=== PATIENT | female | born 1975 | race African-American/Black ===

== ENCOUNTER 2018-07-08 00:09 | Emergency (ER) | payer MEDICAID ==
[2018-07-08 00:36] LABS: ABSOLUTE BASOPHILS # (AUTO) 0.1 10^3/uL (0.0-0.2); ABSOLUTE EOSINOPHILS # (AUTO) 0.6 10^3/uL (0.0-0.6); ABSOLUTE LYMPHOCYTES (AUTO) 1.9 10^3/uL (0.5-4.7); ABSOLUTE MONOCYTES (AUTO) 1.5 10^3/uL (0.1-1.4); ABSOLUTE NEUT (AUTO) 8.3 10^3/uL (1.7-8.2); BASOPHILS % (AUTO) 0.5 % (0-2); EOSINOPHILS % (AUTO) 4.7 % (0-6); HEMATOCRIT 38.7 % (36.0-47.0); HEMOGLOBIN 12.4 g/dL (12.0-15.5); LYMPHOCYTES % (AUTO) 15.1 % (13-45); MEAN CORPUSCULAR HEMOGLOBIN 24.3 pg (27.0-33.4); MEAN CORPUSCULAR HGB CONC 32.1 g/dL (32.0-36.0); MEAN CORPUSCULAR VOLUME 76 fl (80-97); PLATELET COUNT 333 10^3/uL (150-450); RED BLOOD COUNT 5.12 10^6/uL (3.72-5.28); RED CELL DISTRIBUTION WIDTH 16.4 % (11.5-14.0); SEGMENTED NEUTROPHILS % (AUTO) 67.7 % (42-78); TOTAL CELLS COUNTED % (AUTO) 100 %; WHITE BLOOD COUNT 12.3 10^3/uL (4.0-10.5)
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
--- NOTE | 2018-07-08 00:57 | RADIOLOGY REPORT (SQ) ---
PROCEDURE: XR CHEST 1 VIEW HISTORY: SOB COMPARISON: None TECHNIQUE: The study was done on 07/08/2018 at 12:42 AM local time Single projection of the chest was done. FINDINGS: There is presence of mild left perihilar and mild right upper lung zone interstitial infiltrates. Follow-up to complete resolution of these infiltrates is suggested . There are no pneumothoraces or pleural effusions. The pulmonary vascularity is normal. The cardiomediastinal silhouette is unremarkable for patient's age and sex. IMPRESSION: There is presence of mild left perihilar and mild right upper lung zone interstitial infiltrates. Follow-up to complete resolution of these infiltrates is suggested .
[2018-07-08 01:11] LABS: VENOUS BLOOD BASE EXCESS 6.9 mmol/L; VENOUS BLOOD HCO3 34.1 mmol/L (20-32); VENOUS BLOOD PCO2 61.1 mmHg (35-63); VENOUS BLOOD PH 7.37 (7.30-7.42)
[2018-07-08 01:25] LABS: ALANINE AMINOTRANSFERASE 66 U/L (9-52); ALBUMIN 4.1 g/dL (3.5-5.0); ALKALINE PHOSPHATASE 331 U/L (38-126); ANION GAP 8 (5-19); ASPARTATE AMINO TRANSFERASE 82 U/L (14-36); BILIRUBIN,DIRECT 0.4 mg/dL (0.0-0.4); BILIRUBIN,TOTAL 0.5 mg/dL (0.2-1.3); BLOOD UREA NITROGEN 11 mg/dL (7-20); CARBON DIOXIDE 38 mmol/L (22-30); CHLORIDE 98 mmol/L (98-107); CREATINE KINASE 132 U/L (30-135); GLUCOSE 144 mg/dL (75-110); POTASSIUM 4.1 mmol/L (3.6-5.0); SODIUM 144.1 mmol/L (137-145); TOTAL PROTEIN 8.4 g/dL (6.3-8.2)
[2018-07-08 01:37] LABS: CREATINE KINASE MB 3.67 ng/mL (<4.55); NT PRO BNP 31 pg/mL (<125)
[2018-07-08 01:39] LABS: TROPONIN I < 0.012 ng/mL
[2018-07-08 02:57] VITALS: BP 147/96
--- NOTE | 2018-07-08 07:50 | EKG REPORT ---
SEVERITY:- ABNORMAL ECG - SINUS TACHYCARDIA NONSPECIFIC ST-T CHANGES, DIFFUSE. : Confirmed by: Antonio Snow MD 08-Jul-2018 07:49:33
== END 2018-07-08 02:57 | disposition home or self-care (01) ==
LOC: ER 00:09
DX: R06.03 Acute respiratory distress (principal); D86.89 Sarcoidosis of other sites; R07.9 Chest pain, unspecified; E11.9 Type 2 diabetes mellitus without complications; I50.9 Heart failure, unspecified; I11.0 Hypertensive heart disease with heart failure; Z79.84 Long term (current) use of oral hypoglycemic drugs
CPT/HCPCS: 36415; 71045; 80053; 82550; 82553; 82803; 83880; 84484; 85025; 93005; 93010; 99285

== ENCOUNTER → 2018-10-10 | Outpatient (CLI) | payer MEDICAID ==
--- NOTE | 2018-10-10 13:11 | RADIOLOGY REPORT (SQ) ---
EXAM DESCRIPTION: CHEST PA/LATERAL COMPLETED DATE/TIME: 10/10/2018 12:40 pm REASON FOR STUDY: COUGH COMPARISON: 07/08/2018 EXAM PARAMETERS: NUMBER OF VIEWS: two views TECHNIQUE: Digital Frontal and Lateral radiographic views of the chest acquired. RADIATION DOSE: NA LIMITATIONS: none FINDINGS: LUNGS AND PLEURA: Fairly extensive superimposed mixed airspace disease and interstitial d isease upon the chronic changes in the lungs. No pneumothorax or pleural effusion. MEDIASTINUM AND HILAR STRUCTURES: No masses or contour abnormalities. HEART AND VASCULAR STRUCTURES: Cardiomegaly, stable finding. No evidence for failure. BONES: No acute findings. HARDWARE: None in the chest. OTHER: No other significant finding. IMPRESSION: 1. Fairly extensive superimposed mixed airspace and interstitial disease upon the chron ic changes in the lungs, suggest infiltrates. Correlation suggested. TECHNICAL DOCUMENTATION: JOB ID: [id number] [employer]- All Rights Reserved Reading location - IP/workstation name: [email or web address]
== END ==
LOC: OD 12:14
PROVIDERS: ATTEND Physician Assistant
DX: J84.9 Interstitial pulmonary disease, unspecified (principal); R05 Cough; I51.7 Cardiomegaly
CPT/HCPCS: 71046

== ENCOUNTER → 2018-10-26 | Outpatient (CLI) | payer MEDICAID ==
--- NOTE | 2018-10-26 13:16 | RADIOLOGY REPORT (SQ) ---
EXAM DESCRIPTION: CHEST PA/LATERAL COMPLETED DATE/TIME: 10/26/2018 11:50 am REASON FOR STUDY: SARCOIDOSIS OF LUNG COMPARISON: 10/10/2018. 07/08/2018. TECHNIQUE: Frontal and lateral radiographic views of the chest acquired. NUMBER OF VIEWS: Two view. LIMITATIONS: None. FINDINGS: LUNGS AND PLEURA: Stable appearance. Extensive pulmonary opacities likely chronic interst itial disease. No change compared to prior. No developing pleural fluid. No pneumothorax. MEDIASTINUM AND HILAR STRUCTURES: Stable contours with some chronic distortion of the hilar regions. HEART AND VASCULAR STRUCTURES: Heart normal size. No evidence for failure. BONES: No acute findings. HARDWARE: None in the chest. OTHER: No other significant finding. IMPRESSION: Extensive chronic interstitial lung disease. Similar appearance compared to study from earlier this month. Probably slightly progressive compared to 2018. TECHNICAL DOCUMENTATION: JOB ID: [id number] [employer]- All Rights Reserved Reading location - IP/workstation name: [email or web address]
== END ==
LOC: OD 11:35
PROVIDERS: ATTEND Physician Assistant
DX: D86.0 Sarcoidosis of lung (principal); J84.9 Interstitial pulmonary disease, unspecified
CPT/HCPCS: 71046

== ENCOUNTER → 2019-02-02 | Outpatient (CLI) | payer MEDICAID ==
--- NOTE | 2019-02-02 17:11 | RADIOLOGY REPORT (SQ) ---
EXAM DESCRIPTION: CT CHEST WITHOUT COMPLETED DATE/TIME: 02/02/2019 3:14 pm REASON FOR STUDY: D86.0 SARCOIDOSIS OF LUNG D86.0 SARCOIDOSIS OF LUNG COMPARISON: Chest films 10/26/2018, 10/10/2018, 07/08/2018 TECHNIQUE: CT scan performed of the chest without intravenous contrast. Images reviewed with lung, soft tissue and bone windows. Reconstructed coronal and sagittal MPR images reviewed. All images st ored on PACS. All CT scanners at this facility use dose modulation, iterative reconstruction, and/or weight based d osing when appropriate to reduce radiation dose to as low as reasonably achievable (ALARA). [facility]: Dose Right [facility]: CareDose [facility]: Dose Right [facility]: Teradose 4D [facility]: Smart Technologies RADIATION DOSE: CT Rad equipment meets quality standard of care and radiation dose reduction techniq ues were employed. CTDIvol: 19.2 mGy. DLP: 672 mGy-cm. mGy. LIMITATIONS: No technical limitations. FINDINGS: LUNGS AND PLEURA: End-stage appearance of sarcoidosis in along common dense fibrosis in th e lung parenchyma around the bilateral marbella, best shown on coronal images 69-75. There chronic increased interstitial markings with thickened interlobular septa. Multiple foci of ground-glass opacity throughout both lungs. No pneumothorax. No pleural effusion. No worrisome pulmonary nodules. HILAR AND MEDIASTINAL STRUCTURES: No identified masses or abnormal nodes. No obvious aneurysm. HEART AND VASCULAR STRUCTURES: Moderate cardiomegaly. No pericardial effusion UPPER ABDOMEN: Liver is very nodular in contour. Spleen upper limits of normal for size THYROID AND OTHER SOFT TISSUES: No masses. No adenopathy. BONES: No significant finding. HARDWARE: None in the chest. OTHER: No other significant findings. IMPRESSION: Dense perihilar bilateral pulmonary fibrosis, similar compared to plain films since 2018 Thickened interlobular septae around the periphery of both lungs, diffuse ground-glass opacities in t he lung parenchyma. Similar compared to plain films since 2018 Nodular contour of the liver, question diffuse sarcoid involvement TECHNICAL DOCUMENTATION: JOB ID: [id number] Quality ID # [id number]: Final reports with documentation of one or more dose reduction techniques (e.g., Au tomated exposure control, adjustment of the mA and/or kV according to patient size, use of iterative reconstruction technique) 2010 [employer]- All Rights Reserved Reading location - IP/workstation name: [email or web address]
== END ==
LOC: RAD 14:41
PROVIDERS: ATTEND Internal Medicine Critical Care Medicine
DX: D86.0 Sarcoidosis of lung (principal); R09.02 Hypoxemia; I50.9 Heart failure, unspecified
CPT/HCPCS: 71250

== ENCOUNTER 2019-06-26 16:50 | Emergency (ER) | payer MEDICAID ==
[2019-06-26] MEDS ORDERED: METHYLPREDNISOLONE INJ 125 MG/2 ML SDV IV ONE (17:16)
[2019-06-26] MEDS ORDERED: IPRATROPIUM/ALBUTEROL 0.5-2.5 MG/3 ML AMPUL NEB ONE (17:17)
--- NOTE | 2019-06-26 17:23 | ER Document Report ---
ED General - General Chief Complaint: Chest Pain > 30 Stated Complaint: RESPIRATORY DISTRESS Time Seen by Provider: 06/26/19 17:05 Primary Care Provider: BOB CACERES PA [Primary Care Provider] - Follow up as needed TRAVEL OUTSIDE OF THE [place] IN LAST 30 DAYS: No - HPI Notes: 43-year-old female with long standing history of severe pulmonary sarcoidosis presenting today with increased shortness of breath despite use of her usual 6 L of oxygen at home. She also reports intermittent sharp scattered chest pains worse with coughing and deep inspiration. She is producing some clear sputum. She denies hemoptysis. She denies fever or chills. Says she feels fatigued. Patient denies any prior history of thromboembolic disease. She has been diagnosed with CHF in the past. She has hypertension and she is also a type II diabetic. Patient is currently on prednisone 10 mg daily. She uses nebulizer treatments at home and is taken 2 treatments today. She is followed locally by a hook loader and primary care physician. Her last hospitalization was over one year ago at [facility] with a diagnosis of pneumonia. - Related Data Allergies/Adverse Reactions: No Known Allergies Allergy (Verified 07/08/18 00:26) Past Medical History - General Information source: Patient - Social History Smoking Status: Unknown if Ever Smoked Family History: Reviewed & Not Pertinent Patient has suicidal ideation: No Patient has homicidal ideation: No - Past Medical History Cardiac Medical History: Reports: Hx Congestive Heart Failure Pulmonary Medical History: Reports: Other - Pulmonary sarcoidosis Endocrine Medical History: Reports: Hx Diabetes Mellitus Type 2 Renal/ Medical History: Denies: Hx Peritoneal Dialysis Skin Medical History: Reports Other - Cutaneous involvement with sarcoidosis Past Surgical History: Reports: Hx Hysterectomy, Hx Thyroid Surgery Review of Systems - Review of Systems Notes: Constitutional: Negative for fever. HENT: Negative for sore throat. Eyes: Negative for visual changes. Cardiovascular: As per HPI. Respiratory: As per HPI . Gastrointestinal: Negative for abdominal pain, vomiting or diarrhea. Genitourinary: Negative for dysuria. Musculoskeletal: Negative for back pain. Skin: Skin lesions related to sarcoidosis. Neurological: Negative for headaches, focal weakness or numbness. 10 point ROS negative except as marked above and in HPI. Physical Exam - Vital signs Vitals: Resp Pulse Ox 24 H 90 L 06/26/19 17:01 06/26/19 17:01 Notes: GENERAL: Somewhat obese female approximately stated age who appears mildly dyspneic on oxygen. She is awake and alert. SKIN: Good turgor. Multiple nodular lesions of the facial area which she attributes to her sarcoidosis. HEAD: Normocephalic atraumatic. EYES: PERRLA. Conjunctivae and sclerae clear. EARS: CANALS AND TMS CLEAR. NOSE: CLEAR. MOUTH: Moist mucosa. Edentulous. No stridor or edema. No drooling. NECK: Supple. Thyroidectomy scar. No masses or thyromegaly. No adenopathy. Carotids 2+ without bruits. No JVD. BACK: Symmetrical without tenderness. CHEST: Tachypneic. Respirations mildly labored. Diffuse coarse rales bilaterally. HEART: Regular rhythm. No murmur gallop or rub. ABDOMEN: Obese. Soft nontender without masses, organomegaly or rebound. Bowel sounds normally active. No bruits. GENITALIA: Deferred. EXTREMITIES: No edema. No calf tenderness. Cap refill less than 1.5 seconds. Dorsalis pedis and posterior tibial pulses 3+ and symmetrical. NEUROLOGICAL: GCS 15. Alert and oriented x3. Normal gait. Fluent speech. Cranial nerves II through XII intact. Sensorimotor and cerebellar normal. Normal tone Psychiatric: Anxious. Flat affect. Course - Re-evaluation Re-evalutation: 06/26/19 17:26 Differential diagnosis at this time include respiratory failure, sarcoidosis flare, acute bronchitis pneumonia CHF and pulmonary embolus 06/26/19 19:08 Patient is received a nebulizer treatment here and some Solu-Medrol 125 mg IV. Her blood gas does not not show significant decompensation on her usual 6 L of O2. Her chest x-ray is grossly abnormal but unchanged from baseline per radiology consistent with known sarcoidosis. There is no evidence of vascular congestion, no pleural effusion no pneumothorax and no new focal infiltrate. White count is mildly elevated. D-dimer is normal. Troponin is normal. BNP is not elevated. All these findings have been discussed with patient and her . She very much wants to go home today if possible. I will give the patient a dose of Rocephin here as I suspect she may have some superimposed bronchitis and she would be a high risk patient because of her substantial pulmonary disease. I will recheck her within the next hour and anticipate sending her home on oral antibiotic and will increase her dose of steroids for a few days and have her follow-up with her hook loader. 06/26/19 20:47 Continues to do well at this time and is requesting discharge. - Vital Signs Vital signs: Temp Pulse Resp BP Pulse Ox 98.4 F 19 124/92 H 95 06/26/19 17:15 06/26/19 17:02 06/26/19 17:02 06/26/19 17:02 - Laboratory Result Diagrams: 06/26/19 17:04 06/26/19 17:04 Laboratory results interpreted by me: 06/26/19 06/26/19 06/26/19 17:04 17:04 17:43 WBC 13.9 H MCV 77 L MCH 24.6 L MCHC 31.9 L RDW 16.1 H Lymph % (Auto) 7.8 L Absolute Neuts (auto) 11.7 H Seg Neutrophils % 84.0 H Carbonic Acid 1.48 H ABG pCO2 49.2 H ABG HCO3 30.2 H ABG Total CO2 31.7 H Glucose 191 H AST 56 H Alkaline Phosphatase 291 H Total Protein 8.7 H - Diagnostic Test Radiology reviewed: Reports reviewed - EKG Interpretation by Me EKG shows normal: Sinus rhythm Rate: Normal Rhythm: Other - First-degree AV block Additional EKG results interpreted by me: 06/26/19 17:52 No prior tracing for comparison. No acute ST-T wave changes. Procedures - Additional Procedures ABG Additional Procedures: ABG - Drawn by me personally at bedside. Right radial artery. Negative Santosh test. Well-tolerated by the patient with no c omplications noted. Discharge - Discharge Clinical Impression: Pulmonary sarcoidosis Acute bronchitis Qualifiers: Bronchitis organism: unspecified organism Qualified Code(s): J20.9 - Acute bronchitis, unspecified Condition: Stable Disposition: HOME, SELF-CARE Additional Instructions: Bronchitis You have acute bronchitis. This disease is an infection or inflammation of the air passageways in your lungs. Symptoms usually include cough, low grade fever, shortness of breath, and wheezing. The cough usually persists for a couple of weeks. Most cases of bronchitis get better without antibiotics. We prescribe antibiotics when we believe bacteria are damaging your airways, or if there's high risk the bronchitis will worsen into pneumonia. Increase your fluid intake. A cool mist humidifier may make your lungs more comfortable. An expectorant (cough medicine that loosens phlegm) can help. If you smoke, STOP!!! Recovery from bronchitis can be somewhat slow, but you should see improvement within a day or two. Repeated episodes of bronchitis may result in lung damage -- for example, chronic bronchitis, recurrent pneumonias, or emphysema. Call the doctor if you develop increasing fever, shortness of breath, chest pain, bloody sputum, or otherwise worsen. If you have not improved at all after several days, contact the physician. Continue your usual home oxygen. Increase your prednisone to 30 mg a day for 3 days, then 20 mg a day for 3 days and then back to your usual 10 mg/day. Take prescribed antibiotic. Use your nebulizer as needed. Return here as needed for new or worsening symptoms. Follow-up with your primary care doctor and her hook loader this week. Prescriptions: Doxycycline Hyclate 100 mg PO BID #14 capsule Referrals: BOB CACERES PA [Primary Care Provider] - Follow up as needed
[2019-06-26 17:28] LABS: ABSOLUTE EOSINOPHILS # (AUTO) 0.3 10^3/uL (0.0-0.6); ABSOLUTE LYMPHOCYTES (AUTO) 1.1 10^3/uL (0.5-4.7); ABSOLUTE MONOCYTES (AUTO) 0.8 10^3/uL (0.1-1.4); ABSOLUTE NEUT (AUTO) 11.7 10^3/uL (1.7-8.2); BASOPHILS % (AUTO) 0.3 % (0-2); EOSINOPHILS % (AUTO) 2.2 % (0-6); HEMATOCRIT 37.7 % (36.0-47.0); LYMPHOCYTES % (AUTO) 7.8 % (13-45); MEAN CORPUSCULAR HEMOGLOBIN 24.6 pg (27.0-33.4); MEAN CORPUSCULAR HGB CONC 31.9 g/dL (32.0-36.0); MEAN CORPUSCULAR VOLUME 77 fl (80-97); MONOCYTES % (AUTO) 5.7 % (3-13); PLATELET COUNT 300 10^3/uL (150-450); RED BLOOD COUNT 4.87 10^6/uL (3.72-5.28); RED CELL DISTRIBUTION WIDTH 16.1 % (11.5-14.0); TOTAL CELLS COUNTED % (AUTO) 100 %; WHITE BLOOD COUNT 13.9 10^3/uL (4.0-10.5)
[2019-06-26 17:33] LABS: INTERNATIONAL RATION (INR) 0.94; PROTHROMBIN TIME 12.6 SEC (11.4-15.4)
[2019-06-26 17:34] LABS: PARTIAL THROMBOPLASTIN TIME 29.7 SEC (23.5-35.8)
[2019-06-26 17:50] LABS: ALBUMIN 4.3 g/dL (3.5-5.0); ALKALINE PHOSPHATASE 291 U/L (38-126); ANION GAP 12 (5-19); ASPARTATE AMINO TRANSFERASE 56 U/L (14-36); BILIRUBIN,DIRECT 0.3 mg/dL (0.0-0.4); BILIRUBIN,TOTAL 0.4 mg/dL (0.2-1.3); BLOOD UREA NITROGEN 11 mg/dL (7-20); CALCIUM 9.7 mg/dL (8.4-10.2); CARBON DIOXIDE 30 mmol/L (22-30); CHLORIDE 101 mmol/L (98-107); CREATINE KINASE 91 U/L (30-135); GLUCOSE 191 mg/dL (75-110); POTASSIUM 4.2 mmol/L (3.6-5.0); TOTAL PROTEIN 8.7 g/dL (6.3-8.2)
[2019-06-26 17:59] LABS: CREATINE KINASE MB 2.45 ng/mL (<4.55)
--- NOTE | 2019-06-26 18:00 | RADIOLOGY REPORT (SQ) ---
EXAM DESCRIPTION: CHEST SINGLE VIEW COMPLETED DATE/TIME: 06/26/2019 5:33 pm REASON FOR STUDY: chest pain, sob COMPARISON: 10/26/2018 TECHNIQUE: Single frontal radiographic view of the chest acquired. NUMBER OF VIEWS: One view. LIMITATIONS: None. FINDINGS: LUNGS AND PLEURA: No pneumothorax. Similar diffuse reticulonodular-confluent opacities co mpared with the prior exam. No acute consolidation or pleural effusion. MEDIASTINUM AND HILAR STRUCTURES: Stable. HEART AND VASCULAR STRUCTURES: Stable. BONES: No acute findings. HARDWARE: None in the chest. OTHER: No other significant finding. IMPRESSION: Similar diffuse reticulonodular-confluent opacities compared with the prior exam. No ac ak chin consolidation or pleural effusion. TECHNICAL DOCUMENTATION: JOB ID: [id number] [place]-72 2010 [employer]- All Rights Reserved Reading location - IP/workstation name: [email or web address]
[2019-06-26 18:03] LABS: TROPONIN I < 0.012 ng/mL
[2019-06-26 18:07] LABS: ARTERIAL BLOOD BASE EXCESS 4.6 mmol/L; ARTERIAL BLOOD H2CO3 1.48 mmol/L (1.05-1.35); ARTERIAL BLOOD HCO3 30.2 mmol/L (20-24); ARTERIAL BLOOD O2 SATURATION 97.4 % (94-98); ARTERIAL BLOOD PCO2 49.2 mmHg (35-45); ARTERIAL BLOOD PH 7.41 (7.35-7.45); ARTERIAL BLOOD TOTAL CO2 31.7 mmol/L (21-25)
[2019-06-26 18:09] LABS: ARTERIAL BLOOD FIO2 6L
[2019-06-26] MEDS ORDERED: CEFTRIAXONE 1 GM/D5W RTU 1 GM/50 ML RTUPB IV ONE (19:06)
--- NOTE | 2019-06-26 19:12 | EKG REPORT ---
SEVERITY:- ABNORMAL ECG - SINUS RHYTHM FIRST DEGREE AV BLOCK NONSPECIFIC LATERAL ST-T CHANGES : Confirmed by: Antonio Snow MD 26-Jun-2019 19:11:42
[2019-06-26 20:54] VITALS: BP 145/89
== END 2019-06-26 21:04 | disposition home or self-care (01) ==
LOC: ER 16:50
DX: J20.9 Acute bronchitis, unspecified (principal); D86.0 Sarcoidosis of lung; R07.9 Chest pain, unspecified; R06.02 Shortness of breath; E66.9 Obesity, unspecified; E11.9 Type 2 diabetes mellitus without complications; I50.9 Heart failure, unspecified; I11.0 Hypertensive heart disease with heart failure; Z90.710 Acquired absence of both cervix and uterus; Z99.81 Dependence on supplemental oxygen
CPT/HCPCS: 36415; 87040; 82553; 82803; 82550; 85025; 85610; 85730; 80053; 84484; 85379; 83880; 71045; 93005; 93010; J2930; J0696; J7620; 36600; 94640; 96365; 96375; 99285

== ENCOUNTER 2019-07-27 11:46 | Observation (INO) | payer MEDICAID ==
[2019-07-27] MEDS ORDERED: IPRATROPIUM/ALBUTEROL 0.5-2.5 MG/3 ML AMPUL NEB ONE ×2 (12:03→14:25)
--- NOTE | 2019-07-27 12:03 | ER Document Report ---
ED Respiratory Problem - General Chief Complaint: Breathing Difficulty Stated Complaint: DIFFICULTY BREATHING Time Seen by Provider: 07/27/19 12:03 Primary Care Provider: BOB CACERES PA [Primary Care Provider] - Follow up as needed Notes: Patient is a 43-year-old female with a history of sarcoidosis and bronchospasm who comes in with difficulty breathing. Patient states that she usually wears 5 to 6 L of oxygen during the day and 8 L at night with CPAP. Her breathing has gotten worse over the last 2 days. She has had a productive cough but states clear sputum. No fever. Unaware of sick contacts. No recent travel. Patient was seen in June for similar symptoms. States she got better and then sta rted to get worse again recently. She is still taking prednisone 10 mg daily. TRAVEL OUTSIDE OF THE [place] IN LAST 30 DAYS: No - HPI Patient complains to provider of: Short of breath Duration: Worse/persistent Quality of pain: No pain Pain Level: Denies Sputum amount: Small Sputum color: Clear - Related Data Allergies/Adverse Reactions: No Known Allergies Allergy (Verified 07/08/18 00:26) Past Medical History - General Information source: Patient - Social History Smoking Status: Unknown if Ever Smoked Cigarette use (# per day): No Family History: Reviewed & Not Pertinent Endocrine Medical History: Reports: Hx Diabetes Mellitus Type 2 Renal/ Medical History: Denies: Hx Peritoneal Dialysis Past Surgical History: Reports: Hx Hysterectomy, Hx Thyroid Surgery Review of Systems - Review of Systems Constitutional: No symptoms reported EENT: No symptoms reported Cardiovascular: No symptoms reported Respiratory: See HPI, Cough, Short of breath Gastrointestinal: No symptoms reported Genitourinary: No symptoms reported Female Genitourinary: No symptoms reported Musculoskeletal: No symptoms reported Skin: No symptoms reported Hematologic/Lymphatic: No symptoms reported Neurological/Psychological: No symptoms reported Physical Exam - Vital signs Vitals: Resp BP Pulse Ox 27 H 137/91 H 92 07/27/19 12:37 07/27/19 12:37 07/27/19 12:37 Interpretation: Hypoxic, Tachypneic - General General appearance: Alert In distress: Moderate - HEENT Head: Normocephalic, Atraumatic Eyes: Normal Pupils: PERRL - Respiratory Respiratory status: Respiratory distress Chest status: Nontender Breath sounds: Decreased air movement, Rales, Wheezing Chest palpation: Normal - Cardiovascular Rhythm: Regular Heart sounds: Normal auscultation Murmur: No - Abdominal Inspection: Morbidly Obese Distension: No distension Bowel sounds: Normal Tenderness: Nontender Organomegaly: No organomegaly - Back Back: Normal, Nontender - Extremities General upper extremity: Normal inspection, Nontender, Normal color, Normal ROM, Normal temperature General lower extremity: Normal inspection, Nontender, Normal color, Normal ROM, Normal temperature, Normal weight bearing. No: Catina's sign - Neurological Neuro grossly intact: Yes Cognition: Normal Orientation: AAOx4 Racheal Coma Scale Eye Opening: Spontaneous Taylor Coma Scale Verbal: Oriented Taylor Coma Scale Motor: Obeys Commands Taylor Coma Scale Total: 15 Speech: Normal Motor strength normal: LUE, RUE, LLE, RLE Sensory: Normal - Psychological Associated symptoms: Normal affect, Normal mood - Skin Skin Temperature: Warm Skin Moisture: Dry Skin Color: Normal Course - Re-evaluation Re-evalutation: 07/27/19 15:03 Patient more comfortable on BiPAP 07/27/19 17:25 Patient is a 43-year-old female who comes in with difficulty breathing. Lactic is up trending despite fluid bolus. No evidence for heart failure. More concerning the patient may have pneumonia that I cannot visualize on chest x- ray. I have attempted to send the patient for a CTA to further evaluate her symptoms, but she has been unable to tolerate this. Patient with negative CTA last year for PE. At this time, she is comfortable on BiPAP but will require admission for respiratory distress and worsening hypoxia at home despite her oxygen there. I have discussed this with Dr. Cazares who will admit the patient to the IMCU. Patient is agreeable to this plan. - Vital Signs Vital signs: Temp Pulse Resp BP Pulse Ox 98.5 F 115 H 14 137/83 H 96 07/27/19 12:58 07/27/19 12:58 07/27/19 14:10 07/27/19 13:01 07/27/19 14:10 - Laboratory Result Diagrams: 07/27/19 12:41 07/27/19 12:41 Laboratory results interpreted by me: 07/27/19 07/27/19 07/27/19 12:41 12:41 12:41 WBC 16.3 H MCV 76 L MCH 24.3 L MCHC 31.9 L RDW 16.4 H Lymph % (Auto) 6.4 L Absolute Neuts (auto) 13.2 H Absolute Monos (auto) 1.5 H Seg Neutrophils % 81.0 H VBG HCO3 Chloride 96 L Carbon Dioxide 35 H Glucose 220 H Lactic Acid (Sepsis) 2.8 H AST 67 H Alkaline Phosphatase 265 H 07/27/19 07/27/19 12:41 15:32 WBC MCV MCH MCHC RDW Lymph % (Auto) Absolute Neuts (auto) Absolute Monos (auto) Seg Neutrophils % VBG HCO3 33.1 H Chloride Carbon Dioxide Glucose Lactic Acid (Sepsis) 2.9 H AST Alkaline Phosphatase Critical Care Note - Critical Care Note Total time excluding time spent on procedures (mins): 45 - Evaluation and management of respiratory distress, multiple re-evaluations, coordination of admission, counseling of patient and family Discharge - Discharge Clinical Impression: Respiratory distress Condition: Stable Disposition: ADMITTED INPATIENT Admitting Provider: Nicole (Hospitalist) Unit Admitted: IMCU Referrals: BOB CACERES PA [Primary Care Provider] - Follow up as needed
[2019-07-27 13:15] LABS: VENOUS BLOOD HCO3 33.1 mmol/L (20-32); VENOUS BLOOD PCO2 59.3 mmHg (35-63); VENOUS BLOOD PH 7.36 (7.30-7.42)
[2019-07-27 13:17] LABS: ABSOLUTE EOSINOPHILS # (AUTO) 0.5 10^3/uL (0.0-0.6); ABSOLUTE MONOCYTES (AUTO) 1.5 10^3/uL (0.1-1.4); ABSOLUTE NEUT (AUTO) 13.2 10^3/uL (1.7-8.2); BASOPHILS % (AUTO) 0.3 % (0-2); EOSINOPHILS % (AUTO) 3.2 % (0-6); HEMATOCRIT 37.5 % (36.0-47.0); LYMPHOCYTES % (AUTO) 6.4 % (13-45); MEAN CORPUSCULAR HEMOGLOBIN 24.3 pg (27.0-33.4); MEAN CORPUSCULAR HGB CONC 31.9 g/dL (32.0-36.0); MEAN CORPUSCULAR VOLUME 76 fl (80-97); MONOCYTES % (AUTO) 9.1 % (3-13); PLATELET COUNT 293 10^3/uL (150-450); RED BLOOD COUNT 4.92 10^6/uL (3.72-5.28); RED CELL DISTRIBUTION WIDTH 16.4 % (11.5-14.0); TOTAL CELLS COUNTED % (AUTO) 100 %; WHITE BLOOD COUNT 16.3 10^3/uL (4.0-10.5)
--- NOTE | 2019-07-27 13:21 | RADIOLOGY REPORT (SQ) ---
EXAM DESCRIPTION: CHEST SINGLE VIEW COMPLETED DATE/TIME: 07/27/2019 12:55 pm REASON FOR STUDY: pt will be in room 6 when clean-sepsis protocol COMPARISON: 06/26/2019 NUMBER OF VIEWS: Single view. TECHNIQUE: Single frontal radiographic view of the chest acquired. LIMITATIONS: None. FINDINGS: LUNGS AND PLEURA: Diffuse pulmonary fibrosis, more conspicuous in the perihilar regions. Patient has known chronic sarcoid. No obvious superimposed pneumonia. MEDIASTINUM AND HILAR STRUCTURES: Stable. HEART AND VASCULATURE: Stable cardiomegaly. BONES: No acute findings. HARDWARE: None in the chest. OTHER: No other significant finding. IMPRESSION: Chronic sarcoid. Pulmonary fibrosis. No acute findings. TECHNICAL DOCUMENTATION: JOB ID: [id number] [employer]- All Rights Reserved Reading location - IP/workstation name: [email or web address]
[2019-07-27 13:26] LABS: PROTHROMBIN TIME 13.2 SEC (11.4-15.4)
[2019-07-27 13:33] LABS: A TYPE INFLUENZA AG NEGATIVE (NEGATIVE); ALBUMIN 4.3 g/dL (3.5-5.0); ALKALINE PHOSPHATASE 265 U/L (38-126); ANION GAP 12 (5-19); ASPARTATE AMINO TRANSFERASE 67 U/L (14-36); B INFLUENZA AG NEGATIVE (NEGATIVE); BILIRUBIN,DIRECT 0.4 mg/dL (0.0-0.4); BILIRUBIN,TOTAL 0.9 mg/dL (0.2-1.3); BLOOD UREA NITROGEN 7 mg/dL (7-20); CALCIUM 9.7 mg/dL (8.4-10.2); CARBON DIOXIDE 35 mmol/L (22-30); CHLORIDE 96 mmol/L (98-107); GLUCOSE 220 mg/dL (75-110); POTASSIUM 3.6 mmol/L (3.6-5.0)
[2019-07-27] MEDS ORDERED: METHYLPREDNISOLONE INJ 125 MG/2 ML SDV IV ONE (14:24)
[2019-07-27] MEDS ORDERED: NORMAL SALINE 500 ML IV ONE (14:40)
[2019-07-27] MEDS: MAGNESIUM SULFATE/D5W 1 GM/100 ML RTUPB IV SCH (15:26)
[2019-07-27 15:30] LABS: NT PRO BNP 53 pg/mL (<125); TROPONIN I < 0.012 ng/mL
[2019-07-27] MEDS ORDERED: LEVOFLOXACIN 750 MG/D5W RTU 750 MG/150 ML RTUPB IV ONE (17:17)
[2019-07-27] MEDS ORDERED: IPRATROPIUM/ALBUTEROL 0.5-2.5 MG/3 ML AMPUL NEB PRN (17:55)
[2019-07-27] MEDS ORDERED: DEXTROSE 50%-WATER 25 GM/50 ML DISP.SYRIN IV PRN ×2 (17:55)
[2019-07-27] MEDS ORDERED: DEXTROSE 40% GEL 15 GM TUBE PO PRN ×2 (17:55)
[2019-07-27] MEDS ORDERED: GLUCAGON,HUMAN RECOMB 1 MG INJ IM PRN (17:55)
--- NOTE | 2019-07-27 18:03 | PDOC H&P ---
History of Present Illness Admission Date/PCP: 07/27/19 17:27 SHELDON WILHELM Patient complains of: SOB History of Present Illness: TRE WARREN is a 43 year old female with a past medical history of chronic hypoxemic respiratory failure on 6 L of home O2, severe pulmonary sarcoidosis, sarcoid liver, and hypertension who presented with increasing shortness of breath. Patient says that she has chronic shortness of breath at her baseline. She reports of worsening shortness of breath in the past 2 days. She says that she gets this when the humidity significantly changes or when it rains heavily. She reports chronic cough but denies any recent increase in sputum production. Denies fever or chills. In the ER, she was noted to be very tachypneic. Work- up was remarkable for increased lactate and leukocytosis. She was given Solu- Medrol and magnesium and breathing treatment and she reported partial relief. She was placed on BiPAP. She expressed she wants to be discharged from the ER but after further discussion, she agreed to be admitted. She denies history of congestive heart failure. She says she was referred by Dr. Campos to Dr. Snow earlier this year to assess for CHF. She reports she had an echo done at his clinic and was told she does not have CHF. Past Medical History Cardiac Medical History: Reports: Congestive Heart Failure Endocrine Medical History: Reports: Diabetes Mellitus Type 2 Past Surgical History Past Surgical History: Reports: Hysterectomy Social History Smoking Status: Unknown if Ever Smoked Electronic Cigarette use?: No Family History Family History: Reviewed & Not Pertinent Parental Family History Reviewed: Yes - No premature CAD Children Family History Reviewed: No Sibling(s) Family History Reviewed.: No Medication/Allergy Allergies/Adverse Reactions: No Known Allergies Allergy (Verified 07/08/18 00:26) Review of Systems All systems: reviewed and no additional remarkable complaints except as stated - As mentioned in HPI Physical Exam Vital Signs: Temp Pulse Resp BP Pulse Ox 98.5 F 115 H 14 137/83 H 96 07/27/19 12:58 07/27/19 12:58 07/27/19 14:10 07/27/19 13:01 07/27/19 14:10 Intake & Output 07/26/19 07/27/19 07/28/19 06:59 06:59 06:59 Intake Total 600 Balance 600 Weight 243 lb 2.718 oz General appearance: PRESENT: no acute distress, obese Head exam: PRESENT: atraumatic, normocephalic Eye exam: PRESENT: conjunctiva pink, EOMI, PERRLA. ABSENT: scleral icterus Ear exam: PRESENT: normal external ear exam Mouth exam: PRESENT: moist, tongue midline Neck exam: ABSENT: carotid bruit, JVD, lymphadenopathy, thyromegaly Respiratory exam: PRESENT: clear to auscultation lien, rales, rhonchi. ABSENT: wheezes Cardiovascular exam: PRESENT: RRR. ABSENT: diastolic murmur, rubs, systolic murmur Pulses: PRESENT: normal dorsalis pedis pul GI/Abdominal exam: PRESENT: normal bowel sounds, soft. ABSENT: distended, guarding, mass, organolmegaly, rebound, tenderness Rectal exam: PRESENT: deferred Extremities exam: PRESENT: +2 edema Neurological exam: PRESENT: alert, awake, oriented to person, oriented to place, oriented to time, oriented to situation, CN II-XII grossly intact. ABSENT: motor sensory deficit Results Laboratory Results: 07/27/19 12:41 07/27/19 12:41 07/27/19 07/27/19 07/27/19 12:41 12:41 12:41 WBC 16.3 H RBC 4.92 Hgb 12.0 Hct 37.5 MCV 76 L MCH 24.3 L MCHC 31.9 L RDW 16.4 H Plt Count 293 Seg Neutrophils % 81.0 H VBG pH 7.36 VBG pCO2 59.3 VBG HCO3 33.1 H VBG Base Excess 6.0 Sodium 143.1 Potassium 3.6 Chloride 96 L Carbon Dioxide 35 H Anion Gap 12 BUN 7 Creatinine 0.57 Est GFR ( Amer) > 60 Glucose 220 H Calcium 9.7 Total Bilirubin 0.9 AST 67 H Alkaline Phosphatase 265 H Total Protein 8.0 Albumin 4.3 07/27/19 12:41 Troponin I < 0.012 NT-Pro-B Natriuret Pep 53 Impressions: Chest X-Ray 07/27/19 12:00 IMPRESSION: Chronic sarcoid. Pulmonary fibrosis. No acute findings. Assessment and Plan - Diagnosis (1) Acute on chronic respiratory failure with hypoxia Is this a current diagnosis for this admission?: Yes Plan: Likely secondary to flareup of sarcoidosis. Suspect possible pneumonitis. Will empirically continue IV antibiotics. Will also place patient on high-dose IV steroids. CT of the chest was ordered palpation has severe claustrophobia. Offered to give her Ativan to try to calm her down but she refused and she says she cannot even tolerate the sight of a CT scan machine. Continue BiPAP PRN. (2) Sarcoidosis of lung Is this a current diagnosis for this admission?: Yes Plan: As per #1. (3) Hypertension Is this a current diagnosis for this admission?: Yes - Time Time Spent with patient: 25-34 minutes
--- NOTE | 2019-07-27 18:04 | ADVANCED CARE ---
- Diagnosis (1) Acute on chronic respiratory failure with hypoxia Diagnosis Current: Yes (2) Hypertension Diagnosis Current: Yes (3) Sarcoidosis of lung Diagnosis Current: Yes Resuscitation Status: Full Code Discussion: Discussed with patient and fimartha on the bedside. She know she has severe and irreversible lung disease however she verbalized that she wants to be a full code and prefers to receive chest compressions, defibrillation as well as mechanical ventilation if the need arises. She says that her fiancBg is her surrogate medical decision maker.
[2019-07-27] MEDS ORDERED: NORMAL SALINE 1000 ML 1,000 ML IV PRN (18:05)
[2019-07-27] MEDS: NORMAL SALINE 1000 ML 1,000 ML IV PRN ×2 (18:36→23:24)
[2019-07-27] MEDS: HEPARIN SOD (PORCINE) 5,000 UNIT/ML 1 ML VIAL SUBCUT SCH (22:10)
[2019-07-27] MEDS: INSULIN LISPRO 100 UNIT/ML 3 ML VIAL SUBCUT SCH (22:15)
[2019-07-27] MEDS: METHYLPREDNISOLONE INJ 40 MG/1 ML SDV IV SCH (22:15)
[2019-07-27] MEDS: LEVALBUTEROL HCL NEB 1.25 MG/3 ML AMPUL NEB SCH (22:15)
[2019-07-27] MEDS ORDERED: ACETAMINOPHEN 325 MG TABLET PO PRN (23:11)
[2019-07-28] MEDS: LEVALBUTEROL HCL NEB 1.25 MG/3 ML AMPUL NEB SCH ×4 (01:53→19:55)
[2019-07-28] MEDS: HEPARIN SOD (PORCINE) 5,000 UNIT/ML 1 ML VIAL SUBCUT SCH ×3 (05:05→21:56)
[2019-07-28] MEDS: METHYLPREDNISOLONE INJ 40 MG/1 ML SDV IV SCH ×2 (06:09→22:11)
[2019-07-28 06:53] LABS: ABSOLUTE BASOPHILS # (AUTO) 0.1 10^3/uL (0.0-0.2); ABSOLUTE LYMPHOCYTES (AUTO) 1.2 10^3/uL (0.5-4.7); ABSOLUTE MONOCYTES (AUTO) 0.9 10^3/uL (0.1-1.4); ABSOLUTE NEUT (AUTO) 15.7 10^3/uL (1.7-8.2); BASOPHILS % (AUTO) 0.3 % (0-2); EOSINOPHILS % (AUTO) 0.1 % (0-6); HEMATOCRIT 36.5 % (36.0-47.0); HEMOGLOBIN 11.5 g/dL (12.0-15.5); LYMPHOCYTES % (AUTO) 6.9 % (13-45); MEAN CORPUSCULAR HEMOGLOBIN 24.1 pg (27.0-33.4); MEAN CORPUSCULAR HGB CONC 31.5 g/dL (32.0-36.0); MEAN CORPUSCULAR VOLUME 76 fl (80-97); MONOCYTES % (AUTO) 5.3 % (3-13); PLATELET COUNT 280 10^3/uL (150-450); RED BLOOD COUNT 4.78 10^6/uL (3.72-5.28); RED CELL DISTRIBUTION WIDTH 16.6 % (11.5-14.0); SEGMENTED NEUTROPHILS % (AUTO) 87.4 % (42-78); TOTAL CELLS COUNTED % (AUTO) 100 %
[2019-07-28 07:16] LABS: ANION GAP 12 (5-19); BLOOD UREA NITROGEN 13 mg/dL (7-20); CALCIUM 10.3 mg/dL (8.4-10.2); CARBON DIOXIDE 29 mmol/L (22-30); CHLORIDE 100 mmol/L (98-107); GLUCOSE 285 mg/dL (75-110)
[2019-07-28] MEDS: INSULIN LISPRO 100 UNIT/ML 3 ML VIAL SUBCUT SCH ×4 (08:50→22:11)
[2019-07-28] MEDS: LEVOFLOXACIN 500 MG/D5W RTU 500 MG/100 ML RTUPB IV SCH (09:18)
--- NOTE | 2019-07-28 15:50 | EKG REPORT ---
SEVERITY:- BORDERLINE ECG - SINUS TACHYCARDIA PROBABLE LEFT ATRIAL ABNORMALITY : Confirmed by: Suresh Roman 28-Jul-2019 15:49:51
--- NOTE | 2019-07-28 16:01 | PDOC PROGRESS REPORT ---
Subjective Progress Note for:: 07/28/19 Subjective:: No acute event overnight. Patient was weaned off BiPAP overnight. She is currently saturating well and appears comfortable on nasal cannula. She says that her shortness of breath has improved overnight. Denies chest pain. Reason For Visit: ACUTE HYPOXIC RESPIRATORY FAILURE,SARCOIDOSIS Physical Exam Vital Signs: Temp Pulse Resp BP Pulse Ox 98.0 F 110 H 16 129/78 H 93 07/28/19 15:45 07/28/19 15:45 07/28/19 15:45 07/28/19 15:45 07/28/19 15:45 Intake & Output 07/27/19 07/28/19 07/29/19 06:59 06:59 06:59 Intake Total 2750 340 Balance 2750 340 Weight 243 lb 2.718 oz 243 lb 13.3 oz General appearance: PRESENT: no acute distress, well-developed, well-nourished Head exam: PRESENT: atraumatic, normocephalic Eye exam: PRESENT: conjunctiva pink, EOMI, PERRLA. ABSENT: scleral icterus Ear exam: PRESENT: normal external ear exam Mouth exam: PRESENT: moist, tongue midline Neck exam: ABSENT: carotid bruit, JVD, lymphadenopathy, thyromegaly Respiratory exam: PRESENT: rhonchi. ABSENT: rales, wheezes Cardiovascular exam: PRESENT: RRR. ABSENT: diastolic murmur, rubs, systolic murmur Pulses: PRESENT: normal dorsalis pedis pul GI/Abdominal exam: PRESENT: normal bowel sounds, soft. ABSENT: distended, guarding, mass, organolmegaly, rebound, tenderness Rectal exam: PRESENT: deferred Extremities exam: PRESENT: full ROM, +1 edema. ABSENT: calf tenderness, clubbing Neurological exam: PRESENT: alert, awake, oriented to person, oriented to place, oriented to time, oriented to situation, CN II-XII grossly intact. ABSENT: motor sensory deficit Results Laboratory Results: 07/28/19 06:36 07/28/19 06:36 07/28/19 07/28/19 07/28/19 06:36 06:36 06:36 WBC 18.0 H RBC 4.78 Hgb 11.5 L Hct 36.5 MCV 76 L MCH 24.1 L MCHC 31.5 L RDW 16.6 H Plt Count 280 Seg Neutrophils % 87.4 H Sodium 141.4 Potassium 5.0 D Chloride 100 Carbon Dioxide 29 Anion Gap 12 BUN 13 Creatinine 0.53 Est GFR ( Amer) > 60 Glucose 285 H Lactic Acid 2.1 Calcium 10.3 H 07/27/19 12:41 Troponin I < 0.012 NT-Pro-B Natriuret Pep 53 Impressions: Chest X-Ray 07/27/19 12:00 IMPRESSION: Chronic sarcoid. Pulmonary fibrosis. No acute findings. Assessment and Plan - Diagnosis (1) Acute on chronic respiratory failure with hypoxia Is this a current diagnosis for this admission?: Yes Plan: Likely secondary to flareup of sarcoidosis. Suspect possible pneumonitis. Weaned off BiPAP. Saturating well on nasal cannula on home O2 requirement. (2) Sarcoidosis of lung Is this a current diagnosis for this admission?: Yes Plan: Decrease Solu-Medrol to 40 mg IV every 12. (3) Hypertension Is this a current diagnosis for this admission?: Yes (4) Elevated lactic acid level Is this a current diagnosis for this admission?: Yes - Time Time Spent with patient: 25-34 minutes
[2019-07-29] MEDS: LEVALBUTEROL HCL NEB 1.25 MG/3 ML AMPUL NEB SCH ×3 (02:19→14:23)
[2019-07-29] MEDS: HEPARIN SOD (PORCINE) 5,000 UNIT/ML 1 ML VIAL SUBCUT SCH ×2 (05:15→15:43)
[2019-07-29] MEDS: INSULIN LISPRO 100 UNIT/ML 3 ML VIAL SUBCUT SCH ×3 (08:33→16:22)
[2019-07-29] MEDS: METHYLPREDNISOLONE INJ 40 MG/1 ML SDV IV SCH (11:05)
[2019-07-29] MEDS: LEVOFLOXACIN 500 MG/D5W RTU 500 MG/100 ML RTUPB IV SCH (11:05)
--- NOTE | 2019-07-29 14:37 | PDOC DISCHARGE SUMMARY ---
Impression - Admit/DC Date/PCP Admission Date/Primary Care Provider: 07/27/19 17:27 SHELDON WILHELM Discharge Date: 07/29/19 - Discharge Diagnosis (1) Acute on chronic respiratory failure with hypoxia Is this a current diagnosis for this admission?: Yes (2) Sarcoidosis of lung Is this a current diagnosis for this admission?: Yes (3) Hypertension Is this a current diagnosis for this admission?: Yes (4) Elevated lactic acid level Is this a current diagnosis for this admission?: Yes - Additional Information Resuscitation Status: Full Code Referrals: BOB CACERES PA [Primary Care Provider] - Follow up as needed Prescriptions: Albuterol Sulfate [Albuterol Sulfate Hfa] 18 gm IH Q6HP PRN #1 [id number].[id number] PRN Reason: for SOB or wheezing Prednisone [Deltasone 20 mg Tablet] 20 mg PO BID 5 Days #10 tablet Home Medications: Amlodipine Besylate [Norvasc 5 mg Tablet] 5 mg PO DAILY 07/27/19 Sitagliptin Phos/Metformin HCl [Janumet 50-1,000 mg Tablet] 1 tab PO BID 07/27/19 Albuterol Sulfate [Albuterol Sulfate Hfa] 18 gm IH Q6HP PRN #1 hfa.aer.[id number] 07/29/19 Prednisone [Deltasone 20 mg Tablet] 20 mg PO BID 5 Days #10 tablet 07/29/19 History of Present Illiness History of Present Illness: TRE WARREN is a 43 year old female with a past medical history of chronic hypoxemic respiratory failure on 6 L of home O2, severe pulmonary sarcoidosis, sarcoid liver, and hypertension who presented with increasing shortness of breath. Patient says that she has chronic shortness of breath at her baseline. She reports of worsening shortness of breath in the past 2 days. She says that she gets this when the humidity significantly changes or when it rains heavily. She reports chronic cough but denies any recent increase in sputum production. Denies fever or chills. In the ER, she was noted to be very tachypneic. Work- up was remarkable for increased lactate and leukocytosis. She was given Solu- Medrol and magnesium and breathing treatment and she reported partial relief. She was placed on BiPAP. She expressed she wants to be discharged from the ER but after further discussion, she agreed to be admitted. She denies history of congestive heart failure. She says she was referred by Dr. Campos to Dr. Snow earlier this year to assess for CHF. She reports she had an echo done at his clinic and was told she does not have CHF. Hospital Course Hospital Course: This is a 43-year-old female with end-stage pulmonary sarcoidosis who presented with shortness of breath. She was admitted for sarcoidosis flare-up and possible pneumonitis. She was started on IV steroids and antibiotics. She promptly improved with above treatments overnight. She returned to her baseline and has been comfortable and saturating well on her home O2 requirement. She will be discharged on 5 more days prednisone. She will closely follow-up with her pot tender. Physical Exam Vital Signs: Temp Pulse Resp BP Pulse Ox 97.5 F 100 16 151/89 H 99 07/29/19 07:45 07/29/19 14:23 07/29/19 14:23 07/29/19 07:45 07/29/19 14:23 Intake & Output 07/28/19 07/29/19 07/30/19 06:59 06:59 06:59 Intake Total 2750 880 Balance 2750 880 Weight 243 lb 2.718 oz 248 lb 10.903 oz General appearance: PRESENT: no acute distress, obese Head exam: PRESENT: atraumatic, normocephalic Eye exam: PRESENT: conjunctiva pink, EOMI, PERRLA. ABSENT: scleral icterus Ear exam: PRESENT: normal external ear exam Mouth exam: PRESENT: moist, tongue midline Neck exam: ABSENT: carotid bruit, JVD, lymphadenopathy, thyromegaly Respiratory exam: PRESENT: clear to auscultation lien. ABSENT: rales, rhonchi, wheezes Cardiovascular exam: PRESENT: RRR. ABSENT: diastolic murmur, rubs, systolic murmur Pulses: PRESENT: normal dorsalis pedis pul GI/Abdominal exam: PRESENT: normal bowel sounds, soft. ABSENT: distended, guarding, mass, organolmegaly, rebound, tenderness Rectal exam: PRESENT: deferred Extremities exam: PRESENT: +1 edema Neurological exam: PRESENT: alert, awake, oriented to person, oriented to place, oriented to time, oriented to situation, CN II-XII grossly intact. ABSENT: motor sensory deficit Results Laboratory Results: WBC 18.0 10^3/uL (4.0-10.5) H 07/28/19 06:36 RBC 4.78 10^6/uL (3.72-5.28) 07/28/19 06:36 Hgb 11.5 g/dL (12.0-15.5) L 07/28/19 06:36 Hct 36.5 % (36.0-47.0) 07/28/19 06:36 MCV 76 fl (80-97) L 07/28/19 06:36 MCH 24.1 pg (27.0-33.4) L 07/28/19 06:36 MCHC 31.5 g/dL (32.0-36.0) L 07/28/19 06:36 RDW 16.6 % (11.5-14.0) H 07/28/19 06:36 Plt Count 280 10^3/uL (150-450) 07/28/19 06:36 Lymph % (Auto) 6.9 % (13-45) L 07/28/19 06:36 [place] % (Auto) 5.3 % (3-13) 07/28/19 06:36 Eos % (Auto) 0.1 % (0-6) 07/28/19 06:36 Baso % (Auto) 0.3 % (0-2) 07/28/19 06:36 Absolute Neuts (auto) 15.7 10^3/uL (1.7-8.2) H 07/28/19 06:36 Absolute Lymphs (auto) 1.2 10^3/uL (0.5-4.7) 07/28/19 06:36 Absolute Monos (auto) 0.9 10^3/uL (0.1-1.4) 07/28/19 06:36 Absolute Eos (auto) 0.0 10^3/uL (0.0-0.6) 07/28/19 06:36 Absolute Basos (auto) 0.1 10^3/uL (0.0-0.2) 07/28/19 06:36 Seg Neutrophils % 87.4 % (42-78) H 07/28/19 06:36 PT 13.2 SEC (11.4-15.4) 07/27/19 12:41 INR 1.00 07/27/19 12:41 D-Dimer 0.80 ug/mL (0.00-0.50) H 07/27/19 12:41 VBG pH 7.36 (7.30-7.42) 07/27/19 12:41 VBG pCO2 59.3 mmHg (35-63) 07/27/19 12:41 VBG HCO3 33.1 mmol/L (20-32) H 07/27/19 12:41 VBG Base Excess 6.0 mmol/L 07/27/19 12:41 Sodium 141.4 mmol/L (137-145) 07/28/19 06:36 Potassium 5.0 mmol/L (3.6-5.0) D 07/28/19 06:36 Chloride 100 mmol/L (98-107) 07/28/19 06:36 Carbon Dioxide 29 mmol/L (22-30) 07/28/19 06:36 Anion Gap 12 (5-19) 07/28/19 06:36 BUN 13 mg/dL (7-20) 07/28/19 06:36 Creatinine 0.53 mg/dL (0.52-1.25) 07/28/19 06:36 Est GFR ( Amer) > 60 (>60) 07/28/19 06:36 Est GFR (MDRD) Non-Af > 60 (>60) 07/28/19 06:36 Glucose 285 mg/dL (75-110) H 07/28/19 06:36 POC Glucose 180 mg/dL (70-110) H 07/29/19 11:45 Hemoglobin A1c % 7.7 % (4.7-6.0) H 07/28/19 06:36 Lactic Acid 2.1 mmol/L (0.7-2.1) 07/28/19 06:36 Lactic Acid (Sepsis) 6.1 mmol/L (0.7-2.1) H 07/27/19 20:13 Calcium 10.3 mg/dL (8.4-10.2) H 07/28/19 06:36 Total Bilirubin 0.9 mg/dL (0.2-1.3) 07/27/19 12:41 Direct Bilirubin 0.4 mg/dL (0.0-0.4) 07/27/19 12:41 Neonat Total Bilirubin Not Reportable 07/27/19 12:41 Neonat Direct Bilirubin Not Reportable 07/27/19 12:41 Neonat Indirect Bili Not Reportable 07/27/19 12:41 AST 67 U/L (14-36) H 07/27/19 12:41 ALT 86 U/L (<35) 07/27/19 12:41 Alkaline Phosphatase 265 U/L (38-126) H 07/27/19 12:41 Troponin I < 0.012 ng/mL 07/27/19 12:41 NT-Pro-B Natriuret Pep 53 pg/mL (<125) 07/27/19 12:41 Total Protein 8.0 g/dL (6.3-8.2) 07/27/19 12:41 Albumin 4.3 g/dL (3.5-5.0) 07/27/19 12:41 Influenza A (Rapid) NEGATIVE (NEGATIVE) 07/27/19 12:41 Influenza B (Rapid) NEGATIVE (NEGATIVE) 07/27/19 12:41 07/27/19 12:41 Troponin I < 0.012 NT-Pro-B Natriuret Pep 53 Impressions: Chest X-Ray 07/27/19 12:00 IMPRESSION: Chronic sarcoid. Pulmonary fibrosis. No acute findings. Stroke Is this a Stroke Patient?: No Acute Heart Failure - Is this a Heart Failure Patient?: No
[2019-07-29 16:43] VITALS: BP 146/89
== END 2019-07-29 19:23 | disposition home or self-care (01) ==
LOC: ER 11:46 → EH 17:27 → INTOOBSV 17:27 → 4W 07-28 12:02 → 4N 07-28 16:09
PROVIDERS: ADMIT Internal Medicine; ATTEND Internal Medicine
DX: J96.21 Acute and chronic respiratory failure with hypoxia (principal); D86.0 Sarcoidosis of lung; D86.89 Sarcoidosis of other sites; I10 Essential (primary) hypertension; R74.0 Nonspecific elevation of levels of transaminase and lactic acid dehydrogenase [LDH]; E11.9 Type 2 diabetes mellitus without complications; E66.01 Morbid (severe) obesity due to excess calories; Z99.81 Dependence on supplemental oxygen; R60.9 Edema, unspecified; Z79.52 Long term (current) use of systemic steroids; Z79.899 Other long term (current) drug therapy; Z79.84 Long term (current) use of oral hypoglycemic drugs
CPT/HCPCS: 93005; 94640 ×4; 99291; 96375; 96365; 36415 ×2; 87040; 82962 ×3; 83605 ×2; 85025 ×2; 85610; 80048; 80053; 84484; 83036; 85379; 82803; 87804; 83880; 71045; 93010; 94660; G0378 ×4; J3490 ×4; J1956 ×3; J1815 ×3; J2920 ×3; J2930; J3475; J7030 ×2; J7040; J7620

== ENCOUNTER 2019-10-29 20:10 | Inpatient (IN) | payer MEDICARE, MEDICAID ==
[2019-10-29 20:45] LABS: ABSOLUTE BASOPHILS # (AUTO) 0.1 10^3/uL (0.0-0.2); ABSOLUTE EOSINOPHILS # (AUTO) 0.4 10^3/uL (0.0-0.6); ABSOLUTE LYMPHOCYTES (AUTO) 1.3 10^3/uL (0.5-4.7); ABSOLUTE MONOCYTES (AUTO) 0.9 10^3/uL (0.1-1.4); ABSOLUTE NEUT (AUTO) 10.2 10^3/uL (1.7-8.2); BASOPHILS % (AUTO) 0.5 % (0-2); EOSINOPHILS % (AUTO) 2.9 % (0-6); HEMATOCRIT 37.2 % (36.0-47.0); HEMOGLOBIN 11.7 g/dL (12.0-15.5); LYMPHOCYTES % (AUTO) 9.8 % (13-45); MEAN CORPUSCULAR HEMOGLOBIN 23.7 pg (27.0-33.4); MEAN CORPUSCULAR HGB CONC 31.6 g/dL (32.0-36.0); MEAN CORPUSCULAR VOLUME 75 fl (80-97); MONOCYTES % (AUTO) 7.3 % (3-13); PLATELET COUNT 344 10^3/uL (150-450); RED BLOOD COUNT 4.96 10^6/uL (3.72-5.28); RED CELL DISTRIBUTION WIDTH 16.7 % (11.5-14.0); SEGMENTED NEUTROPHILS % (AUTO) 79.5 % (42-78); TOTAL CELLS COUNTED % (AUTO) 100 %; WHITE BLOOD COUNT 12.9 10^3/uL (4.0-10.5)
--- NOTE | 2019-10-29 20:46 | ER Document Report ---
ED Respiratory Problem - General Chief Complaint: Breathing Difficulty Stated Complaint: TROUBLE BREATHING Time Seen by Provider: 10/29/19 20:38 Mode of Arrival: Medic Information source: Patient Notes: Patient is a 44-year-old female with a history of sarcoidosis and bronchospasm presenting to the emergency department with shortness of breath and difficulty breathing. She usually wears between 6 and 8 L of oxygen at home and states that her shortness of breath has gotten worse over the last 2 days. She states she has a productive cough but it is no different than her usual cough. She denies any fever. Denies any sick contacts. Denies any travel. At the time of my initial evaluation patient is resting comfortably on the BiPAP with oxygen saturations of 92%. TRAVEL OUTSIDE OF THE [place] IN LAST 30 DAYS: No - Related Data Allergies/Adverse Reactions: No Known Allergies Allergy (Verified 07/08/18 00:26) Past Medical History - General Information source: Patient - Social History Smoking Status: Unknown if Ever Smoked Frequency of alcohol use: None Drug Abuse: None Family History: Reviewed & Not Pertinent - Past Medical History Cardiac Medical History: Reports: Hx Congestive Heart Failure Pulmonary Medical History: Reports: Hx Asthma, Hx Bronchitis, Hx COPD Endocrine Medical History: Reports: Hx Diabetes Mellitus Type 2 Renal/ Medical History: Denies: Hx Peritoneal Dialysis Past Surgical History: Reports: Hx Hysterectomy, Hx Thyroid Surgery Review of Systems - Review of Systems Constitutional: denies: Fever Cardiovascular: Dyspnea Respiratory: Cough, Short of breath, Sputum Gastrointestinal: No symptoms reported Genitourinary: No symptoms reported Female Genitourinary: No symptoms reported Musculoskeletal: No symptoms reported Skin: No symptoms reported Hematologic/Lymphatic: No symptoms reported Neurological/Psychological: No symptoms reported Physical Exam - Vital signs Vitals: Resp Pulse Ox 28 H 92 10/29/19 20:13 10/29/19 20:13 - Notes Notes: GENERAL: Alert, interacts well. Moderate respiratory distress, tachypneic. HEAD: Normocephalic, atraumatic. EYES: Pupils equal, round, and reactive to light. Extraocular movements intact. ENT: Oral mucosa moist, tongue midline. NECK: Full range of motion. Supple. Trachea midline. LUNGS: Slight and expiratory wheezes heard in apices. Diminished bilateral bases. HEART: Tachycardic rate and rhythm. No murmur ABDOMEN: Obese soft, non-tender. Non-distended. Bowel sounds present in all 4 quadrants. EXTREMITIES: Moves all 4 extremities spontaneously. No edema, normal radial and dorsalis pedis pulses bilaterally. No cyanosis. BACK: no cervical, thoracic, lumbar midline tenderness. No saddle anesthesia, normal distal neurovascular exam. NEUROLOGICAL: Alert and oriented x3. Normal speech. cranial nerves II through XII grossly intact PSYCH: Normal affect, normal mood. SKIN: Warm, dry, normal turgor. No rashes or lesions noted. Course - Re-evaluation Re-evalutation: Patient resting comfortably on BiPAP. Heart rate currently 104, respiratory rate 24, pulse ox 94%. Will consult for admission. 10/29/19 22:[address] Vale, patients PCP, pt to be admitted to [facility], additional ordered placed, consulting Dr. Guardado. 10/29/19 22:[address] Guardado, bag printer water pollution specialist, currently awaiting callback. - Vital Signs Vital signs: Temp Pulse Resp BP Pulse Ox 98.3 F 29 H 149/89 H 96 10/29/19 20:52 10/29/19 22:00 10/29/19 21:01 10/29/19 22:00 - Laboratory Result Diagrams: 10/29/19 20:20 10/29/19 20:20 Laboratory results interpreted by me: 10/29/19 10/29/19 10/29/19 20:20 20:20 20:48 WBC 12.9 H Hgb 11.7 L MCV 75 L MCH 23.7 L MCHC 31.6 L RDW 16.7 H Lymph % (Auto) 9.8 L Absolute Neuts (auto) 10.2 H Seg Neutrophils % 79.5 H Carbonic Acid ABG pCO2 ABG pO2 ABG HCO3 ABG Total CO2 VBG pCO2 66.7 H* VBG HCO3 35.2 H Chloride 93 L Carbon Dioxide 36 H Creatinine 0.50 L Glucose 259 H AST 59 H ALT 79 H Alkaline Phosphatase 355 H 10/29/19 22:28 WBC Hgb MCV MCH MCHC RDW Lymph % (Auto) Absolute Neuts (auto) Seg Neutrophils % Carbonic Acid 1.76 H ABG pCO2 58.4 H ABG pO2 77.7 L ABG HCO3 33.8 H ABG Total CO2 35.6 H VBG pCO2 VBG HCO3 Chloride Carbon Dioxide Creatinine Glucose AST ALT Alkaline Phosphatase Discharge - Discharge Clinical Impression: Sarcoidosis of lung, Shortness of breath Condition: Fair Disposition: ADMITTED INPATIENT Admitting Provider: Vale Unit Admitted: [facility]NER
[2019-10-29] MEDS ORDERED: KETOROLAC TROMETHAMINE INJ/PF 30 MG/1 ML SDV IV ONE (20:47)
[2019-10-29 20:57] LABS: VENOUS BLOOD BASE EXCESS 7.5 mmol/L; VENOUS BLOOD HCO3 35.2 mmol/L (20-32); VENOUS BLOOD PH 7.34 (7.30-7.42)
[2019-10-29 21:04] LABS: VENOUS BLOOD PCO2 66.7 mmHg (35-63)
[2019-10-29 21:06] LABS: ALKALINE PHOSPHATASE 355 U/L (38-126); ANION GAP 10 (5-19); ASPARTATE AMINO TRANSFERASE 59 U/L (14-36); BILIRUBIN,DIRECT 0.4 mg/dL (0.0-0.4); BILIRUBIN,TOTAL 0.6 mg/dL (0.2-1.3); BLOOD UREA NITROGEN 9 mg/dL (7-20); CALCIUM 9.8 mg/dL (8.4-10.2); CARBON DIOXIDE 36 mmol/L (22-30); CHLORIDE 93 mmol/L (98-107); GLUCOSE 259 mg/dL (75-110); POTASSIUM 4.4 mmol/L (3.6-5.0); TOTAL PROTEIN 8.1 g/dL (6.3-8.2)
--- NOTE | 2019-10-29 21:22 | RADIOLOGY REPORT (SQ) ---
EXAM DESCRIPTION: X-RAY CHEST- One View CLINICAL HISTORY: Shortness of breath COMPARISON: July 27, 2019 TECHNIQUE: Single view of the chest. FINDINGS: There are overlying EKG leads. Diffuse multifocal patchy opacities are similar in appearance to prior exam. The pulmonary vascularity the cardiomediastinal silhouette are stable in appearance. No suspicious lytic or blastic osseous lesions are identified. IMPRESSION: Stable appearance of multifocal patchy opacities. Patient has known chronic sarcoidosis. The possibility of superimposed infectious process is not excluded. Clinical correlation is advised.
[2019-10-29] MEDS ORDERED: METHYLPREDNISOLONE INJ 125 MG/2 ML SDV IV ONE (22:07)
[2019-10-29 22:13] LABS: A TYPE INFLUENZA AG NEGATIVE (NEGATIVE); B INFLUENZA AG NEGATIVE (NEGATIVE)
[2019-10-29] MEDS ORDERED: ACETAMINOPHEN 325 MG TABLET PO PRN (22:15)
[2019-10-29] MEDS ORDERED: GLUCAGON,HUMAN RECOMB 1 MG INJ IM PRN (22:22)
[2019-10-29] MEDS ORDERED: DEXTROSE 50%-WATER 25 GM/50 ML DISP.SYRIN IV PRN ×2 (22:22)
[2019-10-29] MEDS ORDERED: DEXTROSE 40% GEL 15 GM TUBE PO PRN ×2 (22:22)
[2019-10-29 22:55] LABS: ARTERIAL BLOOD BASE EXCESS 7.2 mmol/L; ARTERIAL BLOOD FIO2 40%; ARTERIAL BLOOD H2CO3 1.76 mmol/L (1.05-1.35); ARTERIAL BLOOD HCO3 33.8 mmol/L (20-24); ARTERIAL BLOOD PCO2 58.4 mmHg (35-45); ARTERIAL BLOOD PH 7.38 (7.35-7.45); ARTERIAL BLOOD PO2 77.7 mmHg (80-100); ARTERIAL BLOOD TOTAL CO2 35.6 mmol/L (21-25)
[2019-10-29] MEDS ORDERED: CEFTRIAXONE 1 GM/D5W RTU 1 GM/50 ML RTUPB IV ONE (23:00)
[2019-10-29] MEDS: FAMOTIDINE 20 MG TABLET PO SCH (23:16)
--- NOTE | 2019-10-29 23:38 | RADIOLOGY REPORT (SQ) ---
EXAM DESCRIPTION: CT CHEST ANGIOGRAPHY WITHOUT THEN WITH IV CONTRAST COMPLETED DATE/TME: 10/29/2019 22:08 CLINICAL HISTORY: shortness of breath. Possible history of sarcoidosis based on previous history reported on comparison imaging. COMPARISON: 02/02/2019 TECHNIQUE: CTA of the chest obtained following the uncomplicated intravenous administration of 86 mL Omnipaque 350. 3-D/MIP reformatted images of the chest available for evaluation. FINDINGS: Chest: Pulmonary arteries: Contrast bolus is adequate.No filling defects identified in the pulmonary arteries to suggest pulmonary embolus. Mild enlargement main pulmonary artery. This could be seen with pulmonary arterial hypertension. Thyroid:No abnormalities of the visualized thyroid. Great Vessels:Great vessels have normal anatomic configuration. Thoracic Aorta:No abnormalities of the thoracic aorta identified. Heart:No cardiomegaly, significant pericardial effusion, or coronary artery atherosclerosis Lymph Nodes:No enlarged mediastinal lymph nodes identified. Esophagus:No abnormalities of the esophagus identified. Other:No additional findings. Lungs: Chronic parahilar opacity likely related to fibrotic changes with bronchiectasis. These are stable. Diffuse interlobular septal thickening and groundglass opacities are relatively stable. Mild interval increase in patchy peripheral airspace opacities. Pleura:No pleural effusion or pneumothorax. Trachea/Airways: No acute abnormality of the trachea. Bones:No destructive osseous lesions. Upper Abdomen:Limited images of the upper abdomen demonstrate no definite abnormalities of visualized portions of the gallbladder, pancreas, adrenal glands, or kidneys. Hepatomegaly with nodularity and heterogeneous hypodense nodules throughout the liver. Mild enlargement of the spleen. IMPRESSION: 1. No pulmonary embolus. 2. Mild interval increase in patchy peripheral airspace opacities within the lung superimposed on chronic chronic fibrotic changes which may be related to sarcoidosis. This may indicate progression of chronic lung disease however acute pneumonic process could contribute this appearance. 3. Hepatomegaly with multiple ill-defined hypodense nodules throughout the liver with a nodular contour. These findings are relatively stable and incompletely evaluated on this study and may be related to sarcoidosis. Exclusion of malignancy given masslike quality of the nodules would be recommended if not previously performed. Multi phase hepatic MRI or tissue sampling may be helpful. This exam was performed according to our departmental dose-optimization program, which includes automated exposure control, adjustment of the mA and/or kV according to patient size and/or use of iterative reconstruction technique.
[2019-10-29] MEDS: IPRATROPIUM/ALBUTEROL 0.5-2.5 MG/3 ML AMPUL NEB SCH (23:58)
[2019-10-30 01:42] LABS: APPEARANCE,URINE SLIGHTLY-CLOUDY; BILIRUBIN,URINE NEGATIVE (NEGATIVE); COLOR,URINE YELLOW; GLUCOSE, URINE 50 mg/dL (NEGATIVE); KETONES,URINE NEGATIVE (NEGATIVE); LEUKOCYTE ESTERASE,URINE NEGATIVE (NEGATIVE); NITRITE,URINE NEGATIVE (NEGATIVE); PROTEIN,URINE 30 mg/dL (NEGATIVE); UROBILINOGEN,URINE NEGATIVE mg/dL (<2.0)
[2019-10-30] MEDS: IPRATROPIUM/ALBUTEROL 0.5-2.5 MG/3 ML AMPUL NEB SCH ×5 (04:17→20:17)
[2019-10-30 04:58] LABS: ABSOLUTE BASOPHILS # (AUTO) 0.1 10^3/uL (0.0-0.2); ABSOLUTE LYMPHOCYTES (AUTO) 0.7 10^3/uL (0.5-4.7); ABSOLUTE MONOCYTES (AUTO) 0.2 10^3/uL (0.1-1.4); BASOPHILS % (AUTO) 0.5 % (0-2); EOSINOPHILS % (AUTO) 0.4 % (0-6); HEMATOCRIT 36.3 % (36.0-47.0); HEMOGLOBIN 11.6 g/dL (12.0-15.5); MEAN CORPUSCULAR HGB CONC 32.1 g/dL (32.0-36.0); MEAN CORPUSCULAR VOLUME 75 fl (80-97); MONOCYTES % (AUTO) 1.4 % (3-13); PLATELET COUNT 323 10^3/uL (150-450); RED BLOOD COUNT 4.86 10^6/uL (3.72-5.28); RED CELL DISTRIBUTION WIDTH 16.9 % (11.5-14.0); SEGMENTED NEUTROPHILS % (AUTO) 91.7 % (42-78); TOTAL CELLS COUNTED % (AUTO) 100 %; WHITE BLOOD COUNT 11.9 10^3/uL (4.0-10.5)
[2019-10-30 05:17] LABS: ALBUMIN 4.2 g/dL (3.5-5.0); ALKALINE PHOSPHATASE 411 U/L (38-126); ANION GAP 13 (5-19); ASPARTATE AMINO TRANSFERASE 55 U/L (14-36); BILIRUBIN,DIRECT 0.5 mg/dL (0.0-0.4); BILIRUBIN,TOTAL 0.7 mg/dL (0.2-1.3); BLOOD UREA NITROGEN 12 mg/dL (7-20); CALCIUM 10.2 mg/dL (8.4-10.2); CARBON DIOXIDE 34 mmol/L (22-30); CHLORIDE 92 mmol/L (98-107); GLUCOSE 366 mg/dL (75-110); TOTAL PROTEIN 8.6 g/dL (6.3-8.2)
[2019-10-30 05:25] LABS: POTASSIUM 5.4 mmol/L (3.6-5.0)
--- NOTE | 2019-10-30 05:48 | EKG REPORT ---
SEVERITY:- ABNORMAL ECG - SINUS TACHYCARDIA PROBABLE LEFT ATRIAL ABNORMALITY NONSPECIFIC T ABNORMALITIES, LATERAL LEADS : Confirmed by: Alee Bradley MD 30-Oct-2019 05:46:49
[2019-10-30] MEDS ORDERED: METHYLPREDNISOLONE INJ 40 MG/1 ML SDV IV SCH ×2 (06:00→14:00)
[2019-10-30] MEDS: INSULIN LISPRO 100 UNIT/ML 3 ML VIAL SUBCUT SCH ×4 (09:06→23:24)
[2019-10-30] MEDS: CEFEPIME 1 GM/D5W RTU 1 GM/50 ML RTUPB IV SCH ×2 (09:07→23:28)
[2019-10-30] MEDS: ENOXAPARIN SODIUM INJ 40 MG/0.4 ML DISP.SYRIN SUBCUT SCH (09:07)
[2019-10-30] MEDS: FAMOTIDINE 20 MG TABLET PO SCH ×3 (09:07→23:21)
[2019-10-30] MEDS: METHYLPREDNISOLONE INJ 125 MG/2 ML SDV IV SCH ×2 (16:54→23:22)
[2019-10-30] MEDS: FUROSEMIDE 40 MG TABLET PO SCH (17:34)
[2019-10-31] MEDS: IPRATROPIUM/ALBUTEROL 0.5-2.5 MG/3 ML AMPUL NEB SCH ×5 (00:42→15:36)
[2019-10-31 05:40] LABS: HEMATOCRIT 35.6 % (36.0-47.0); HEMOGLOBIN 11.3 g/dL (12.0-15.5); MEAN CORPUSCULAR HEMOGLOBIN 23.4 pg (27.0-33.4); MEAN CORPUSCULAR HGB CONC 31.7 g/dL (32.0-36.0); MEAN CORPUSCULAR VOLUME 74 fl (80-97); PLATELET COUNT 339 10^3/uL (150-450); RED BLOOD COUNT 4.83 10^6/uL (3.72-5.28); WHITE BLOOD COUNT 21.3 10^3/uL (4.0-10.5)
[2019-10-31 06:05] LABS: ABSOLUTE LYMPHOCYTES# (MANUAL) 1.7 10^3/uL (0.5-4.7); ABSOLUTE MONOCYTES # (MANUAL) 0.4 10^3/uL (0.1-1.4); BASOPHILS % (MANUAL) 0 % (0-2); EOSINOPHILS % (MANUAL) 0 % (0-6); LYMPHOCYTES % (MANUAL) 8 % (13-45); MONOCYTES % (MANUAL) 2 % (3-13); SEGMENTED NEUTROPHILS % (MAN) 90 % (42-78); TOTAL CELLS COUNTED 100
[2019-10-31 06:07] LABS: ANISOCYTOSIS 1+; PLATELET COMMENT ADEQUATE
[2019-10-31 06:08] LABS: TEAR DROP CELLS SLIGHT
[2019-10-31] MEDS: METHYLPREDNISOLONE INJ 125 MG/2 ML SDV IV SCH ×2 (06:26→13:26)
[2019-10-31] MEDS: INSULIN LISPRO 100 UNIT/ML 3 ML VIAL SUBCUT SCH ×3 (08:28→17:50)
[2019-10-31] MEDS: FUROSEMIDE 40 MG TABLET PO SCH ×2 (09:42→17:51)
[2019-10-31] MEDS: CEFEPIME 1 GM/D5W RTU 1 GM/50 ML RTUPB IV SCH (09:43)
[2019-10-31] MEDS: ENOXAPARIN SODIUM INJ 40 MG/0.4 ML DISP.SYRIN SUBCUT SCH (09:49)
[2019-10-31] MEDS: FAMOTIDINE 20 MG TABLET PO SCH (09:49)
[2019-10-31] MEDS ORDERED: AMLODIPINE BESYLATE 5 MG TABLET PO SCH (10:00)
[2019-10-31] MEDS ORDERED: INSULIN LISPRO 100 UNIT/ML 3 ML VIAL SUBCUT ONE (14:30)
[2019-10-31 17:19] VITALS: BP 150/89
--- NOTE | 2019-10-31 21:19 | PDOC H&P ---
History of Present Illness Admission Date/PCP: 10/29/19 22:41 SHELDON WILHELM History of Present Illness: TRE WARREN is a 44 year old female,She has a history of sarcoidosis, she came to the emergency room for evaluation of respiratory symptoms, she complained of shortness of breath, she has chronic respiratory failure on home oxygen, she said her symptoms as gotten worse in the last 2 days, she also complained of cough which is no different than the usual cough. There is no history of fever no history of international travel in the emergency room she was evaluated the breathing was supported with noninvasive positive pressure ventilation, BiPAP. She is chronically on glucocorticoid, prednisone 10 mg p.o. daily for sarcoidosis. She follows with Dr. Vale, her PCP, Dr. Vale is out sick at the moment I am covering his patients in the hospital. CT angiogram of the chest was obtained the emergency room, there was no filling defects in the pulmonary arteries that suggest pulmonary embolus. There is mild enlargement of the main pulmonary artery the great vessels have normal anatomic configuration. There is chronic parahilar opacity likely related to fibrotic changes with bronchiectasisThese are stable also found was diffuse interlobular septal thickening, groundglass opacities also stable, mild interval increase in patchy peripheral airspace opacities no pleural effusion or pneumothorax. Hospital admission was advised for this patient also found was hepatomegaly with multiple ill-defined hypodense nodules throughout the liver with a nodular contour f indings said to be stable.She has severe sarcoidosis she also follow-up with pulmonary Dr. Campos Past Medical History Cardiac Medical History: Reports: Congestive Heart Failure Pulmonary Medical History: Reports: Asthma, Bronchitis, Chronic Obstructive Pulmonary Disease (COPD) Endocrine Medical History: Reports: Diabetes Mellitus Type 2 Hematology: Reports: Anemia Past Surgical History Past Surgical History: Reports: Hysterectomy Social History Smoking Status: Never Smoker Electronic Cigarette use?: No Frequency of Alcohol Use: None Hx Recreational Drug Use: No Drugs: None Hx Prescription Drug Abuse: No Family History Family History: Reviewed & Not Pertinent Parental Family History Reviewed: Yes Children Family History Reviewed: Yes Sibling(s) Family History Reviewed.: Yes Medication/Allergy Home Medications: Amlodipine Besylate [Norvasc 5 mg Tablet] 5 mg PO DAILY 07/27/19 Sitagliptin Phos/Metformin HCl [Janumet 50-1,000 mg Tablet] 1 tab PO BID 07/27/19 Budesonide/Formoterol Fumarate [Symbicort HFA 160-4.5 mcg Inhaler 6 gm] 2 puff IH Q12 10/30/19 Furosemide [Lasix 40 mg Tablet] 40 mg PO BID 10/30/19 Prednisone [Deltasone 20 mg Tablet] 10 mg PO DAILY 10/30/19 Levofloxacin [Levaquin 750 mg Tablet] 750 mg PO DAILY #7 tablet 10/31/19 Prednisone [Deltasone 20 mg Tablet] 20 mg PO DAILY #30 tablet 10/31/19 Allergies/Adverse Reactions: No Known Allergies Allergy (Verified 07/08/18 00:26) Review of Systems Constitutional: ABSENT: chills, fever(s), headache(s), weight gain, weight loss Eyes: ABSENT: visual disturbances Ears: ABSENT: hearing changes Cardiovascular: ABSENT: chest pain, dyspnea on exertion, edema, orthropnea, palpitations Respiratory: PRESENT: cough, dyspnea. ABSENT: hemoptysis Gastrointestinal: ABSENT: abdominal pain, constipation, diarrhea, hematemesis, hematochezia, nausea, vomiting Genitourinary: ABSENT: dysuria, hematuria Musculoskeletal: ABSENT: joint swelling Integumentary: ABSENT: rash, wounds Neurological: ABSENT: abnormal gait, abnormal speech, confusion, dizziness, focal weakness, syncope Psychiatric: ABSENT: anxiety, depression, homidical ideation, suicidal ideation Endocrine: ABSENT: cold intolerance, heat intolerance, menstrual abnormalities, polydipsia, polyuria Hematologic/Lymphatic: ABSENT: easy bleeding, easy bruising, lymphadenopathy Physical Exam Vital Signs: Temp Pulse Resp BP Pulse Ox 97.3 F 108 H 18 152/48 H 93 10/31/19 17:11 10/31/19 17:11 10/31/19 17:11 10/31/19 17:11 10/31/19 17:11 Intake & Output 10/30/19 10/31/19 11/01/19 06:59 06:59 06:59 Intake Total 50 2491 50 Balance 50 2491 50 Weight 109.7 kg 110 kg 110 kg Head exam: PRESENT: atraumatic, normocephalic Eye exam: PRESENT: PERRLA Ear exam: PRESENT: normal external ear exam Mouth exam: PRESENT: moist, tongue midline Neck exam: PRESENT: full ROM Respiratory exam: PRESENT: clear to auscultation lien Cardiovascular exam: PRESENT: RRR, +S1, +S2 Vascular exam: PRESENT: normal capillary refill GI/Abdominal exam: PRESENT: normal bowel sounds, soft Rectal exam: PRESENT: deferred Neurological exam: PRESENT: alert, CN II-XII grossly intact Psychiatric exam: PRESENT: appropriate affect, normal mood Skin exam: PRESENT: dry, intact, warm Results Laboratory Results: 10/31/19 04:37 10/30/19 04:15 10/31/19 04:37 WBC 21.3 H RBC 4.83 Hgb 11.3 L Hct 35.6 L MCV 74 L MCH 23.4 L MCHC 31.7 L RDW 17.0 H Plt Count 339 Seg Neutrophils % Not Reportable 10/29/19 20:20 NT-Pro-B Natriuret Pep 48 Impressions: Chest X-Ray 10/29/19 20:26 IMPRESSION: Stable appearance of multifocal patchy opacities. Patient has known chronic sarcoidosis. The possibility of superimposed infectious process is not excluded. Clinical correlation is advised. Chest/Abdomen CTA 10/29/19 22:08 IMPRESSION: 1. No pulmonary embolus. 2. Mild interval increase in patchy peripheral airspace opacities within the lung superimposed on chronic chronic fibrotic changes which may be related to sarcoidosis. This may indicate progression of chronic lung disease however acute pneumonic process could contribute this appearance. 3. Hepatomegaly with multiple ill-defined hypodense nodules throughout the liver with a nodular contour. These findings are relatively stable and incompletely evaluated on this study and may be related to sarcoidosis. Exclusion of malignancy given masslike quality of the nodules would be recommended if not previously performed. Multi phase hepatic MRI or tissue sampling may be helpful. This exam was performed according to our departmental dose-optimization program, which includes automated exposure control, adjustment of the mA and/or kV according to patient size and/or use of iterative reconstruction technique. Assessment & Plan - Diagnosis (1) Sarcoidosis of lung Is this a current diagnosis for this admission?: Yes (2) Acute on chronic respiratory failure with hypoxia Is this a current diagnosis for this admission?: Yes Plan: Patient on noninvasive positive pressure ventilation BiPAP to support breathing (3) Sarcoidosis Is this a current diagnosis for this admission?: Yes Plan: She has very severe sarcoidosis with multiple organs involvement, there is no evidence of focal consolidation to suggest pneumonia on the CAT scan, as shortness of breath is probably due to progression of the sarcoidosis, presently started on Solu-Medrol 60 mg IV every 6 with antibiotic. (4) T2DM (type 2 diabetes mellitus) Qualifiers: Diabetes mellitus long term care social worker insulin use: with fci use Diabetes mellitus complication status: with neurologic complications Diabetes mellitus complication detail: with polyneuropathy Qualified Code(s): E11.42 - Type 2 diabetes mellitus with diabetic polyneuropathy; Z79.4 - nursing home (current) use of insulin Is this a current diagnosis for this admission?: Yes
--- NOTE | 2019-10-31 21:26 | PDOC DISCHARGE SUMMARY ---
Impression - Admit/DC Date/PCP Admission Date/Primary Care Provider: 10/29/19 22:41 SHELDON WILHELM Discharge Date: 10/31/19 - Discharge Diagnosis (1) Acute on chronic respiratory failure with hypoxia Is this a current diagnosis for this admission?: Yes (2) Sarcoidosis of lung Is this a current diagnosis for this admission?: Yes (3) Sarcoidosis Is this a current diagnosis for this admission?: Yes (4) T2DM (type 2 diabetes mellitus) Is this a current diagnosis for this admission?: Yes - Additional Information Discharge Diet: As Tolerated Discharge Activity: Activity As Tolerated Referrals: BOB CACERES PA [Primary Care Provider] - Follow up as needed Prescriptions: Prednisone [Deltasone 20 mg Tablet] 20 mg PO DAILY #30 tablet Levofloxacin [Levaquin 750 mg Tablet] 750 mg PO DAILY #7 tablet Home Medications: Amlodipine Besylate [Norvasc 5 mg Tablet] 5 mg PO DAILY 07/27/19 Sitagliptin Phos/Metformin HCl [Janumet 50-1,000 mg Tablet] 1 tab PO BID 07/27/19 Budesonide/Formoterol Fumarate [Symbicort HFA 160-4.5 mcg Inhaler 6 gm] 2 puff IH Q12 10/30/19 Furosemide [Lasix 40 mg Tablet] 40 mg PO BID 10/30/19 Prednisone [Deltasone 20 mg Tablet] 10 mg PO DAILY 10/30/19 Levofloxacin [Levaquin 750 mg Tablet] 750 mg PO DAILY #7 tablet 10/31/19 Prednisone [Deltasone 20 mg Tablet] 20 mg PO DAILY #30 tablet 10/31/19 History of Present Illiness History of Present Illness: TRE WARREN is a 44 year old female,She has a history of sarcoidosis, she came to the emergency room for evaluation of respiratory symptoms, she complained of shortness of breath, she has chronic respiratory failure on home oxygen, she said her symptoms as gotten worse in the last 2 days, she also comp lained of cough which is no different than the usual cough. There is no history of fever no history of international travel in the emergency room she was evaluated the breathing was supported with noninvasive positive pressure ventilation, BiPAP. She is chronically on glucocorticoid, prednisone 10 mg p.o. daily for sarcoidosis. She follows with Dr. Vale, her PCP, Dr. Vale is out sick at the moment I am covering his patients in the hospital. CT angiogram of the chest was obtained the emergency room, there was no filling defects in the pulmonary arteries that suggest pulmonary embolus. There is mild enlargement of the main pulmonary artery the great vessels have normal anatomic configuration. There is chronic parahilar opacity likely related to fibrotic changes with bronchiectasisThese are stable also found was diffuse interlobular septal thickening, groundglass opacities also stable, mild interval increase in patchy peripheral airspace opacities no pleural effusion or pneumothorax. Hospital admission was advised for this patient also found was hepatomegaly with multiple ill-defined hypodense nodules throughout the liver with a nodular contour findings said to be stable.She has severe sarcoidosis she also follow-up with pulmonary Dr. Campos Hospital Course Hospital Course: Patient was admitted on 10/29/2019, she was treated with intravenous Solu- Medrol, IV antibiotic empirically the regimen was started by Dr. Vale before he took ill. I saw her today on the floor, she feels better, she wants to go home, she is still on IV Solu-Medrol, she is chronically on prednisone for the sarcoidosis, she told me that she used to be on a high dose of prednisone but she is presently maintained on 10 mg. She is no longer requiring noninvasive positive pressure ventilation with BiPAP, she is probably safe enough for discharge home she promised to follow with her physician including dredge hand Dr. Campos, she be discharged home today on tapered dose prednisone. Physical Exam Vital Signs: Temp Pulse Resp BP Pulse Ox 97.3 F 108 H 18 152/48 H 93 10/31/19 17:11 10/31/19 17:11 10/31/19 17:11 10/31/19 17:11 10/31/19 17:11 Intake & Output 10/30/19 10/31/19 11/01/19 06:59 06:59 06:59 Intake Total 50 2491 50 Balance 50 2491 50 Weight 109.7 kg 110 kg 110 kg General appearance: PRESENT: no acute distress Eye exam: PRESENT: PERRLA Respiratory exam: PRESENT: clear to auscultation lien GI/Abdominal exam: PRESENT: soft Neurological exam: PRESENT: alert, CN II-XII grossly intact Results Laboratory Results: WBC 21.3 10^3/uL (4.0-10.5) H 10/31/19 04:37 RBC 4.83 10^6/uL (3.72-5.28) 10/31/19 04:37 Hgb 11.3 g/dL (12.0-15.5) L 10/31/19 04:37 Hct 35.6 % (36.0-47.0) L 10/31/19 04:37 MCV 74 fl (80-97) L 10/31/19 04:37 MCH 23.4 pg (27.0-33.4) L 10/31/19 04:37 MCHC 31.7 g/dL (32.0-36.0) L 10/31/19 04:37 RDW 17.0 % (11.5-14.0) H 10/31/19 04:37 Plt Count 339 10^3/uL (150-450) 10/31/19 04:37 Lymph % (Auto) Not Reportable 10/31/19 04:37 [place] % (Auto) Not Reportable 10/31/19 04:37 Eos % (Auto) Not Reportable 10/31/19 04:37 Baso % (Auto) Not Reportable 10/31/19 04:37 Absolute Neuts (auto) Not Reportable 10/31/19 04:37 Absolute Lymphs (auto) Not Reportable 10/31/19 04:37 Absolute Monos (auto) Not Reportable 10/31/19 04:37 Absolute Eos (auto) Not Reportable 10/31/19 04:37 Absolute Basos (auto) Not Reportable 10/31/19 04:37 Total Counted 100 10/31/19 04:37 Seg Neutrophils % Not Reportable 10/31/19 04:37 Seg Neuts % (Manual) 90 % (42-78) H 10/31/19 04:37 Lymphocytes % (Manual) 8 % (13-45) L 10/31/19 04:37 Monocytes % (Manual) 2 % (3-13) L 10/31/19 04:37 Eosinophils % (Manual) 0 % (0-6) 10/31/19 04:37 Basophils % (Manual) 0 % (0-2) 10/31/19 04:37 Abs Neuts (Manual) 19.2 10^3/uL (1.7-8.2) H 10/31/19 04:37 Abs Lymphs (Manual) 1.7 10^3/uL (0.5-4.7) 10/31/19 04:37 Abs Monocytes (Manual) 0.4 10^3/uL (0.1-1.4) 10/31/19 04:37 Absolute Eos (Manual) 0.0 10^3/uL (0.0-0.6) 10/31/19 04:37 Abs Basophils (Manual) 0.0 10^3/uL (0.0-0.2) 10/31/19 04:37 Platelet Comment ADEQUATE 10/31/19 04:37 Anisocytosis 1+ 10/31/19 04:37 Microcytosis 1+ 10/31/19 04:37 Tear Drop Cells SLIGHT 10/31/19 04:37 Carbonic Acid 1.76 mmol/L (1.05-1.35) H 10/29/19 22:28 HCO3/H2CO3 Ratio 19:1 10/29/19 22:28 ABG pH 7.38 (7.35-7.45) 10/29/19 22:28 ABG pCO2 58.4 mmHg (35-45) H 10/29/19 22:28 ABG pO2 77.7 mmHg (80-100) L 10/29/19 22:28 ABG HCO3 33.8 mmol/L (20-24) H 10/29/19 22:28 ABG Total CO2 35.6 mmol/L (21-25) H 10/29/19 22:28 ABG O2 Saturation 95.0 % (94-98) 10/29/19 22:28 ABG Base Excess 7.2 mmol/L 10/29/19 22:28 VBG pH 7.34 (7.30-7.42) 10/29/19 20:48 VBG pCO2 66.7 mmHg (35-63) H* 10/29/19 20:48 VBG HCO3 35.2 mmol/L (20-32) H 10/29/19 20:48 VBG Base Excess 7.5 mmol/L 10/29/19 20:48 FiO2 40% 10/29/19 22:28 Sodium 138.8 mmol/L (137-145) 10/30/19 04:15 Potassium 5.4 mmol/L (3.6-5.0) H D 10/30/19 04:15 Chloride 92 mmol/L (98-107) L 10/30/19 04:15 Carbon Dioxide 34 mmol/L (22-30) H 10/30/19 04:15 Anion Gap 13 (5-19) 10/30/19 04:15 BUN 12 mg/dL (7-20) 10/30/19 04:15 Creatinine 0.56 mg/dL (0.52-1.25) 10/30/19 04:15 Est GFR ( Amer) > 60 (>60) 10/30/19 04:15 Est GFR (MDRD) Non-Af > 60 (>60) 10/30/19 04:15 Glucose 366 mg/dL (75-110) H 10/30/19 04:15 POC Glucose 387 mg/dL (70-110) H 10/31/19 16:58 Calcium 10.2 mg/dL (8.4-10.2) 10/30/19 04:15 Total Bilirubin 0.7 mg/dL (0.2-1.3) 10/30/19 04:15 Direct Bilirubin 0.5 mg/dL (0.0-0.4) H 10/30/19 04:15 Neonat Total Bilirubin Not Reportable 10/30/19 04:15 Neonat Direct Bilirubin Not Reportable 10/30/19 04:15 Neonat Indirect Bili Not Reportable 10/30/19 04:15 AST 55 U/L (14-36) H 10/30/19 04:15 ALT 82 U/L (<35) H 10/30/19 04:15 Alkaline Phosphatase 411 U/L (38-126) H 10/30/19 04:15 NT-Pro-B Natriuret Pep 48 pg/mL (<125) 10/29/19 20:20 Total Protein 8.6 g/dL (6.3-8.2) H 10/30/19 04:15 Albumin 4.2 g/dL (3.5-5.0) 10/30/19 04:15 Urine Color YELLOW 10/30/19 01:20 Urine Appearance SLIGHTLY-CLOUDY 10/30/19 01:20 Urine pH 6.0 (5.0-9.0) 10/30/19 01:20 Ur Specific [place] 1.040 10/30/19 01:20 Urine Protein 30 mg/dL (NEGATIVE) H 10/30/19 01:20 Urine Glucose (UA) 50 mg/dL (NEGATIVE) H 10/30/19 01:20 Urine Ketones NEGATIVE mg/dL (NEGATIVE) 10/30/19 01:20 Urine Blood NEGATIVE (NEGATIVE) 10/30/19 01:20 Urine Nitrite NEGATIVE (NEGATIVE) 10/30/19 01:20 Urine Bilirubin NEGATIVE (NEGATIVE) 10/30/19 01:20 Urine Urobilinogen NEGATIVE mg/dL (<2.0) 10/30/19 01:20 Ur Leukocyte Esterase NEGATIVE (NEGATIVE) 10/30/19 01:20 Urine WBC (Auto) 1 /HPF 10/30/19 01:20 Urine RBC (Auto) 1 /HPF 10/30/19 01:20 Squamous Epi Cells Auto 14 /HPF 10/30/19 01:20 Urine Mucus (Auto) RARE /LPF 10/30/19 01:20 Urine Ascorbic Acid NEGATIVE (NEGATIVE) 10/30/19 01:20 Influenza A (Rapid) NEGATIVE (NEGATIVE) 10/29/19 21:54 Influenza B (Rapid) NEGATIVE (NEGATIVE) 10/29/19 21:54 10/29/19 20:20 NT-Pro-B Natriuret Pep 48 Impressions: Chest X-Ray 10/29/19 20:26 IMPRESSION: Stable appearance of multifocal patchy opacities. Patient has known chronic sarcoidosis. The possibility of superimposed infectious process is not excluded. Clinical correlation is advised. Chest/Abdomen CTA 10/29/19 22:08 IMPRESSION: 1. No pulmonary embolus. 2. Mild interval increase in patchy peripheral airspace opacities within the lung superimposed on chronic chronic fibrotic changes which may be related to sarcoidosis. This may indicate progression of chronic lung disease however acute pneumonic process could contribute this appearance. 3. Hepatomegaly with multiple ill-defined hypodense nodules throughout the liver with a nodular contour. These findings are relatively stable and incompletely evaluated on this study and may be related to sarcoidosis. Exclusion of malignancy given masslike quality of the nodules would be recommended if not previously performed. Multi phase hepatic MRI or tissue sampling may be helpful. This exam was performed according to our departmental dose-optimization program, which includes automated exposure control, adjustment of the mA and/or kV according to patient size and/or use of iterative reconstruction technique. Stroke Is this a Stroke Patient?: No Acute Heart Failure - Is this a Heart Failure Patient?: No
== END 2019-10-31 18:21 | disposition home health service (06) | DRG 189 ==
LOC: ER 20:10 → EH 22:41 → 3W 23:51
PROVIDERS: ADMIT Family Medicine; ATTEND Family Medicine
PROC: 5A09457 Assistance with Respiratory Ventilation, 24-96 Consecutive Hours, Continuous Positive Airway Pressure (ICD-10-PCS; principal; 2019-10-29)
DX: J96.21 Acute and chronic respiratory failure with hypoxia (principal); J44.9 Chronic obstructive pulmonary disease, unspecified; D64.9 Anemia, unspecified; D86.89 Sarcoidosis of other sites; E11.42 Type 2 diabetes mellitus with diabetic polyneuropathy; Z99.81 Dependence on supplemental oxygen; Z79.899 Other long term (current) drug therapy; Z79.4 Long term (current) use of insulin
CPT/HCPCS: 36415; 71045; 71275; 80053; 81001; 82803; 82962; 83880; 85025; 87040; 87804; 93005; 93010; 94640; 94660; 96374; 96375; 99285; J0692; J0696; J1815; J1885; J2920; J2930; J7620

== ENCOUNTER 2020-02-24 18:24 | Emergency (ER) | payer MEDICARE, MEDICAID ==
[2020-02-24 19:10] LABS: ABSOLUTE BASOPHILS # (AUTO) 0.1 10^3/uL (0.0-0.2); ABSOLUTE EOSINOPHILS # (AUTO) 0.4 10^3/uL (0.0-0.6); ABSOLUTE LYMPHOCYTES (AUTO) 1.4 10^3/uL (0.5-4.7); ABSOLUTE MONOCYTES (AUTO) 1.1 10^3/uL (0.1-1.4); ABSOLUTE NEUT (AUTO) 10.1 10^3/uL (1.7-8.2); BASOPHILS % (AUTO) 0.9 % (0-2); EOSINOPHILS % (AUTO) 2.8 % (0-6); HEMATOCRIT 35.2 % (36.0-47.0); HEMOGLOBIN 11.2 g/dL (12.0-15.5); LYMPHOCYTES % (AUTO) 10.9 % (13-45); MEAN CORPUSCULAR HEMOGLOBIN 23.9 pg (27.0-33.4); MEAN CORPUSCULAR HGB CONC 31.8 g/dL (32.0-36.0); MEAN CORPUSCULAR VOLUME 75 fl (80-97); MONOCYTES % (AUTO) 8.1 % (3-13); PLATELET COUNT 277 10^3/uL (150-450); RED BLOOD COUNT 4.68 10^6/uL (3.72-5.28); RED CELL DISTRIBUTION WIDTH 17.9 % (11.5-14.0); SEGMENTED NEUTROPHILS % (AUTO) 77.3 % (42-78); TOTAL CELLS COUNTED % (AUTO) 100 %; WHITE BLOOD COUNT 13.1 10^3/uL (4.0-10.5)
--- NOTE | 2020-02-24 19:26 | RADIOLOGY REPORT (SQ) ---
EXAM DESCRIPTION: CHEST SINGLE VIEW IMAGES COMPLETED DATE/TIME: 02/24/2020 7:14 pm REASON FOR STUDY: Shortness of breath COMPARISON: Chest x-ray 10/29/2019, 07/27/2019. EXAM PARAMETERS: NUMBER OF VIEWS: One view. TECHNIQUE: Single frontal radiographic view of the chest acquired. RADIATION DOSE: NA LIMITATIONS: None. FINDINGS: LUNGS AND PLEURA: There is bilateral diffuse interstitial thickening with patchy bilateral airspace opacities. No consolidation, sizeable pleural effusion or pneumothorax. MEDIASTINUM AND HILAR STRUCTURES: No masses. Contour normal. HEART AND VASCULAR STRUCTURES: Stable. BONES: Multilevel degenerative changes at the spine. HARDWARE: None in the chest. IMPRESSION: Diffuse bilateral interstitial thickening with patchy bilateral airspace opacity, may be secondary to chronic changes of sarcoidosis, superimposed pneumonia or interstitial edema cannot be excluded. TECHNICAL DOCUMENTATION: JOB ID: [id number] 2010 [employer]- All Rights Reserved Reading location - IP/workstation name: [email or web address]
[2020-02-24 19:30] LABS: ALBUMIN 3.9 g/dL (3.5-5.0); ALKALINE PHOSPHATASE 280 U/L (38-126); ASPARTATE AMINO TRANSFERASE 74 U/L (14-36); BILIRUBIN,TOTAL 0.5 mg/dL (0.2-1.3); BLOOD UREA NITROGEN 8 mg/dL (7-20); CALCIUM 9.2 mg/dL (8.4-10.2); CARBON DIOXIDE 36 mmol/L (22-30); CHLORIDE 99 mmol/L (98-107); GLUCOSE 137 mg/dL (75-110); POTASSIUM 4.2 mmol/L (3.6-5.0); TOTAL PROTEIN 7.5 g/dL (6.3-8.2)
[2020-02-24 19:44] LABS: ANION GAP 4 (5-19)
--- NOTE | 2020-02-24 20:23 | ER Document Report ---
ED General - General Chief Complaint: Shortness Of Breath Stated Complaint: RESPIRATORY DISTRESS Time Seen by Provider: 02/24/20 18:48 Primary Care Provider: BOB CACERES PA [Primary Care Provider] - Follow up as needed TRAVEL OUTSIDE OF THE [place] IN LAST 30 DAYS: No - HPI Notes: Patient is a 44-year-old female with a history of sarcoidosis, chronically on oxygen at 6 to 8 L per nasal cannula, who presents to the emergency department for evaluation of increased shortness of breath. She states this is been going on for the last 2 days. She denies any chest pain. She states she has a chronic cough which is no different. She denies any fevers or chills. No nausea or vomiting. She is eating and drinking normally. She states normally she gets a prescription for doxycycline, which helps her significantly during these increases in her shortness of breath. She is still taking her prednisone. Patient also states that she fell 2 days ago, twisting her left foot and ankle. She states it still hurts to bear weight. She did not hit her head or lose consciousness. She denies any neck or back pain from this fall. - Related Data Allergies/Adverse Reactions: No Known Allergies Allergy (Verified 07/08/18 00:26) Home Medications: Prednisone, Janumet, Amlodipine Besylate, Furosemide Past Medical History - General Information source: Patient - Social History Smoking Status: Never Smoker Frequency of alcohol use: Occasional Drug Abuse: None Family History: Reviewed & Not Pertinent - Medical History Medical History: Other - Sarcoidosis, on chronic prednisone therapy - Past Medical History Cardiac Medical History: Reports: Hx Congestive Heart Failure Pulmonary Medical History: Reports: Hx Asthma, Hx Bronchitis, Hx COPD Endocrine Medical History: Reports: Hx Diabetes Mellitus Type 2 Renal/ Medical History: Denies: Hx Peritoneal Dialysis Past Surgical History: Reports: Hx Gynecologic Surgery - fibroids, Hx Hysterectomy, Hx Thyroid Surgery Review of Systems - Review of Systems Respiratory: See HPI Musculoskeletal: See HPI -: Yes All other systems reviewed and negative Physical Exam - Vital signs Vitals: Pulse Ox 100 02/24/20 18:33 - Notes Notes: This is an obese 44-year-old female who appears her stated age, in no acute distress. She is sitting upright in the bed, oxygenation of 100% on 8 L. Normal respiratory rate, no increased work of breathing. Vital signs reviewed, please refer to chart. Head is normocephalic, atraumatic. Pupils equal round, reactive to light. Neck is supple without meningismus. Heart is regular rate and rhythm. Lungs revealed mildly diminished breath sounds in the bases, but no wheezes, rales, rhonchi. Abdomen is soft, nontender, normoactive bowel sounds throughout. Extremities without cyanosis, clubbing. Posterior calves are nontender. Peripheral pulses are equal. Skin is warm and dry. Patient is awake, alert, neurological exam is nonfocal. Course - Re-evaluation Re-evalutation: 02/24/20 22:45 Patient presents to the emergency department for evaluation. She is had a mild increase in shortness of breath. She has had no fevers. She has had no cough worse than normal. She states that when she feels this way doxycycline helps her feel better. Her laboratory investigations revealed a mild leukocytosis, but again she is on chronic prednisone therapy. Her chest x-ray showed chronic changes versus infiltrative process. The Arelis's heart rate is elevated, but she states this is not out of the ordinary for her. The patient is already undergone multiple CTAs in the past. She has some very mild CO2 retention, but again this is not remarkable for her. She really does not want to stay in the hospital. She states that she understands that there could be an underlying more significant process going on. I did order blood cultures. She states that she would much prefer to go home, does not want an increase in her steroids over the short-term, and would like to just try the doxycycline. She is given a dose of doxycycline here. I cannot rule out a talar fracture on her x-ray, so she is placed in a splint. Neurovascular status checked following placement. She is given crutches and referral on to Ortho. She is to return to the ED with worsening or new concerning symptoms of any sort. 02/24/20 23:11 Recheck after splint placement yields lower extremity with neurovascular status intact. - Vital Signs Vital signs: Temp Pulse Resp BP Pulse Ox 99.3 F 108 H 33 H 155/98 H 95 02/24/20 18:35 02/24/20 18:35 02/24/20 22:01 02/24/20 22:01 02/24/20 22:01 - Laboratory Result Diagrams: 02/24/20 18:59 02/24/20 18:59 Laboratory results interpreted by me: 02/24/20 02/24/20 02/24/20 18:59 18:59 19:54 WBC 13.1 H Hgb 11.2 L Hct 35.2 L MCV 75 L MCH 23.9 L MCHC 31.8 L RDW 17.9 H Lymph % (Auto) 10.9 L Absolute Neuts (auto) 10.1 H VBG pCO2 VBG HCO3 Carbon Dioxide 36 H Anion Gap 4 L Glucose 137 H AST 74 H ALT 100 H Alkaline Phosphatase 280 H Ur Leukocyte Esterase TRACE H 02/24/20 21:05 WBC Hgb Hct MCV MCH MCHC RDW Lymph % (Auto) Absolute Neuts (auto) VBG pCO2 65.5 H* VBG HCO3 34.5 H Carbon Dioxide Anion Gap Glucose AST ALT Alkaline Phosphatase Ur Leukocyte Esterase - Diagnostic Test Radiology reviewed: Image reviewed, Reports reviewed Radiology results interpreted by me: 02/24/20 22:45 Chest X-Ray 02/24/20 18:43 IMPRESSION: Diffuse bilateral interstitial thickening with patchy bilateral airspace opacity, may be secondary to chronic changes of sarcoidosis, superimposed pneumonia or interstitial edema cannot be excluded. Ankle X-Ray 02/24/20 20:15 IMPRESSION: Questionable fracture involving the lateral talar process. Additional cortical step-off about the inferior aspect of the talus on the lateral projection could be artifactual or related to an additional subtle fracture deformity. No additional osseous anomalies. copyright 2010 [employer]- All Rights Reserved Foot X-Ray 02/24/20 20:15 IMPRESSION: No evidence of acute displaced fracture of the foot. Ankle dictated separately - EKG Interpretation by Me Additional EKG results interpreted by me: 02/24/20 22:48 Sinus tachycardia with a rate of 109 bpm. Normal axis and intervals. Nonspecific ST changes, but no acute changes concerning for ischemia or infarction. Discharge - Discharge Clinical Impression: Sarcoidosis, Shortness of breath, Fracture of left talus Condition: Stable Disposition: HOME, SELF-CARE Instructions: Dyspnea, Nonspecific ([facility]), Fracture ([facility]), Splint Precautions ([facility]), Temporary Splint ([facility]) Additional Instructions: As discussed, your findings could be consistent with a pneumonia. You state you do not feel like you have pneumonia, and would prefer to go home with doxycycline. You have been given your first dose here, it is important that you fill your prescription tomorrow and take it as directed. Please follow-up closely with your primary care doctor as well as pulmonology on Wednesday. Otherwise, there is concern for possible fracture in your ankle. Follow-up with our on-call orthopedist, or the orthopedic doctor of your choice. Crutches without weightbearing until evaluated. Return to the emergency department with worsening or new concerning symptoms of any sort. Prescriptions: Doxycycline Hyclate [Vibramycin 100 mg Tablet] 100 mg PO BID #19 tablet Referrals: BOB CACERES PA [Primary Care Provider] - Follow up as needed RAQUEL ALLRED MD [ACTIVE PROVISIONAL STAFF] - Follow up as needed
[2020-02-24 20:35] LABS: INTERNATIONAL RATION (INR) 0.97; PROTHROMBIN TIME 12.8 SEC (11.4-15.4)
[2020-02-24 20:42] LABS: APPEARANCE,URINE CLEAR; BILIRUBIN,URINE NEGATIVE (NEGATIVE); COLOR,URINE YELLOW; GLUCOSE, URINE NEGATIVE (NEGATIVE); KETONES,URINE NEGATIVE (NEGATIVE); LEUKOCYTE ESTERASE,URINE TRACE (NEGATIVE); NITRITE,URINE NEGATIVE (NEGATIVE); PROTEIN,URINE NEGATIVE (NEGATIVE); URINE SPECIFIC GRAVITY 1.006; UROBILINOGEN,URINE NEGATIVE mg/dL (<2.0)
[2020-02-24 21:27] LABS: VENOUS BLOOD BASE EXCESS 6.7 mmol/L; VENOUS BLOOD HCO3 34.5 mmol/L (20-32); VENOUS BLOOD PH 7.34 (7.30-7.42)
[2020-02-24 21:36] LABS: VENOUS BLOOD PCO2 65.5 mmHg (35-63)
--- NOTE | 2020-02-24 21:45 | RADIOLOGY REPORT (SQ) ---
EXAM DESCRIPTION: XR ANKLE 3 OR MORE VIEWS COMPLETED DATE/TME: 02/24/2020 20:15 CLINICAL HISTORY: 44 years, Female, pain, injury COMPARISON: None. NUMBER OF VIEWS: 3 TECHNIQUE: Frontal, oblique, and lateral radiograph are obtained. LIMITATIONS: None FINDINGS: Small posterior and plantar calcaneal spurs are evident. There is focal irregularity involving the lateral talar process, best visualized on the frontal projection. There may be a second focus of cortical irregularity about the undersurface of the talus on the lateral projection which could indicate an additional subtle nondisplaced fracture. Otherwise, remaining visualized osseous structures appear normal without acute fracture or dislocation. IMPRESSION: Questionable fracture involving the lateral talar process. Additional cortical step-off about the inferior aspect of the talus on the lateral projection could be artifactual or related to an additional subtle fracture deformity. No additional osseous anomalies. copyright 2010 [id number]- All Rights Reserved
--- NOTE | 2020-02-24 21:48 | RADIOLOGY REPORT (SQ) ---
CLINICAL INDICATION: injury. Pain. TECHNIQUE: 3 view(s) were obtained of the left foot. COMPARISON: None. FINDINGS: No acute displaced fracture is identified of the foot. Alignment appears anatomic. Joint spaces are within normal limits for age. Soft tissue swelling. Anterior and posterior calcaneal spurring. IMPRESSION: No evidence of acute displaced fracture of the foot. Ankle dictated separately
[2020-02-24] MEDS ORDERED: DOXYCYCLINE HYCLATE 100 MG TABLET PO ONE (22:47)
[2020-02-24 23:29] VITALS: BP 170/116
--- NOTE | 2020-02-25 08:41 | EKG REPORT ---
SEVERITY:- BORDERLINE ECG - SINUS TACHYCARDIA BORDERLINE T ABNORMALITIES, ANT-LAT LEADS : Confirmed by: Bam Alcantar MD 25-Feb-2020 08:40:33
== END 2020-02-25 00:06 | disposition home or self-care (01) ==
LOC: ER 18:24
DX: D86.9 Sarcoidosis, unspecified (principal); Z99.81 Dependence on supplemental oxygen; S92.102A Unspecified fracture of left talus, initial encounter for closed fracture; W19.XXXA Unspecified fall, initial encounter; I50.9 Heart failure, unspecified; J44.9 Chronic obstructive pulmonary disease, unspecified; R06.02 Shortness of breath; R05 Cough; R00.0 Tachycardia, unspecified; E11.9 Type 2 diabetes mellitus without complications; Z79.84 Long term (current) use of oral hypoglycemic drugs; Z79.52 Long term (current) use of systemic steroids; Z79.899 Other long term (current) drug therapy
CPT/HCPCS: 93005; 99285; 36415; 87040; 83605; 85025; 85610; 80053; 81001; 82803; 73610; 71045; 73630; 93010; 29515; A9270

== ENCOUNTER 2020-04-03 21:52 | Emergency (ER) | payer MEDICARE, MEDICAID ==
[2020-04-03] MEDS ORDERED: MAGNESIUM SULFATE/D5W 1 GM/100 ML RTUPB IV ONE (22:15)
[2020-04-03] MEDS ORDERED: NORMAL SALINE 1000 ML 1,000 ML IV ONE (22:15)
[2020-04-03] MEDS ORDERED: IPRATROPIUM/ALBUTEROL 0.5-2.5 MG/3 ML AMPUL NEB ONE (22:15)
--- NOTE | 2020-04-03 22:19 | ER Document Report ---
ED Respiratory Problem - General Chief Complaint: Shortness Of Breath Stated Complaint: COUGH,SHORTNESS OF BREATH Time Seen by Provider: 04/03/20 22:05 Primary Care Provider: FANI CEDENO MD [ACTIVE STAFF] - 04/05/20 Notes: Patient is a 44-year-old female with a history of asthma and sarcoidosis that comes emergency department for chief complaint of difficulty breathing. She comes by EMS, she was found to have an initial oxygen saturation of 87% on 10 L nasal cannula. Patient was extremely tight and wheezing per EMS, she received 2 duo nebs in route and is significantly improved after this. Patient reports developing coughing over the past day or so, denies fever, chest pain. Patient does states she threw up earlier today. She denies abdominal pain. Patient was given 125 mg of Solu-Medrol, she takes 10 mg of prednisone daily prophylaxis. Patient denies recent travel or illness, denies recent exposure. She follows with bulb inspector Dr. Colvin and primary care Dr. Cedeno. Patient states she usually wears oxygen by nasal cannula at 5 to 8 L and increased it slightly when she was short of breath. TRAVEL OUTSIDE OF THE [place] IN LAST 30 DAYS: No - Related Data Allergies/Adverse Reactions: No Known Allergies Allergy (Verified 07/08/18 00:26) Past Medical History - General Information source: Patient - Social History Smoking Status: Never Smoker Frequency of alcohol use: None Drug Abuse: None Lives with: Family Family History: Reviewed & Not Pertinent - Past Medical History Cardiac Medical History: Reports: Hx Congestive Heart Failure Pulmonary Medical History: Reports: Hx Asthma, Hx Bronchitis, Other - Pulmonary sarcoidosis Endocrine Medical History: Reports: Hx Diabetes Mellitus Type 2 Renal/ Medical History: Denies: Hx Peritoneal Dialysis Past Surgical History: Reports: Hx Gynecologic Surgery - fibroids, Hx Hysterectomy, Hx Thyroid Surgery Review of Systems - Review of Systems Constitutional: No symptoms reported EENT: No symptoms reported Cardiovascular: No symptoms reported Respiratory: See HPI Gastrointestinal: No symptoms reported Genitourinary: No symptoms reported Female Genitourinary: No symptoms reported Musculoskeletal: No symptoms reported Skin: No symptoms reported Hematologic/Lymphatic: No symptoms reported Neurological/Psychological: No symptoms reported Physical Exam - Vital signs Vitals: Resp BP Pulse Ox 33 H 137/86 H 98 04/03/20 21:55 04/03/20 21:55 04/03/20 21:55 - Notes Notes: GENERAL: Alert, interacts well. No acute distress. HEAD: Normocephalic, atraumatic. EYES: Pupils equal, round, and reactive to light. Extraocular movements intact. ENT: Oral mucosa moist, tongue midline. Oropharynx unremarkable. Airway patent. NECK: Full range of motion. Supple. Trachea midline. No lymphadenopathy. LUNGS: Scattered expiratory wheezes and scattered coarse breath sounds bilaterally. Speaks in full sentences, no labored breathing. Questionable borderline tachypnea which could be baseline. HEART: Regular rate and rhythm. No murmur ABDOMEN: Soft, non-tender. Non-distended. EXTREMITIES: Moves all 4 extremities spontaneously. No edema, normal radial and dorsalis pedis pulses bilaterally. No cyanosis. BACK: no cervical, thoracic, lumbar midline tenderness. No saddle anesthesia, normal distal neurovascular exam. Moves all extremities in full range of motion. NEUROLOGICAL: Alert and oriented x3. Normal speech. Cranial nerves II through XII grossly intact. Strength 5/5 in all extremities. PSYCH: Normal affect, normal mood. SKIN: Chronic skin changes around the eyelids bilaterally with nodular appearance. Course - Re-evaluation Re-evalutation: Patient with some faint expiratory wheezes on my evaluation, she speaks in full sentences, does not have labored breathing or respiratory distress. She is significantly improved compared to prior per EMS report. Patient states she is very familiar with this kind of exacerbation and she already feels much better and is hoping to go home. CBC shows elevated white blood cells with elevation of neutrophils but no bandemia. Nonspecific given patient's steroid use. Chemistry shows mild hyperglycemia without acidosis. Troponins not elevated, BNP is not elevated. Chest x-ray shows possible right sided developing pneumonia, chronic changes, possible mild vascular congestion, I not hear rales on exam, patient does not have CHF history or lower extremity edema, I suspect this is chronic and the possible developing pneumonia with asthma exacerbation. I reevaluated patient after IV fluids, magnesium, DuoNeb's. Patient has no current complaints. Patient states she feels baseline and she is asking to go home. Because of her history, initial poor presentation, sarcoidosis history, and suspected pneumonia I recommended I discussed with her provider for hospitalization. I especially recommended this because when patient ambulated to the bathroom she desaturated down to 85% and became mildly tachycardic. However patient states that her average oxygen saturation on multiple liters nasal cannula is only around 90 to 93% and this is still normal for her, she states she feels back to her baseline. Her blood gas is reassuring with no hypercarbia or acidosis. Patient continues to insist that she feels her baseline, she requests to be treated with doxycycline, discharge, and she states she will return if she worsens. Patient refuses COVID-19 testing. She also adds that she has BiPAP at home and she needs it. Patient does appear very experience with this, she is very well-appearing and talkative on exam without signs of distress, patient discharged with rapid prednisone taper, antibiotics, she already has plenty of DuoNeb's reportedly. Patient states appreciation and agreement with plan. - Vital Signs Vital signs: Temp Pulse Resp BP Pulse Ox 98.3 F 108 H 23 H 139/96 H 93 04/03/20 22:06 04/03/20 22:06 04/04/20 00:21 04/04/20 00:21 04/04/20 00:39 - Laboratory Result Diagrams: 04/03/20 23:20 04/03/20 23:20 Laboratory results interpreted by me: 04/03/20 04/03/20 23:20 23:20 WBC 15.9 H Hgb 11.9 L MCV 74 L MCH 23.2 L MCHC 31.3 L RDW 18.6 H Lymph % (Auto) 5.9 L Preston % (Auto) 2.2 L Absolute Neuts (auto) 14.3 H Seg Neutrophils % 89.9 H Carbon Dioxide 34 H Creatinine 0.51 L Glucose 201 H AST 67 H ALT 87 H Alkaline Phosphatase 359 H - EKG Interpretation by Me Additional EKG results interpreted by me: EKG shows sinus tachycardia at a rate of 107, normal axis, QTC of 470, no T wave inversions or systemic changes in consecutive leads. Discharge - Discharge Clinical Impression: Difficulty breathing, Wheezing, Cough Condition: Stable Disposition: HOME, SELF-CARE Additional Instructions: Your x-ray suggests early developing pneumonia. Take your antibiotics and prednisone as prescribed, continue your current medications and treatments. You have declined admission tonight, please follow-up closely with your primary provider for recheck, return if you worsen in any way including spiking fever, difficulty breathing, or any other concerning or worsening symptoms. Prescriptions: Prednisone [Deltasone 10 mg Tablet] 10 mg PO ASDIR PRN #21 tablet PRN Reason: Doxycycline Hyclate [Vibramycin 100 mg Tablet] 100 mg PO BID 10 Days #20 tablet Referrals: FANI CEDENO MD [ACTIVE STAFF] - 04/05/20
--- NOTE | 2020-04-03 23:00 | RADIOLOGY REPORT (SQ) ---
EXAM DESCRIPTION: XR CHEST 1 VIEW COMPLETED DATE/TME: 04/03/2020 22:14 CLINICAL HISTORY: 44 years, Female, shortness of breath, hypoxia COMPARISON: None. NUMBER OF VIEWS: TECHNIQUE: LIMITATIONS: None. FINDINGS: There is patchy atelectasis/infiltrate at the right lung base, raising the possibility of pneumonia. The heart is top normal to mildly enlarged. There is possible mild pulmonary vascular congestion. IMPRESSION: Possible right basilar pneumonia. Top normal to mildly enlarged heart, with possible mild pulmonary vascular congestion. copyright 2010 [employer]- All Rights Reserved
[2020-04-03 23:47] LABS: ABSOLUTE EOSINOPHILS # (AUTO) 0.3 10^3/uL (0.0-0.6); ABSOLUTE LYMPHOCYTES (AUTO) 0.9 10^3/uL (0.5-4.7); ABSOLUTE MONOCYTES (AUTO) 0.3 10^3/uL (0.1-1.4); ABSOLUTE NEUT (AUTO) 14.3 10^3/uL (1.7-8.2); BASOPHILS % (AUTO) 0.2 % (0-2); EOSINOPHILS % (AUTO) 1.8 % (0-6); HEMATOCRIT 37.9 % (36.0-47.0); HEMOGLOBIN 11.9 g/dL (12.0-15.5); LYMPHOCYTES % (AUTO) 5.9 % (13-45); MEAN CORPUSCULAR HEMOGLOBIN 23.2 pg (27.0-33.4); MEAN CORPUSCULAR HGB CONC 31.3 g/dL (32.0-36.0); MEAN CORPUSCULAR VOLUME 74 fl (80-97); MONOCYTES % (AUTO) 2.2 % (3-13); PLATELET COUNT 327 10^3/uL (150-450); RED BLOOD COUNT 5.12 10^6/uL (3.72-5.28); RED CELL DISTRIBUTION WIDTH 18.6 % (11.5-14.0); SEGMENTED NEUTROPHILS % (AUTO) 89.9 % (42-78); TOTAL CELLS COUNTED % (AUTO) 100 %; VENOUS BLOOD BASE EXCESS 3.3 mmol/L; VENOUS BLOOD HCO3 30.1 mmol/L (20-32); VENOUS BLOOD PCO2 55.6 mmHg (35-63); VENOUS BLOOD PH 7.35 (7.30-7.42); WHITE BLOOD COUNT 15.9 10^3/uL (4.0-10.5)
[2020-04-04] LABS: ALBUMIN 4.2 g/dL (3.5-5.0); ALKALINE PHOSPHATASE 359 U/L (38-126); ANION GAP 7 (5-19); ASPARTATE AMINO TRANSFERASE 67 U/L (14-36); BILIRUBIN,DIRECT 0.4 mg/dL (0.0-0.4); BILIRUBIN,TOTAL 0.6 mg/dL (0.2-1.3); BLOOD UREA NITROGEN 12 mg/dL (7-20); CALCIUM 9.3 mg/dL (8.4-10.2); CARBON DIOXIDE 34 mmol/L (22-30); CHLORIDE 99 mmol/L (98-107); GLUCOSE 201 mg/dL (75-110); POTASSIUM 4.9 mmol/L (3.6-5.0)
[2020-04-04 00:11] LABS: NT PRO BNP 67 pg/mL (<125)
[2020-04-04 00:22] LABS: TROPONIN I < 0.012 ng/mL
[2020-04-04] MEDS ORDERED: DOXYCYCLINE HYCLATE 100 MG TABLET PO ONE (00:43)
[2020-04-04 02:25] VITALS: BP 137/97
--- NOTE | 2020-04-04 10:13 | EKG REPORT ---
SEVERITY:- BORDERLINE ECG - SINUS TACHYCARDIA PROBABLE LEFT ATRIAL ABNORMALITY : Confirmed by: Alee Bradley MD 04-Apr-2020 10:11:46
== END 2020-04-04 02:50 | disposition home or self-care (01) ==
LOC: ER 21:52
DX: R06.02 Shortness of breath (principal); R05 Cough; J45.909 Unspecified asthma, uncomplicated; Z99.81 Dependence on supplemental oxygen; I50.9 Heart failure, unspecified; E11.9 Type 2 diabetes mellitus without complications
CPT/HCPCS: 93005; 94640; 99285; 96361; 96365; 36415; 84703; 85025; 80053; 84484; 82803; 83880; 71045; 93010; A9270; J3475; J7030

== ENCOUNTER 2020-05-23 00:12 | Inpatient (IN) | payer MEDICARE, MEDICAID ==
[2020-05-23] MEDS ORDERED: LORAZEPAM INJ 2 MG/1 ML VIAL IV ONE (00:45)
[2020-05-23] MEDS ORDERED: LIDOCAINE 4% CREAM 5 GM TUBE TP ONE (01:01)
--- NOTE | 2020-05-23 01:09 | ER Document Report ---
ED General - General Chief Complaint: Shortness Of Breath Stated Complaint: SHORTNESS OF BREATH Time Seen by Provider: 05/23/20 00:22 Primary Care Provider: BOB CACERES PA [Primary Care Provider] - Follow up as needed TRAVEL OUTSIDE OF THE [place] IN LAST 30 DAYS: No - HPI Notes: Patient is a 44-year-old female with a history of sarcoidosis, oxygen dependent on 8 L per nasal cannula continuously, who presents to the emergency department for evaluation of increased shortness of breath. She states this is been ongoing for the last 2 days. She has been coughing, but states is really not much worse than her chronic cough. She denies any fevers or chills. She does have a headache. She has had some loose stools, but attributes that to spicy food she has been eating recently. She denies any nausea or vomiting. Normal urination. The patient states she was just tapered down to prednisone 10 mg twice a day from a burst that she received recently. She has been doing her pulmonary rehab, continues to see Dr. Campos. She was unaware of any fevers prior to arrival. - Related Data Allergies/Adverse Reactions: No Known Allergies Allergy (Verified 07/08/18 00:26) Home Medications: Lasix 40 mg daily, amlodipine 5 mg daily, Janumet mg twice a day, prednisone 10 mg daily Past Medical History - General Information source: Patient - Social History Smoking Status: Never Smoker Chew tobacco use (# tins/day): No Frequency of alcohol use: None Drug Abuse: None Family History: Reviewed & Not Pertinent Patient has homicidal ideation: No - Past Medical History Cardiac Medical History: Reports: Hx Congestive Heart Failure Pulmonary Medical History: Reports: Hx Asthma, Hx Bronchitis, Hx COPD, Other - Sarcoidosis Endocrine Medical History: Reports: Hx Diabetes Mellitus Type 2 Renal/ Medical History: Denies: Hx Peritoneal Dialysis Past Surgical History: Reports: Hx Gynecologic Surgery - fibroids, Hx Hysterectomy, Hx Thyroid Surgery Review of Systems - Review of Systems Constitutional: See HPI EENT: No symptoms reported Cardiovascular: No symptoms reported Respiratory: See HPI Gastrointestinal: See HPI Genitourinary: No symptoms reported Musculoskeletal: No symptoms reported Skin: No symptoms reported Neurological/Psychological: No symptoms reported -: Yes All other systems reviewed and negative Physical Exam - Vital signs Vitals: Temp BP 100.1 F 165/117 H 05/23/20 00:16 05/23/20 00:16 - Notes Notes: Is a 44-year-old female who appears her stated age, mild distress. Vital signs reviewed, please refer to chart. Head is normocephalic, atraumatic. Pupils equal round, reactive to light. Neck is supple without meningismus. Heart is regular rate and rhythm. Patient is mildly tachypneic, anxious appearing. She reveals diminished breath sounds over bilateral lung willis with occasional wheezes. Abdomen is soft, nontender, normoactive bowel sounds throughout. Extremities without cyanosis, clubbing. 2+ pretibial pitting edema bilaterally. Posterior calves are nontender. Peripheral pulses are equal. Skin is warm and dry. Patient is awake, alert, neurological exam is nonfocal. Course - Re-evaluation Re-evalutation: 05/23/20 01:06 Patient presents to the emergency department for evaluation. She was initially placed on nasal cannula at 8 L, but we did have some difficulty getting her oxygenation up. She was placed on 10 L per Ventimask. She is currently oxygenating 92 to 95%. Her heart rate and respiratory rates are elevated, but I do suspect this is somewhat secondary to anxiety. She is currently stable, we will continue to monitor. 05/23/20 02:58 Patient did not tolerate nonrebreather well at all. I did perform ABG, please see separate procedure note. Patient's oxygen level was stable on no nrebreather, but her respiratory rate increased. She was changed to high flow O2 and seems to be tolerating it better. Her respiratory rate is 27-30 currently. Her heart rate remains elevated. I do not feel comfortable giving a large amount of IV fluids in this 44-year-old female who is already having edema, has a history of CHF. Unfortunately I do not have an echocardiogram to evaluate her systolic ejection fraction. I spoke with Dr. Vale. He wonders whether, given her respiratory rate, she belongs in the ICU. I will contact the ICU APC on overnight. 05/23/20 03:06 I spoke with SHELDON Kent, on overnight for ICU. Listening to her presentation and parameters, he is unconvinced that this patient requires an ICU stay at this time. 05/23/20 05:[address] Vale in regards to this patient again. He has a CT angiogram be performed. CT angiogram was performed and failed to reveal any signs of pulmonary embolus. It does show new nodularity, likely secondary to her s arcoidosis, and a likely infiltrate. Patient is already received antibiotics. She received steroids prior to arrival. I spoke again with Dr. Vale, he will admit the patient for further care. - Vital Signs Vital signs: Temp Pulse Resp BP Pulse Ox 98.3 F 28 H 137/92 H 96 05/23/20 05:00 05/23/20 04:30 05/23/20 04:30 05/23/20 04:30 - Laboratory Result Diagrams: 05/23/20 00:43 05/23/20 00:43 Laboratory results interpreted by me: 05/23/20 05/23/20 05/23/20 00:43 00:43 00:43 WBC 18.8 H Hgb 11.3 L Hct 35.0 L MCV 75 L MCH 24.0 L RDW 20.4 H Absolute Neuts (auto) 14.0 H Absolute Monos (auto) 1.9 H Carbonic Acid ABG pCO2 ABG HCO3 ABG Total CO2 Carbon Dioxide 32 H Glucose 179 H Total Bilirubin 1.4 H Direct Bilirubin 0.7 H AST 85 H ALT 150 H Alkaline Phosphatase 329 H NT-Pro-B Natriuret Pep 352 H 05/23/20 02:10 WBC Hgb Hct MCV MCH RDW Absolute Neuts (auto) Absolute Monos (auto) Carbonic Acid 1.71 H ABG pCO2 56.8 H ABG HCO3 30.4 H ABG Total CO2 32.1 H Carbon Dioxide Glucose Total Bilirubin Direct Bilirubin AST ALT Alkaline Phosphatase NT-Pro-B Natriuret Pep - Diagnostic Test Radiology reviewed: Image reviewed, Reports reviewed Radiology results interpreted by me: 05/23/20 02:58 Chest X-Ray 05/23/20 00:36 IMPRESSION: 1. Diffuse abnormality of the lung interstitium which appears chronic and is unchanged. 2. Possible left suprahilar lung mass versus focal area of infiltrate. This area measures 2.2 cm. If clinically indicated this could be further assessed with follow-up chest CT. 3. Persistent widening of the cardiac and mediastinal silhouette. - EKG Interpretation by Me Additional EKG results interpreted by me: 05/23/20 02:59 Sinus tachycardia with a rate of 131 bpm. Normal axis and intervals. Nonspecific ST changes, but no acute changes concerning for ischemia or infarction. No significant change compared to prior study of April 03, 2020. Procedures - Additional Procedures ABG Additional Procedures: ABG - Right upper extremity was examined. Radial pulse was palpated. Patient has already been anesthetized with lidocaine cream. Patient had a normal Santosh test. The area was cleansed with alcohol and povidone iodine whipe. Heparinized needle/syringe was advanced until radial artery was cannulated. Positive red blood flow. Needle withdrawn, pressure applied. Bandage in place. Patient tolerated it well without difficulties or complications. Discharge - Discharge Clinical Impression: Acute on chronic respiratory failure with hypoxia, Sarcoidosis of lung, Pneumonia Condition: Stable Disposition: ADMITTED INPATIENT Admitting Provider: Vale Unit Admitted: IMCU Referrals: BOB CACERES PA [Primary Care Provider] - Follow up as needed
[2020-05-23 01:16] LABS: ABSOLUTE BASOPHILS # (AUTO) 0.1 10^3/uL (0.0-0.2); ABSOLUTE EOSINOPHILS # (AUTO) 0.3 10^3/uL (0.0-0.6); ABSOLUTE LYMPHOCYTES (AUTO) 2.5 10^3/uL (0.5-4.7); ABSOLUTE MONOCYTES (AUTO) 1.9 10^3/uL (0.1-1.4); BASOPHILS % (AUTO) 0.3 % (0-2); EOSINOPHILS % (AUTO) 1.7 % (0-6); HEMOGLOBIN 11.3 g/dL (12.0-15.5); LYMPHOCYTES % (AUTO) 13.4 % (13-45); MEAN CORPUSCULAR HGB CONC 32.2 g/dL (32.0-36.0); MEAN CORPUSCULAR VOLUME 75 fl (80-97); MONOCYTES % (AUTO) 9.9 % (3-13); PLATELET COUNT 275 10^3/uL (150-450); RED BLOOD COUNT 4.69 10^6/uL (3.72-5.28); RED CELL DISTRIBUTION WIDTH 20.4 % (11.5-14.0); SEGMENTED NEUTROPHILS % (AUTO) 74.7 % (42-78); TOTAL CELLS COUNTED % (AUTO) 100 %; WHITE BLOOD COUNT 18.8 10^3/uL (4.0-10.5)
--- NOTE | 2020-05-23 01:31 | RADIOLOGY REPORT (SQ) ---
EXAM DESCRIPTION: X-ray, single view of the chest CLINICAL HISTORY: 44 years Female, dyspnea, hypoxia COMPARISON: Single view of the chest 04/03/2020 FINDINGS: Lungs: Diffuse abnormality of the lung interstitium is identified with increase in small irregular shadows and septal lines. There is more focal opacification in the perihilar and right lower lobe. Overall the appearance is similar to the previous exam. Nodular densities seen in the left upper lobe which may represent vascular shadows. A pulmonary nodule cannot be excluded. This area measures 2.2 cm. Mediastinum: Cardiac and mediastinal silhouette are widened. Bones: Osseous structures are stable IMPRESSION: 1. Diffuse abnormality of the lung interstitium which appears chronic and is unchanged. 2. Possible left suprahilar lung mass versus focal area of infiltrate. This area measures 2.2 cm. If clinically indicated this could be further assessed with follow-up chest CT. 3. Persistent widening of the cardiac and mediastinal silhouette.
[2020-05-23 01:33] LABS: ALBUMIN 3.8 g/dL (3.5-5.0); ALKALINE PHOSPHATASE 329 U/L (38-126); ANION GAP 10 (5-19); ASPARTATE AMINO TRANSFERASE 85 U/L (14-36); BILIRUBIN,DIRECT 0.7 mg/dL (0.0-0.4); BILIRUBIN,TOTAL 1.4 mg/dL (0.2-1.3); BLOOD UREA NITROGEN 7 mg/dL (7-20); CALCIUM 9.3 mg/dL (8.4-10.2); CARBON DIOXIDE 32 mmol/L (22-30); CHLORIDE 98 mmol/L (98-107); GLUCOSE 179 mg/dL (75-110); POTASSIUM 3.9 mmol/L (3.6-5.0)
[2020-05-23 02:31] LABS: ARTERIAL BLOOD BASE EXCESS 3.4 mmol/L; ARTERIAL BLOOD H2CO3 1.71 mmol/L (1.05-1.35); ARTERIAL BLOOD HCO3 30.4 mmol/L (20-24); ARTERIAL BLOOD O2 SATURATION 95.7 % (94-98); ARTERIAL BLOOD PCO2 56.8 mmHg (35-45); ARTERIAL BLOOD PH 7.35 (7.35-7.45); ARTERIAL BLOOD TOTAL CO2 32.1 mmol/L (21-25)
[2020-05-23 02:37] LABS: ARTERIAL BLOOD FIO2 10L
[2020-05-23] MEDS ORDERED: AZITHROMYCIN INJ 500 MG VIAL IV ONE (02:47)
[2020-05-23] MEDS ORDERED: CEFTRIAXONE 1 GM/D5W RTU 1 GM/50 ML RTUPB IV ONE ×2 (02:47→05:34)
[2020-05-23] MEDS ORDERED: NORMAL SALINE 1000 ML 1,000 ML IV ONE (02:48)
[2020-05-23] MEDS ORDERED: ACETAMINOPHEN 325 MG TABLET PO ONE (05:28)
--- NOTE | 2020-05-23 05:32 | RADIOLOGY REPORT (SQ) ---
CLINICAL HISTORY: dyspnea, pneumonia, eval for PE. CREAT 0.54 COMPARISON: 10/29/2019. TECHNIQUE: CT CHEST ANGIOGRAPHY WITHOUT THEN WITH IV CONTRAST on 05/23/2020 4:34 AM CDT. MIPS reconstructions were generated. This exam was performed according to our departmental dose-optimization program, which includes automated exposure control, adjustment of the mA and/or kV according to patient size and/or use of iterative reconstruction technique. MIP images were generated. FINDINGS: Thoracic aorta is normal in course and caliber without aneurysm or dissection. Pulmonary arteries are adequately opacified without acute or chronic filling defects. The heart is mildly enlarged. There is no pericardial effusion. Intrathoracic lymph nodes are not enlarged. There is no pleural effusion, pleural thickening or pneumothorax. Central airways are patent. There is worsening mosaic attenuation of the lungs. There is suggestion of airspace disease in the left lower lobe is several nodules in the left upper lobe measuring up to 1.2 cm. These nodules are new. Liver is highly nodular with multiple low-density masses throughout the liver. There are no acute osseous findings. No suspicious bony lesions. IMPRESSION: Cardiomegaly with no aortic dissection or aneurysm. No pulmonary embolus. Minimal left basilar presumed pneumonia with several left upper lobe pulmonary nodules which are new. Extensive nodularity of the liver. Underlying metastatic disease needs to be excluded.
[2020-05-23] MEDS ORDERED: GLUCAGON,HUMAN RECOMB 1 MG INJ IM PRN (06:54)
[2020-05-23] MEDS ORDERED: DEXTROSE 40% GEL 15 GM TUBE PO PRN ×2 (06:54)
[2020-05-23] MEDS ORDERED: DEXTROSE 50%-WATER 25 GM/50 ML DISP.SYRIN IV PRN ×2 (06:54)
[2020-05-23] MEDS: ACETAMINOPHEN 325 MG TABLET PO PRN ×2 (08:03→17:03)
--- NOTE | 2020-05-23 08:03 | PDOC H&P ---
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 Ziegler as an outpatient for the sarcoidosis of the lung and the referral to the [facility] for possible transplant and also see Dr. Bradley as outpatient as per the heart failure and Dr. Thompson for the liver disease came to the emergency departments by EMS because of the increasing the shortness of the breath for the last 2 days and increasing more cough Patient is denied any fever no chills Patient's denied any contact with any Covid Patients denied any chest pain In the emergency department patient's for the high flow oxygen's patient's pH was all normal patient's respiratory rate was 42 and heart rate was elevated initially patient was try to put in the ICU with the merchandising internship suggests no need for ICU criteria at this point When I saw the patient in the ER patient is alert awake oriented x4 currently on high flow oxygen's no distressed Patient's denied any chest pain Denied any shortness of the breath with a high flow oxygen's Patient CT angiogram was negative for any PE Patient is currently receiving the Solu-Medrol IV and IV antibiotic Due to the ongoing pandemic we will check the Covid test Patient at this point remaining in the IMCU Past Medical History Cardiac Medical History: Reports: Congestive Heart Failure Pulmonary Medical History: Reports: Asthma, Bronchitis, Chronic Obstructive Pulmonary Disease (COPD), Respiratory Failure, Other - Sarcoidosis Endocrine Medical History: Reports: Diabetes Mellitus Type 2 GI Medical History: Reports: Gastroesophageal Reflux Disease Hematology: Reports: Anemia Past Surgical History Past Surgical History: Reports: Hysterectomy Social History Information Source: Patient Smoking Status: Never Smoker Electronic Cigarette use?: No Frequency of Alcohol Use: None Hx Recreational Drug Use: No Drugs: None Hx Prescription Drug Abuse: No Family History Family History: Reviewed & Not Pertinent Parental Family History Reviewed: Yes Children Family History Reviewed: Yes Sibling(s) Family History Reviewed.: Yes Medication/Allergy Home Medications: Amlodipine Besylate [Norvasc 5 mg Tablet] 5 mg PO DAILY 07/27/19 Sitagliptin Phos/Metformin HCl [Janumet 50-1,000 mg Tablet] 1 tab PO BID 07/27/19 Budesonide/Formoterol Fumarate [Symbicort HFA 160-4.5 mcg Inhaler 6 gm] 2 puff IH Q12 10/30/19 Furosemide [Lasix 40 mg Tablet] 40 mg PO BID 10/30/19 Prednisone [Deltasone 20 mg Tablet] 10 mg PO DAILY 10/30/19 Levofloxacin [Levaquin 750 mg Tablet] 750 mg PO DAILY #7 tablet 10/31/19 Prednisone [Deltasone 20 mg Tablet] 20 mg PO DAILY #30 tablet 10/31/19 Doxycycline Hyclate [Vibramycin 100 mg Tablet] 100 mg PO BID #19 tablet 02/24/20 Doxycycline Hyclate [Vibramycin 100 mg Tablet] 100 mg PO BID 10 Days #20 tablet 04/04/20 Prednisone [Deltasone 10 mg Tablet] 10 mg PO ASDIR PRN #21 tablet 04/04/20 Allergies/Adverse Reactions: No Known Allergies Allergy (Verified 07/08/18 00:26) Review of Systems Constitutional: ABSENT: chills, fever(s), headache(s), weight gain, weight loss Eyes: ABSENT: visual disturbances Ears: ABSENT: hearing changes Cardiovascular: PRESENT: dyspnea on exertion. ABSENT: chest pain, edema, orthropnea, palpitations Respiratory: PRESENT: cough, dyspnea. ABSENT: hemoptysis Gastrointestinal: ABSENT: abdominal pain, constipation, diarrhea, hematemesis, hematochezia, nausea, vomiting Genitourinary: ABSENT: dysuria, hematuria Musculoskeletal: ABSENT: joint swelling Integumentary: ABSENT: rash, wounds Neurological: ABSENT: abnormal gait, abnormal speech, confusion, dizziness, focal weakness, syncope Psychiatric: ABSENT: anxiety, depression, homidical ideation, suicidal ideation Endocrine: ABSENT: cold intolerance, heat intolerance, menstrual abnormalities, polydipsia, polyuria Hematologic/Lymphatic: ABSENT: easy bleeding, easy bruising, lymphadenopathy Physical Exam Vital Signs: Temp Pulse Resp BP Pulse Ox 98.3 F 26 H 127/92 H 98 05/23/20 05:00 05/23/20 05:30 05/23/20 06:01 05/23/20 07:30 Intake & Output 05/22/20 05/23/20 05/24/20 06:59 06:59 06:59 Intake Total 1050 Balance 1050 General appearance: PRESENT: mild distress, obese, well-developed, well- nourished Head exam: PRESENT: atraumatic, normocephalic Eye exam: PRESENT: conjunctiva pink, EOMI, PERRLA. ABSENT: scleral icterus Ear exam: PRESENT: normal external ear exam Mouth exam: PRESENT: moist, tongue midline Neck exam: PRESENT: full ROM. ABSENT: carotid bruit, JVD, lymphadenopathy, thy romegaly Respiratory exam: PRESENT: decreased breath sounds Cardiovascular exam: PRESENT: RRR. ABSENT: diastolic murmur, rubs, systolic murmur Pulses: PRESENT: normal dorsalis pedis pul, +2 pedal pulses bilateral Vascular exam: PRESENT: normal capillary refill GI/Abdominal exam: PRESENT: normal bowel sounds, soft. ABSENT: distended, guarding, mass, organolmegaly, rebound, tenderness Rectal exam: PRESENT: deferred Neurological exam: PRESENT: alert, awake, oriented to person, oriented to place, oriented to time, oriented to situation, CN II-XII grossly intact. ABSENT: motor sensory deficit Psychiatric exam: PRESENT: appropriate affect, normal mood. ABSENT: homicidal ideation, suicidal ideation Skin exam: PRESENT: dry, intact, warm. ABSENT: cyanosis, rash Results Laboratory Results: 05/23/20 00:43 05/23/20 00:43 05/23/20 05/23/20 05/23/20 00:43 00:43 02:10 WBC 18.8 H RBC 4.69 Hgb 11.3 L Hct 35.0 L MCV 75 L MCH 24.0 L MCHC 32.2 RDW 20.4 H Plt Count 275 Seg Neutrophils % 74.7 Carbonic Acid 1.71 H HCO3/H2CO3 Ratio 17:1 ABG pH 7.35 ABG pCO2 56.8 H ABG pO2 85.0 ABG HCO3 30.4 H ABG O2 Saturation 95.7 ABG Base Excess 3.4 FiO2 10L Sodium 140.3 Potassium 3.9 Chloride 98 Carbon Dioxide 32 H Anion Gap 10 BUN 7 Creatinine 0.54 Est GFR ( Amer) > 60 Glucose 179 H Calcium 9.3 Total Bilirubin 1.4 H AST 85 H Alkaline Phosphatase 329 H Total Protein 7.0 Albumin 3.8 05/23/20 00:43 NT-Pro-B Natriuret Pep 352 H Impressions: Chest X-Ray 05/23/20 00:36 IMPRESSION: 1. Diffuse abnormality of the lung interstitium which appears chronic and is unchanged. 2. Possible left suprahilar lung mass versus focal area of infiltrate. This area measures 2.2 cm. If clinically indicated this could be further assessed with follow-up chest CT. 3. Persistent widening of the cardiac and mediastinal silhouette. Chest/Abdomen CTA 05/23/20 04:34 IMPRESSION: Cardiomegaly with no aortic dissection or aneurysm. No pulmonary embolus. Minimal left basilar presumed pneumonia with several left upper lobe pulmonary nodules which are new. Extensive nodularity of the liver. Underlying metastatic disease needs to be excluded. Assessment & Plan - Diagnosis (1) Acute on chronic respiratory failure with hypoxia Is this a current diagnosis for this admission?: Yes Plan: Continues on high flow oxygen Patient is very anxious Continue IV steroids and nebulizer treatments Consult the pulmonary (2) Pneumonia Qualifiers: Lung location: unspecified part of lung Is this a current diagnosis for this admission?: Yes Plan: Start the patient on IV antibiotic Check the Covid test due to the ongoing pandemic (3) Sarcoidosis of lung Is this a current diagnosis for this admission?: Yes Plan: Continues to IV steroids (4) Hypertension Qualifiers: Hypertension type: essential hypertension Qualified Code(s): I10 - Essenti al (primary) hypertension Is this a current diagnosis for this admission?: Yes (5) T2DM (type 2 diabetes mellitus) Qualifiers: Diabetes mellitus intermediate insulin use: without intermediate use Is this a current diagnosis for this admission?: Yes Plan: Patient was sliding scale (6) Elevated liver enzymes Is this a current diagnosis for this admission?: Yes Plan: Patient's most likely sarcoid related to liver biopsy done by Dr. Thompson in the past (7) Congestive heart failure Qualifiers: Heart failure type: diastolic Heart failure chronicity: chronic Qualified Code(s): I50.32 - Chronic diastolic (congestive) heart failure Is this a current diagnosis for this admission?: Yes Plan: The echocardiogram consulted Dr. Bradley - Time Time Spent: 50 to 70 Minutes Medications reviewed and adjusted accordingly: Yes Anticipated Discharge Disposition: Home with Home Health Anticipated Discharge Timeframe: within 72 hours - Inpatient Certification Based on my medical assessment, after consideration of the patient's comorbidities, presenting symptoms, or acuity I expect that the services needed warrant INPATIENT care.: Yes I certify that my determination is in accordance with my understanding of Medicare's requirements for reasonable and necessary INPATIENT services [42 CFR 412.3e].: Yes Medical Necessity: Failure to Improve With Outpatient Therapy, Significant Comorbidiites Make Outpatient Treatment Too Risky, Need Close Monitoring Due to Risk of Patient Decompensation, Need for Nebulizer Therapy and Monitoring of Response, Need for IV Antibiotics Post Hospital 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
[2020-05-23] MEDS: BUDESONIDE NEB 0.5 MG/2 ML AMPUL NEB SCH ×2 (08:44→20:59)
[2020-05-23] MEDS: LEVALBUTEROL HCL NEB 1.25 MG/3 ML AMPUL NEB SCH ×4 (08:44→20:59)
--- NOTE | 2020-05-23 08:57 | EKG REPORT ---
SEVERITY:- ABNORMAL ECG - SINUS TACHYCARDIA PROBABLE LEFT ATRIAL ABNORMALITY NONSPECIFIC T ABNORMALITIES, LATERAL LEADS : Confirmed by: Suresh Roman 23-May-2020 08:57:07
[2020-05-23] MEDS: INSULIN LISPRO 100 UNIT/ML 3 ML VIAL SUBCUT SCH ×5 (09:11→21:58)
[2020-05-23] MEDS ORDERED: CEFEPIME 2 GM/D5W RTU 2 GM/50 ML RTUPB IV SCH (10:00)
[2020-05-23] MEDS: FAMOTIDINE INJ/PF 20 MG/2 ML SDV IV SCH ×3 (10:34→22:21)
[2020-05-23] MEDS: ENOXAPARIN SODIUM INJ 40 MG/0.4 ML DISP.SYRIN SUBCUT SCH (10:35)
[2020-05-23 11:17] LABS: APPEARANCE,URINE SLIGHTLY-CLOUDY; BILIRUBIN,URINE NEGATIVE (NEGATIVE); COLOR,URINE YELLOW; GLUCOSE, URINE >=500 mg/dL (NEGATIVE); KETONES,URINE 20 mg/dL (NEGATIVE); LEUKOCYTE ESTERASE,URINE NEGATIVE (NEGATIVE); NITRITE,URINE NEGATIVE (NEGATIVE); PROTEIN,URINE 100 mg/dL (NEGATIVE)
[2020-05-23] MEDS: CEFEPIME HCL 2 GM in DEXTROSE 5%-WATER 50 ML IV SCH ×2 (11:58→21:52)
--- NOTE | 2020-05-23 14:40 | PDOC CONSULTATION ---
Consultation Consult Date: 05/23/20 Attending physician:: FANI CEDENO Provider Consulted: DARWIN SANCHEZ Consult reason:: Dyspnea/sarcoidosiscongestive heart failure History of Present Illness Admission Date/PCP: 05/23/20 05:55 SHELDON WILHELM History of Present Illness: TRE WARREN is a 44 year old female carrying diagnosis of sarcoidosis for the last 3 years with cardiac liver involvement as well as lung involvement she has been had increasing shortness of breath over the prior 3 days but denies cough fevers chills hemoptysis her PPD was negative dates unknown no history of chronic lung disease as a child or adolescent admits exposure to passive smoke as a child as well as an adult no pets no recent travel no anginal-like chest pain sleeps on 2-3 pillows rare PND rare nocturnal cough occasional edema she is unaware of any snoring but admits to restless sleep nocturia 2-3 times per night unrestful sleep and daytime somnolence. Past Medical History Cardiac Medical History: Reports: Congestive Heart Failure Pulmonary Medical History: Reports: Asthma, Bronchitis, Chronic Obstructive Pulmonary Disease (COPD), Respiratory Failure, Other - Sarcoidosis Endocrine Medical History: Reports: Diabetes Mellitus Type 2 GI Medical History: Reports: Gastroesophageal Reflux Disease Hematology: Reports: Anemia Past Surgical History Past Surgical History: Reports: Hysterectomy Social History Information Source: Patient, [facility] Records Smoking Status: Never Smoker Passive smoke exposure as: Child Frequency of Alcohol Use: None Hx Recreational Drug Use: No Drugs: None Hx Prescription Drug Abuse: No Do you have pets?: No Have you had any respiratory illnesses as a child?: No Have you been exposed to any sick contacts recently?: No Have you had any recent respiratory illnesses?: No Have you travelled outside of [place] in the past 12 months?: No Family History Family History: Hyperlipidemia, Hypertension Parental Family History Reviewed: Yes Children Family History Reviewed: Yes Sibling(s) Family History Reviewed.: Yes Medication/Allergy Home Medications: Amlodipine Besylate [Norvasc 5 mg Tablet] 5 mg PO DAILY 07/27/19 Sitagliptin Phos/Metformin HCl [Janumet 50-1,000 mg Tablet] 1 tab PO BIDBS 07/09 04/27 Budesonide/Formoterol Fumarate [Symbicort HFA 160-4.5 mcg Inhaler 6 gm] 2 puff IH Q12 10/30/19 Albuterol Sulfate [Albuterol Sulfate Hfa] 2 puff IH QIDP PRN 05/23/20 Furosemide [Lasix 40 mg Tablet] 40 mg PO QAM 05/23/20 Prednisone [Deltasone 10 mg Tablet] 10 mg PO DAILY 05/23/20 Allergies/Adverse Reactions: No Known Allergies Allergy (Verified 07/08/18 00:26) Review of Systems All systems: reviewed and no additional remarkable complaints except as stated Physical Exam Vital Signs: Temp Pulse Resp BP Pulse Ox 98.3 F 111 H 34 H 123/76 100 05/23/20 05:00 05/23/20 12:13 05/23/20 13:31 05/23/20 13:31 05/23/20 13:31 Intake & Output 05/22/20 05/23/20 05/24/20 06:59 06:59 06:59 Intake Total 1050 Balance 1050 Weight 102.3 kg General appearance: PRESENT: cooperative, disheveled, mild distress, morbidly obese, well-developed, well-nourished Head exam: PRESENT: atraumatic, normocephalic Eye exam: PRESENT: conjunctiva pale, EOMI. ABSENT: nystagmus, periorbital swelling, scleral icterus Mouth exam: PRESENT: dry mucosa, neck supple, tongue midline Neck exam: ABSENT: carotid bruit, full ROM, JVD, lymphadenopathy, meningismus, tenderness, thyromegaly, tracheal deviation, tracheostomy, other Respiratory exam: PRESENT: decreased breath sounds, prolonged expiratory phas, rhonchi, symmetrical, tachypnea, unlabored. ABSENT: crackles, retraction, stridor, wheezes Cardiovascular exam: PRESENT: RRR, +S1, +S2, tachycardia Pulses: PRESENT: normal radial pulses GI/Abdominal exam: PRESENT: soft. ABSENT: distended, guarding, mass, rebound, tenderness Extremities exam: ABSENT: calf tenderness, clubbing, joint swelling, tenderness Musculoskeletal exam: ABSENT: deformity, dislocation Neurological exam: PRESENT: alert, awake Psychiatric exam: PRESENT: anxious, appropriate affect Skin exam: PRESENT: dry, warm Results Laboratory Results: 05/23/20 00:43 05/23/20 00:43 05/23/20 05/23/20 05/23/20 00:43 00:43 00:43 WBC 18.8 H RBC 4.69 Hgb 11.3 L Hct 35.0 L MCV 75 L MCH 24.0 L MCHC 32.2 RDW 20.4 H Plt Count 275 Seg Neutrophils % 74.7 Carbonic Acid HCO3/H2CO3 Ratio ABG pH ABG pCO2 ABG pO2 ABG HCO3 ABG O2 Saturation ABG Base Excess FiO2 Sodium 140.3 Potassium 3.9 Chloride 98 Carbon Dioxide 32 H Anion Gap 10 BUN 7 Creatinine 0.54 Est GFR ( Amer) > 60 Glucose 179 H Calcium 9.3 Total Bilirubin 1.4 H AST 85 H Alkaline Phosphatase 329 H C-Reactive Protein 195.3 H Total Protein 7.0 Albumin 3.8 Urine Color Urine Appearance Urine pH Ur Specific [place] Urine Protein Urine Glucose (UA) Urine Ketones Urine Blood Urine Nitrite Ur Leukocyte Esterase Urine WBC (Auto) Urine RBC (Auto) 05/23/20 05/23/20 02:10 10:56 WBC RBC Hgb Hct MCV MCH MCHC RDW Plt Count Seg Neutrophils % Carbonic Acid 1.71 H HCO3/H2CO3 Ratio 17:1 ABG pH 7.35 ABG pCO2 56.8 H ABG pO2 85.0 ABG HCO3 30.4 H ABG O2 Saturation 95.7 ABG Base Excess 3.4 FiO2 10L Sodium Potassium Chloride Carbon Dioxide Anion Gap BUN Creatinine Est GFR ( Amer) Glucose Calcium Total Bilirubin AST Alkaline Phosphatase C-Reactive Protein Total Protein Albumin Urine Color YELLOW Urine Appearance SLIGHTLY-CLOUDY Urine pH 6.0 Ur Specific [place] 1.030 Urine Protein 100 H Urine Glucose (UA) >=500 H Urine Ketones 20 H Urine Blood NEGATIVE Urine Nitrite NEGATIVE Ur Leukocyte Esterase NEGATIVE Urine WBC (Auto) 1 Urine RBC (Auto) 14 05/23/20 00:43 NT-Pro-B Natriuret Pep 352 H Impressions: Chest X-Ray 05/23/20 00:36 IMPRESSION: 1. Diffuse abnormality of the lung interstitium which appears chronic and is unchanged. 2. Possible left suprahilar lung mass versus focal area of infiltrate. This area measures 2.2 cm. If clinically indicated this could be further assessed with follow-up chest CT. 3. Persistent widening of the cardiac and mediastinal silhouette. Chest/Abdomen CTA 05/23/20 04:34 IMPRESSION: Cardiomegaly with no aortic dissection or aneurysm. No pulmonary embolus. Minimal left basilar presumed pneumonia with several left upper lobe pulmonary nodules which are new. Extensive nodularity of the liver. Underlying metastatic disease needs to be excluded. Assessment & Plan - Diagnosis (1) Acute on chronic respiratory failure with hypoxia Is this a current diagnosis for this admission?: Yes Plan: Generic Name Dose Route Start Last Admin Trade Name Damon PRN Reason Stop Dose Admin Azithromycin 250 mg/ Dextrose 250 mls @ 250 mls/hr 05/24/20 06:00 IV 05/31/20 05:59 Q6AM ELVIS Levalbuterol HCl 1.25 mg 05/23/20 08:00 05/23/20 12:13 Xopenex Neb 1.25 Mg/3 Ml Ampul NEB 06/22/20 07:59 1.25 mg RTQ4 ELVIS Budesonide 0.5 mg 05/23/20 08:00 05/23/20 08:44 Pulmicort Neb 0.5 Mg/2 Ml Ampul NEB 06/22/20 07:59 0.5 mg RTQ12 ELVIS Methylprednisolone Sodium Succinate 80 mg 05/23/20 14:00 Solu-Medrol Inj/Pf 125 Mg/2 Ml Sdv IV 06/22/20 13:59 Q8 ELVIS (2) Sarcoidosis of lung Is this a current diagnosis for this admission?: Yes Plan: Continue with her current therapy including prednisone (3) Diabetes Qualifiers: Diabetes mellitus type: type 2 Is this a current diagnosis for this admission?: Yes Plan: Dysuria plus ketonuria (4) Obesity hypoventilation syndrome Is this a current diagnosis for this admission?: Yes Plan: Labs- All tests 24 hr 05/23/20 02:10 ABG pH 7.35 ABG pCO2 56.8 H ABG pO2 85.0 ABG O2 Saturation 95.7 FiO2 10L - Time Time Spent with patient: 55 min Time Spent: 50 to 70 Minutes
--- NOTE | 2020-05-23 14:57 | PDOC CONSULTATION ---
Consultation-Blank Consultation: CARDIOLOGY Consultation by Dr. Alee Bradley on 05/23/2020. Patient seen at 2 PM (60 minutes spent with patient with 50% of time spent in direct patient care. REASON FOR CONSULTATION: Shortness of breath possibly sarcoid involvement of the heart. CONSULT REQUESTING PHYSICIAN: Dr. Vale. HISTORY OF PRESENT ILLNESS: Patient is a 44-year-old -[place] female with known history of sarcoidosis of the lung and liver, on chronic steroid therapy states since 3 to 4 days has been having progressively increasing shortness of breath orthopnea. Occasional case of PND. The patient also seems to have intermittent leg edema. She denies any chest pain or discomfort. The patient being tested for Covid and now are awaiting results. She denies any fever chills or rigors, although early this morning her temperature was 100.1. She has no contact with persons suspected or positive for Covid19. The patient has a history of hypertension diabetes mellitus. The patient denies any any palpitations or near syncope or syncope. There is no TIA CVA symptoms. The patient complains of dry cough but no sputum production. There is no hemoptysis or pleuritic chest pain. Pulmonary CT angiogram is negative for pulmonary emboli or an infiltrate consistent with sarcoidosis. The patient's sedimentation rate is high as also CRP. Avoid angiotensin-converting enzyme levels. The patient already has been started on high-dose methylprednisone intravenously. Past Medical History Cardiac Medical History: Reports: Congestive Heart Failure Pulmonary Medical History: Reports: Asthma, Bronchitis, Chronic Obstructive Pulmonary Disease (COPD), Respiratory Failure, Other - Sarcoidosis Endocrine Medical History: Reports: Diabetes Mellitus Type 2 GI Medical History: Reports: Gastroesophageal Reflux Disease Hematology: Reports: Anemia Past Surgical History Past Surgical History: Reports: Hysterectomy Social History Information Source: Patient Smoking Status: Never Smoker Electronic Cigarette use?: No Frequency of Alcohol Use: None Hx Recreational Drug Use: No Drugs: None Hx Prescription Drug Abuse: No Family History Family History: Reviewed & Not Pertinent Parental Family History Reviewed: Yes Children Family History Reviewed: Yes Sibling(s) Family History Reviewed.: Yes Medication/Allergy Home Medications: Amlodipine Besylate [Norvasc 5 mg Tablet] 5 mg PO DAILY 07/27/19 Sitagliptin Phos/Metformin HCl [Janumet 50-1,000 mg Tablet] 1 tab PO BID 07/27/19 Budesonide/Formoterol Fumarate [Symbicort HFA 160-4.5 mcg Inhaler 6 gm] 2 puff IH Q12 10/30/19 Furosemide [Lasix 40 mg Tablet] 40 mg PO BID 10/30/19 Prednisone [Deltasone 20 mg Tablet] 10 mg PO DAILY 10/30/19 Levofloxacin [Levaquin 750 mg Tablet] 750 mg PO DAILY #7 tablet 10/31/19 Prednisone [Deltasone 20 mg Tablet] 20 mg PO DAILY #30 tablet 10/31/19 Doxycycline Hyclate [Vibramycin 100 mg Tablet] 100 mg PO BID #19 tablet 02/24/20 Doxycycline Hyclate [Vibramycin 100 mg Tablet] 100 mg PO BID 10 Days #20 tablet 04/04/20 Prednisone [Deltasone 10 mg Tablet] 10 mg PO ASDIR PRN #21 tablet 04/04/20 Allergies/Adverse Reactions: No Known Allergies Allergy (Verified 07/08/18 00: 26) Current Medications Generic Name Dose Route Start Last Admin Trade Name Freq PRN Reason Stop Dose Admin Acetaminophen 650 mg 05/23/20 06:45 05/23/20 17:03 Tylenol 325 Mg Tablet PO 06/22/20 06:44 650 mg Q4HP PRN Administration FOR PAIN OR TEMP Amlodipine Besylate 5 mg 05/24/20 10:00 Norvasc 5 Mg Tablet PO 06/23/20 09:59 DAILY ELVIS Budesonide 0.5 mg 05/23/20 08:00 05/23/20 20:59 Pulmicort Neb 0.5 Mg/2 Ml Ampul NEB 06/22/20 07:59 0.5 mg RTQ12 ELVIS Administration Dextrose 12.5 gm 05/23/20 06:54 Dextrose Inj 50% Syringe (25 Gm/50 Ml) IV 06/22/20 06:53 PRN PRN FOR BG 50-69 IN ALERT PATIENT Protocol Dextrose 25 gm 05/23/20 06:54 Dextrose Inj 50% Syringe (25 Gm/50 Ml) IV 06/22/20 06:53 PRN PRN PER PROTOCOL Protocol Enoxaparin Sodium 40 mg 05/23/20 10:00 05/23/20 10:35 Lovenox Inj 40 Mg/0.4 Ml Disp.Syrin SUBCUT 06/22/20 09:59 40 mg DAILY ELVIS Administration Famotidine 20 mg 05/23/20 10:00 05/23/20 22:21 Pepcid Inj/Pf 20 Mg/2 Ml Sdv IV 06/22/20 09:59 Not Given Q12 ELVIS Glucagon 1 mg 05/23/20 06:54 Glucagen Inj 1 Mg Vial IM 06/22/20 06:53 PRN PRN Evaluate for BG < 70 Protocol Glucose 15 gm 05/23/20 06:54 Glutose 40% Gel 15 Gm Tube PO 06/22/20 06:53 PRN PRN FOR BG 50-69 IN ALERT PATIENT Protocol Glucose 30 gm 05/23/20 06:54 Glutose 40% Gel 15 Gm Tube PO 06/22/20 06:53 PRN PRN FOR BG < 50 IN ALERT PATIENT Protocol Cefepime HCl 2 gm/ Dextrose 50 mls @ 100 mls/hr 05/23/20 10:00 05/23/20 21:52 IV 05/30/20 09:59 100 mls/hr Q12 ELVIS Administration Azithromycin 250 mg/ Dextrose 250 mls @ 250 mls/hr 05/24/20 06:00 IV 05/31/20 05:59 Q6AM ELVIS Insulin Human Lispro 0 - 12 unit 05/23/20 08:00 05/23/20 21:58 Humalog Insulin 100 Unit/1 Ml 3 Ml Vial SUBCUT 06/22/20 07:59 8 unit ACHS ELVIS Administration Protocol Levalbuterol HCl 1.25 mg 05/23/20 08:00 05/23/20 20:59 Xopenex Neb 1.25 Mg/3 Ml Ampul NEB 06/22/20 07:59 1.25 mg RTQ4 ELVIS Administration Methylprednisolone Sodium Succinate 80 mg 05/23/20 14:00 05/23/20 21:47 Solu-Medrol Inj/Pf 125 Mg/2 Ml Sdv IV 06/22/20 13:59 80 mg Q8 ELVIS Administration Discontinued Medications Generic Name Dose Route Start Last Admin Trade Name Freq PRN Reason Stop Dose Admin Acetaminophen 650 mg 05/23/20 05:28 05/23/20 05:36 Tylenol 325 Mg Tablet PO 05/23/20 05:29 650 mg NOW ONE Administration Azithromycin 500 mg 05/23/20 02:47 05/23/20 03:58 Zithromax Inj 500 Mg Vial IV 05/23/20 02:48 500 mg IVBAG (ED) ONE Administration Ceftriaxone Sodium/Dextrose 1 gm in 50 mls @ 100 mls/hr 05/23/20 02:47 05/23/20 06:06 Rocephin Rtu 1 Gm/D5w 50 Ml Premix IV 05/23/20 03:16 Infused NOW ONE Infusion Sodium Chloride 1,000 mls @ 0 mls/hr 05/23/20 02:48 05/23/20 05:21 Nacl 0.9% 1000 Ml Iv Soln IV 05/23/20 02:49 Infused BOLUS ONE Infusion Wide Open Ceftriaxone Sodium/Dextrose Confirm 05/23/20 05:34 05/23/20 05:41 Rocephin Rtu 1 Gm/D5w 50 Ml Premix Administered 05/23/20 05:35 Not Given Dose 1 gm in 50 mls @ ud IV .STK-MED ONE Cefepime HCl 2 gm in 50 mls @ 100 mls/hr 05/23/20 10:00 Maxipime Rtu 2 Gm-D5w 50 Ml Premix Bag IV 05/30/20 09:59 Q12 ELVIS Azithromycin 250 mg/ Dextrose 250 mls @ 250 mls/hr 05/24/20 06:00 IV 05/31/20 05:59 Q6AM ELVIS Lidocaine 1 applic 05/23/20 01:01 05/23/20 04:19 Anecream 4% Tube 5 Gm TP 05/23/20 01:02 Not Given NOW ONE Lorazepam 1 mg 05/23/20 00:45 05/23/20 01:07 Ativan Inj 2 Mg/1 Ml Vial IV 05/23/20 00:46 1 mg NOW ONE Administration RESUSCITATION STATUS: Patient is a full code. Mr. Clifton Barroso is her surrogate healthcare decision maker Review of Systems Constitutional: ABSENT: chills, fever(s), headache(s), weight gain, weight loss Eyes: ABSENT: visual disturbances Ears: ABSENT: hearing changes Cardiovascular: PRESENT: dyspnea on exertion. ABSENT: chest pain, edema, orthropnea, palpitations Respiratory: PRESENT: cough, dyspnea. ABSENT: hemoptysis Gastrointestinal: ABSENT: abdominal pain, constipation, diarrhea, hematemesis, hematochezia, nausea, vomiting Genitourinary: ABSENT: dysuria, hematuria Musculoskeletal: ABSENT: joint swelling Integumentary: ABSENT: rash, wounds Neurological: ABSENT: abnormal gait, abnormal speech, confusion, dizziness, focal weakness, syncope Psychiatric: ABSENT: anxiety, depression, homidical ideation, suicidal ideation Endocrine: ABSENT: cold intolerance, heat intolerance, menstrual abnormalities, polydipsia, polyuria Hematologic/Lymphatic: Is atraumatic normocephalic. Easy bleeding, easy bruising, lymphadenopathy Physical Exam: Patient is a 44-year-old female with cushingoid features and on nasal BiPAP. She is moderately obese. At present on the BiPAP she does not seem to be in any respiratory distress. Selected Entries 05/23/20 05/23/20 05/23/20 04:02 12:00 12:01 Temperature 98.3 F Temperature Oral Source Heart Rate ( 110 Monitors) Respiratory 25 H Rate Blood Pressure 124/85 Blood Pressure 98 Mean O2 Sat by Pulse Oximetry Oxygen Flow Patient on nasal BiPAP. Rate 05/23/20 05/23/20 12:13 15:02 Temperature 97.4 F Temperature Oral Source Heart Rate ( Monitors) Respiratory Rate Blood Pressure Blood Pressure Mean O2 Sat by Pulse 97 Oximetry Oxygen Flow 40 Rate HEAD: Atraumatic normocephalic. EYES: Pupils are equal round regular reactive light accommodation. Extraocular movements are normal. There is no conjunctival pallor. There is no scleral icterus. ENT is negative. Patient has a nasal BiPAP. MOUTH: Mucous membranes of mouth are moist. Tongue is moist. There is no ulcers. There is no bleeding from the gums. THROAT: There is no redness of the oropharynx. There is no exudates. SKIN: There is no skin rashes. There is no petechia or ecchymosis. There is no skin lesions. NECK: Is supple. There is is mild JVD. Carotids are equal there is no bruit. There is no lymphadenopathy. There is no carotid bruit there is no accessory muscles of respiration use. Trachea central. LUNGS: Show diminished air entry and prolonged expiration. There are scattered rhonchi. There is no wheezing or crackles or rales. There is no rales of CHF. HEART: S1-S2 is heard. There is tachycardia present. There is no S3 gallop. There is no finger. There is no rub. Systolic murmur left sternal border and the apex. There is no rub. ABDOMEN: Soft. Nontender mildly obese. There is truncal obesity present. There is no hepatosplenomegaly. Bowel sounds are well heard. EXTREMITIES: Femorals are diminished. There is no femoral bruits. Leg pulses slightly diminished. There is trace pedal edema bilaterally. There is no DVT or cellulitis. There is no calf tenderness. There is no cyanosis or clubbing. Capillary refill is normal. 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 The patient is EKG on admission shows sinus tachycardia. Nonspecific T changes lateral leads. The patient had an echocardiogram in March 2020 in the office which showed normal left ventricular chamber size and wall motion ejection fraction. LV ejection fraction was 60%. There was mild to moderate pulmonary hypertension with right ventricle systolic pressure 47 mmHg. The patient's repeat echo today shows normal left ventricular chamber size wall thickness and wall motion. LV ejection fraction 60%. There is mild to moderate tricuspid regurgitation. There is severe pulmonary hypertension. Right ventricle systolic pressures 6 to be images of mercury with a RA mean of 10. Labs- Entire Visit 05/23/20 05/23/20 05/23/20 00:43 00:43 00:43 WBC 18.8 H RBC 4.69 Hgb 11.3 L Hct 35.0 L MCV 75 L MCH 24.0 L MCHC 32.2 RDW 20.4 H Plt Count 275 Lymph % (Auto) 13.4 Harper % (Auto) 9.9 Eos % (Auto) 1.7 Baso % (Auto) 0.3 Absolute Neuts (auto) 14.0 H Absolute Lymphs (auto) 2.5 Absolute Monos (auto) 1.9 H Absolute Eos (auto) 0.3 Absolute Basos (auto) 0.1 Seg Neutrophils % 74.7 ESR Carbonic Acid HCO3/H2CO3 Ratio ABG pH ABG pCO2 ABG pO2 ABG HCO3 ABG Total CO2 ABG O2 Saturation ABG Base Excess FiO2 Sodium 140.3 Potassium 3.9 Chloride 98 Carbon Dioxide 32 H Anion Gap 10 BUN 7 Creatinine 0.54 Est GFR ( Amer) > 60 Est GFR (MDRD) Non-Af > 60 Glucose 179 H POC Glucose Calcium 9.3 Total Bilirubin 1.4 H Direct Bilirubin 0.7 H Neonat Total Bilirubin Not Reportable Neonat Direct Bilirubin Not Reportable Neonat Indirect Bili Not Reportable AST 85 H ALT 150 H Alkaline Phosphatase 329 H C-Reactive Protein NT-Pro-B Natriuret Pep 352 H Total Protein 7.0 Albumin 3.8 Urine Color Urine Appearance Urine pH Ur Specific [place] Urine Protein Urine Glucose (UA) Urine Ketones Urine Blood Urine Nitrite Urine Bilirubin Urine Urobilinogen Ur Leukocyte Esterase Urine WBC (Auto) Urine RBC (Auto) Urine Bacteria (Auto) Squamous Epi Cells Auto Urine Mucus (Auto) Urine Ascorbic Acid COVID-19 Source 05/23/20 05/23/20 05/23/20 00:43 00:43 02:10 WBC RBC Hgb Hct MCV MCH MCHC RDW Plt Count Lymph % (Auto) Harper % (Auto) Eos % (Auto) Baso % (Auto) Absolute Neuts (auto) Absolute Lymphs (auto) Absolute Monos (auto) Absolute Eos (auto) Absolute Basos (auto) Seg Neutrophils % ESR 66 H Carbonic Acid 1.71 H HCO3/H2CO3 Ratio 17:1 ABG pH 7.35 ABG pCO2 56.8 H ABG pO2 85.0 ABG HCO3 30.4 H ABG Total CO2 32.1 H ABG O2 Saturation 95.7 ABG Base Excess 3.4 FiO2 10L Sodium Potassium Chloride Carbon Dioxide Anion Gap BUN Creatinine Est GFR ( Amer) Est GFR (MDRD) Non-Af Glucose POC Glucose Calcium Total Bilirubin Direct Bilirubin Neonat Total Bilirubin Neonat Direct Bilirubin Neonat Indirect Bili AST ALT Alkaline Phosphatase C-Reactive Protein 195.3 H NT-Pro-B Natriuret Pep Total Protein Albumin Urine Color Urine Appearance Urine pH Ur Specific [place] Urine Protein Urine Glucose (UA) Urine Ketones Urine Blood Urine Nitrite Urine Bilirubin Urine Urobilinogen Ur Leukocyte Esterase Urine WBC (Auto) Urine RBC (Auto) Urine Bacteria (Auto) Squamous Epi Cells Auto Urine Mucus (Auto) Urine Ascorbic Acid COVID-19 Source 05/23/20 05/23/20 05/23/20 09:05 10:10 10:56 WBC RBC Hgb Hct MCV MCH MCHC RDW Plt Count Lymph % (Auto) Harper % (Auto) Eos % (Auto) Baso % (Auto) Absolute Neuts (auto) Absolute Lymphs (auto) Absolute Monos (auto) Absolute Eos (auto) Absolute Basos (auto) Seg Neutrophils % ESR Carbonic Acid HCO3/H2CO3 Ratio ABG pH ABG pCO2 ABG pO2 ABG HCO3 ABG Total CO2 ABG O2 Saturation ABG Base Excess FiO2 Sodium Potassium Chloride Carbon Dioxide Anion Gap BUN Creatinine Est GFR ( Amer) Est GFR (MDRD) Non-Af Glucose POC Glucose 362 H Calcium Total Bilirubin Direct Bilirubin Neonat Total Bilirubin Neonat Direct Bilirubin Neonat Indirect Bili AST ALT Alkaline Phosphatase C-Reactive Protein NT-Pro-B Natriuret Pep Total Protein Albumin Urine Color YELLOW Urine Appearance SLIGHTLY-CLOUDY Urine pH 6.0 Ur Specific [place] 1.030 Urine Protein 100 H Urine Glucose (UA) >=500 H Urine Ketones 20 H Urine Blood NEGATIVE Urine Nitrite NEGATIVE Urine Bilirubin NEGATIVE Urine Urobilinogen 2.0 H Ur Leukocyte Esterase NEGATIVE Urine WBC (Auto) 1 Urine RBC (Auto) 14 Urine Bacteria (Auto) TRACE Squamous Epi Cells Auto 4 Urine Mucus (Auto) RARE Urine Ascorbic Acid NEGATIVE COVID-19 Source See comment 05/23/20 05/23/20 05/23/20 13:29 17:07 21:22 WBC RBC Hgb Hct MCV MCH MCHC RDW Plt Count Lymph % (Auto) Harper % (Auto) Eos % (Auto) Baso % (Auto) Absolute Neuts (auto) Absolute Lymphs (auto) Absolute Monos (auto) Absolute Eos (auto) Absolute Basos (auto) Seg Neutrophils % ESR Carbonic Acid HCO3/H2CO3 Ratio ABG pH ABG pCO2 ABG pO2 ABG HCO3 ABG Total CO2 ABG O2 Saturation ABG Base Excess FiO2 Sodium Potassium Chloride Carbon Dioxide Anion Gap BUN Creatinine Est GFR ( Amer) Est GFR (MDRD) Non-Af Glucose POC Glucose 422 H* 399 H 313 H Calcium Total Bilirubin Direct Bilirubin Neonat Total Bilirubin Neonat Direct Bilirubin Neonat Indirect Bili AST ALT Alkaline Phosphatase C-Reactive Protein NT-Pro-B Natriuret Pep Total Protein Albumin Urine Color Urine Appearance Urine pH Ur Specific [place] Urine Protein Urine Glucose (UA) Urine Ketones Urine Blood Urine Nitrite Urine Bilirubin Urine Urobilinogen Ur Leukocyte Esterase Urine WBC (Auto) Urine RBC (Auto) Urine Bacteria (Auto) Squamous Epi Cells Auto Urine Mucus (Auto) Urine Ascorbic Acid COVID-19 Source Chest X-Ray 05/23/20 00:36 IMPRESSION: 1. Diffuse abnormality of the lung interstitium which appears chronic and is unchanged. 2. Possible left suprahilar lung mass versus focal area of infiltrate. This area measures 2.2 cm. If clinically indicated this could be further assessed with follow-up chest CT. 3. Persistent widening of the cardiac and mediastinal silhouette. Chest/Abdomen CTA 05/23/20 04:34 IMPRESSION: Cardiomegaly with no aortic dissection or aneurysm. No pulmonary embolus. Minimal left basilar presumed pneumonia with several left upper lobe pulmonary nodules which are new. Extensive nodularity of the liver. Underlying metastatic disease needs to be excluded. IMPRESSION/RECOMMENDATION: 1. Shortness of breath and dyspnea on exertion to rest shortness of breath: This is secondary to patient's pulmonary hypertension and acute exacerbation of sarcoidosis especially of the lung. 2. Severe pulmonary hypertension: Would recommend increase the patient's amlodipine. Continue steroids high-dose. 3. Sarcoidosis with acute flareup. There is involvement of the lung and liver from the sarcoid. Would recommend high-dose steroids. 4. Hypertension:: Blood pressure seems to be well controlled. 5. Diabetes mellitus. Continue antidiabetic treatment and Accu-Cheks serially. 6. 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 7. There seems to be no evidence of left-ventricular compromise in the form of sarcoid induced cardiomyopathy during his acute sarcoid flareup. Medications reviewed. Medications adjusted. Medical regimen and management plan discussed with Dr. Vale. Medical decision making is of high complexity. 60 minutes spent as patient more than 50% of time spent in direct patient care. Discussed echo findings with the patient and with Dr. Vale. Note pulmonology is on consult his consult is appreciated. Will follow
[2020-05-23] MEDS: METHYLPREDNISOLONE INJ 125 MG/2 ML SDV IV SCH ×2 (15:06→21:47)
[2020-05-23] MEDS ORDERED: AMLODIPINE BESYLATE 5 MG TABLET PO ONE (23:30)
[2020-05-24] MEDS: LEVALBUTEROL HCL NEB 1.25 MG/3 ML AMPUL NEB SCH ×6 (00:53→20:57)
[2020-05-24] MEDS: ACETAMINOPHEN 325 MG TABLET PO PRN (00:55)
[2020-05-24] MEDS: METHYLPREDNISOLONE INJ 125 MG/2 ML SDV IV SCH ×3 (05:44→21:47)
[2020-05-24] MEDS: AZITHROMYCIN 250 MG in DEXTROSE 5%-WATER 250 ML IV SCH (05:45)
[2020-05-24 05:46] LABS: HEMOGLOBIN 11.3 g/dL (12.0-15.5); MEAN CORPUSCULAR HEMOGLOBIN 23.9 pg (27.0-33.4); MEAN CORPUSCULAR HGB CONC 31.5 g/dL (32.0-36.0); MEAN CORPUSCULAR VOLUME 76 fl (80-97); PLATELET COUNT 287 10^3/uL (150-450); RED BLOOD COUNT 4.75 10^6/uL (3.72-5.28); RED CELL DISTRIBUTION WIDTH 20.2 % (11.5-14.0); WHITE BLOOD COUNT 21.9 10^3/uL (4.0-10.5)
[2020-05-24] MEDS ORDERED: AZITHROMYCIN 250 MG in DEXTROSE 5%-WATER 250 ML IV SCH (06:00)
[2020-05-24 06:08] LABS: ALBUMIN 4.1 g/dL (3.5-5.0); ALKALINE PHOSPHATASE 301 U/L (38-126); ANION GAP 10 (5-19); ASPARTATE AMINO TRANSFERASE 56 U/L (14-36); BILIRUBIN,DIRECT 0.6 mg/dL (0.0-0.4); BILIRUBIN,TOTAL 0.9 mg/dL (0.2-1.3); BLOOD UREA NITROGEN 18 mg/dL (7-20); CALCIUM 10.2 mg/dL (8.4-10.2); CARBON DIOXIDE 33 mmol/L (22-30); CHLORIDE 96 mmol/L (98-107); GLUCOSE 290 mg/dL (75-110); POTASSIUM 5.2 mmol/L (3.6-5.0); TOTAL PROTEIN 7.5 g/dL (6.3-8.2)
[2020-05-24 06:16] LABS: ABSOLUTE LYMPHOCYTES# (MANUAL) 2.4 10^3/uL (0.5-4.7); ABSOLUTE MONOCYTES # (MANUAL) 0.4 10^3/uL (0.1-1.4); BASOPHILS % (MANUAL) 0 % (0-2); EOSINOPHILS % (MANUAL) 0 % (0-6); LYMPHOCYTES % (MANUAL) 11 % (13-45); MONOCYTES % (MANUAL) 2 % (3-13); SEGMENTED NEUTROPHILS % (MAN) 87 % (42-78); TOTAL CELLS COUNTED 100
[2020-05-24 06:18] LABS: ANISOCYTOSIS 2+; HYPOCHROMASIA SLIGHT; POIKILOCYTOSIS SLIGHT; POLYCHROMASIA SLIGHT; TARGET CELLS 1+; TEAR DROP CELLS SLIGHT
[2020-05-24 06:19] LABS: PLATELET COMMENT ADEQUATE
[2020-05-24] MEDS: BUDESONIDE NEB 0.5 MG/2 ML AMPUL NEB SCH ×2 (07:57→20:57)
[2020-05-24] MEDS: INSULIN LISPRO 100 UNIT/ML 3 ML VIAL SUBCUT SCH ×4 (08:34→21:46)
--- NOTE | 2020-05-24 08:36 | PDOC PROGRESS REPORT ---
Subjective Progress Note for:: 05/24/20 Subjective:: Patient is currently doing fair Denied any chest pain no short of breath Still need a high flow oxygen and using the CPAP at night Patient's COVID test is negative Reason For Visit: RESPIRATORY FAILURE,PNEUMONIA Physical Exam Vital Signs: Temp Pulse Resp BP Pulse Ox 97.6 F 96 17 131/83 H 98 05/24/20 08:00 05/24/20 08:00 05/24/20 08:00 05/24/20 08:00 05/24/20 08:00 Intake & Output 05/23/20 05/24/20 05/25/20 06:59 06:59 06:59 Intake Total 1050 840 Balance 1050 840 Weight 102.3 kg General appearance: PRESENT: no acute distress, obese Head exam: PRESENT: atraumatic, normocephalic Eye exam: PRESENT: conjunctiva pink, EOMI, PERRLA. ABSENT: scleral icterus Ear exam: PRESENT: normal external ear exam Mouth exam: PRESENT: moist, tongue midline Neck exam: PRESENT: full ROM. ABSENT: carotid bruit, JVD, lymphadenopathy, thyromegaly Respiratory exam: PRESENT: decreased breath sounds Cardiovascular exam: PRESENT: RRR. ABSENT: diastolic murmur, rubs, systolic murmur Pulses: PRESENT: normal dorsalis pedis pul, +2 pedal pulses bilateral Vascular exam: PRESENT: normal capillary refill GI/Abdominal exam: PRESENT: normal bowel sounds, soft. ABSENT: distended, guarding, mass, organolmegaly, rebound, tenderness Rectal exam: PRESENT: deferred Neurological exam: PRESENT: alert, awake, oriented to person, oriented to place, oriented to time, oriented to situation, CN II-XII grossly intact. ABSENT: mo tor sensory deficit Psychiatric exam: PRESENT: appropriate affect, normal mood. ABSENT: homicidal ideation, suicidal ideation Skin exam: PRESENT: dry, intact, warm. ABSENT: cyanosis, rash Results Laboratory Results: 05/24/20 04:35 05/24/20 04:35 05/23/20 05/23/20 05/24/20 00:43 10:56 04:35 WBC 21.9 H RBC 4.75 Hgb 11.3 L Hct 36.0 MCV 76 L MCH 23.9 L MCHC 31.5 L RDW 20.2 H Plt Count 287 Seg Neutrophils % Not Reportable Sodium Potassium Chloride Carbon Dioxide Anion Gap BUN Creatinine Est GFR ( Amer) Glucose Calcium Total Bilirubin AST Alkaline Phosphatase C-Reactive Protein 195.3 H Total Protein Albumin Urine Color YELLOW Urine Appearance SLIGHTLY-CLOUDY Urine pH 6.0 Ur Specific [place] 1.030 Urine Protein 100 H Urine Glucose (UA) >=500 H Urine Ketones 20 H Urine Blood NEGATIVE Urine Nitrite NEGATIVE Ur Leukocyte Esterase NEGATIVE Urine WBC (Auto) 1 Urine RBC (Auto) 14 05/24/20 04:35 WBC RBC Hgb Hct MCV MCH MCHC RDW Plt Count Seg Neutrophils % Sodium 138.9 Potassium 5.2 H Chloride 96 L Carbon Dioxide 33 H Anion Gap 10 BUN 18 Creatinine 0.54 Est GFR ( Amer) > 60 Glucose 290 H Calcium 10.2 Total Bilirubin 0.9 AST 56 H Alkaline Phosphatase 301 H C-Reactive Protein Total Protein 7.5 Albumin 4.1 Urine Color Urine Appearance Urine pH Ur Specific [place] Urine Protein Urine Glucose (UA) Urine Ketones Urine Blood Urine Nitrite Ur Leukocyte Esterase Urine WBC (Auto) Urine RBC (Auto) 05/23/20 00:43 NT-Pro-B Natriuret Pep 352 H Impressions: Chest X-Ray 05/23/20 00:36 IMPRESSION: 1. Diffuse abnormality of the lung interstitium which appears chronic and is unchanged. 2. Possible left suprahilar lung mass versus focal area of infiltrate. This area measures 2.2 cm. If clinically indicated this could be further assessed with follow-up chest CT. 3. Persistent widening of the cardiac and mediastinal silhouette. Chest/Abdomen CTA 05/23/20 04:34 IMPRESSION: Cardiomegaly with no aortic dissection or aneurysm. No pulmonary embolus. Minimal left basilar presumed pneumonia with several left upper lobe pulmonary nodules which are new. Extensive nodularity of the liver. Underlying metastatic disease needs to be excluded. Assessment & Plan - Diagnosis (1) Acute on chronic respiratory failure with hypoxia Is this a current diagnosis for this admission?: Yes Plan: Continues to current high flow oxygen and CPAP at night follow-up with the Dr. 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 Pringle - Time Time Spent with patient: 15-24 minutes Level of Care: IMCU Medications reviewed and adjusted accordingly: Yes Anticipated discharge: Home Anticipated DC Timeframe: within 72 hours - Plan Summary Plan Summary: Continues to current medications
[2020-05-24] MEDS ORDERED: AMLODIPINE BESYLATE 5 MG TABLET PO SCH (10:00)
[2020-05-24 10:14] LABS: ARTERIAL BLOOD BASE EXCESS 5.2 mmol/L; ARTERIAL BLOOD H2CO3 1.75 mmol/L (1.05-1.35); ARTERIAL BLOOD HCO3 32.1 mmol/L (20-24); ARTERIAL BLOOD O2 SATURATION 92.1 % (94-98); ARTERIAL BLOOD PCO2 58.1 mmHg (35-45); ARTERIAL BLOOD PH 7.36 (7.35-7.45); ARTERIAL BLOOD PO2 66.6 mmHg (80-100); ARTERIAL BLOOD TOTAL CO2 33.9 mmol/L (21-25)
[2020-05-24 10:38] LABS: ARTERIAL BLOOD FIO2 85%
--- NOTE | 2020-05-24 11:04 | Progress Note ---
Provider Note Provider Note: CARDIOLOGY PROGRESS NOTE by Dr. Alee Bradley on 05/24/2020. SUBJECTIVE: Patient still on nasal BiPAP. She states that shortness of breath is slightly improved. She still has orthopnea. There is no chest pain or discomfort. There is no cough or wheezing. There is no leg edema. There is no PND. There is no arrhythmias seen on the monitor. Patient is in sinus tachycardia. PHYSICAL EXAMINATION: The patient is moderately obese. At present in no acute distress patient on nasal BiPAP. Selected Entries 05/24/20 05/24/20 05/24/20 14:00 16:27 17:54 Pulse Rate 101 H 114 H Respiratory 24 H Rate Respiratory Tachypnea Pattern Blood Pressure 127/97 H Blood Pressure 107 Mean BP Location Right Arm BP Position Sitting O2 Sat by Pulse 99 Oximetry Fraction of 85 Inspired Oxygen (FIO2) Oxygen Flow 35 Rate HEAD: Atraumatic normocephalic. EYES: Pupils are equal round regular reactive light accommodation. Extraocular movements are normal. There is no conjunctival pallor. There is no scleral icterus. ENT is negative. Patient has a nasal BiPAP. MOUTH: Mucous membranes of mouth are moist. Tongue is moist. There is no ulcers. There is no bleeding from the gums. THROAT: There is no redness of the oropharynx. There is no exudates. SKIN: There is no skin rashes. There is no petechia or ecchymosis. There is no skin lesions. NECK: Is supple. There is is mild JVD. Carotids are equal there is no bruit. There is no lymphadenopathy. There is no carotid bruit there is no accessory muscles of respiration use. Trachea central. LUNGS: Show diminished air entry and prolonged expiration. There are scattered rhonchi. There is no wheezing or crackles or rales. There is no rales of CHF. HEART: S1-S2 is heard. There is tachycardia present. There is no S3 gallop. There is no finger. There is no rub. Systolic murmur left sternal border and the apex. There is no rub. ABDOMEN: Soft. Nontender mildly obese. There is truncal obesity present. There is no hepatosplenomegaly. Bowel sounds are well heard. EXTREMITIES: Femorals are diminished. There is no femoral bruits. Leg pulses slightly diminished. There is trace pedal edema bilaterally. There is no DVT or cellulitis. There is no calf tenderness. There is no cyanosis or clubbing. Capillary refill is normal. 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 Labs- All tests 24 hr 05/23/20 05/24/20 05/24/20 10:10 04:35 04:35 WBC 21.9 H RBC 4.75 Hgb 11.3 L Hct 36.0 MCV 76 L MCH 23.9 L MCHC 31.5 L RDW 20.2 H Plt Count 287 Lymph % (Auto) Not Reportable [place] % (Auto) Not Reportable Eos % (Auto) Not Reportable Baso % (Auto) Not Reportable Absolute Neuts (auto) Not Reportable Absolute Lymphs (auto) Not Reportable Absolute Monos (auto) Not Reportable Absolute Eos (auto) Not Reportable Absolute Basos (auto) Not Reportable Total Counted 100 Seg Neutrophils % Not Reportable Seg Neuts % (Manual) 87 H Lymphocytes % (Manual) 11 L Monocytes % (Manual) 2 L Eosinophils % (Manual) 0 Basophils % (Manual) 0 Abs Neuts (Manual) 19.1 H Abs Lymphs (Manual) 2.4 Abs Monocytes (Manual) 0.4 Absolute Eos (Manual) 0.0 Abs Basophils (Manual) 0.0 Platelet Comment ADEQUATE Polychromasia SLIGHT Hypochromasia SLIGHT Poikilocytosis SLIGHT Anisocytosis 2+ Microcytosis SLIGHT Target Cells 1+ Tear Drop Cells SLIGHT Carbonic Acid HCO3/H2CO3 Ratio ABG pH ABG pCO2 ABG pO2 ABG HCO3 ABG Total CO2 ABG O2 Saturation ABG Base Excess FiO2 Sodium 138.9 Potassium 5.2 H Chloride 96 L Carbon Dioxide 33 H Anion Gap 10 BUN 18 Creatinine 0.54 Est GFR ( Amer) > 60 Est GFR (MDRD) Non-Af > 60 Glucose 290 H POC Glucose Calcium 10.2 Total Bilirubin 0.9 Direct Bilirubin 0.6 H Neonat Total Bilirubin Not Reportable Neonat Direct Bilirubin Not Reportable Neonat Indirect Bili Not Reportable AST 56 H ALT 140 H Alkaline Phosphatase 301 H Total Protein 7.5 Albumin 4.1 COVID-19 (FROYLAN) Not Detected 05/24/20 05/24/20 05/24/20 07:30 09:50 11:33 WBC RBC Hgb Hct MCV MCH MCHC RDW Plt Count Lymph % (Auto) [place] % (Auto) Eos % (Auto) Baso % (Auto) Absolute Neuts (auto) Absolute Lymphs (auto) Absolute Monos (auto) Absolute Eos (auto) Absolute Basos (auto) Total Counted Seg Neutrophils % Seg Neuts % (Manual) Lymphocytes % (Manual) Monocytes % (Manual) Eosinophils % (Manual) Basophils % (Manual) Abs Neuts (Manual) Abs Lymphs (Manual) Abs Monocytes (Manual) Absolute Eos (Manual) Abs Basophils (Manual) Platelet Comment Polychromasia Hypochromasia Poikilocytosis Anisocytosis Microcytosis Target Cells Tear Drop Cells Carbonic Acid 1.75 H HCO3/H2CO3 Ratio 18:1 ABG pH 7.36 ABG pCO2 58.1 H ABG pO2 66.6 L ABG HCO3 32.1 H ABG Total CO2 33.9 H ABG O2 Saturation 92.1 L ABG Base Excess 5.2 FiO2 85% Sodium Potassium Chloride Carbon Dioxide Anion Gap BUN Creatinine Est GFR ( Amer) Est GFR (MDRD) Non-Af Glucose POC Glucose 292 H 376 H Calcium Total Bilirubin Direct Bilirubin Neonat Total Bilirubin Neonat Direct Bilirubin Neonat Indirect Bili AST ALT Alkaline Phosphatase Total Protein Albumin COVID-19 (FROYLAN) 05/24/20 17:54 WBC RBC Hgb Hct MCV MCH MCHC RDW Plt Count Lymph % (Auto) [place] % (Auto) Eos % (Auto) Baso % (Auto) Absolute Neuts (auto) Absolute Lymphs (auto) Absolute Monos (auto) Absolute Eos (auto) Absolute Basos (auto) Total Counted Seg Neutrophils % Seg Neuts % (Manual) Lymphocytes % (Manual) Monocytes % (Manual) Eosinophils % (Manual) Basophils % (Manual) Abs Neuts (Manual) Abs Lymphs (Manual) Abs Monocytes (Manual) Absolute Eos (Manual) Abs Basophils (Manual) Platelet Comment Polychromasia Hypochromasia Poikilocytosis Anisocytosis Microcytosis Target Cells Tear Drop Cells Carbonic Acid HCO3/H2CO3 Ratio ABG pH ABG pCO2 ABG pO2 ABG HCO3 ABG Total CO2 ABG O2 Saturation ABG Base Excess FiO2 Sodium Potassium Chloride Carbon Dioxide Anion Gap BUN Creatinine Est GFR ( Amer) Est GFR (MDRD) Non-Af Glucose POC Glucose 243 H Calcium Total Bilirubin Direct Bilirubin Neonat Total Bilirubin Neonat Direct Bilirubin Neonat Indirect Bili AST ALT Alkaline Phosphatase Total Protein Albumin COVID-19 (FROYLAN) Chest X-Ray 05/23/20 00:36 IMPRESSION: 1. Diffuse abnormality of the lung interstitium which appears chronic and is unchanged. 2. Possible left suprahilar lung mass versus focal area of infiltrate. This area measures 2.2 cm. If clinically indicated this could be further assessed with follow-up chest CT. 3. Persistent widening of the cardiac and mediastinal silhouette. Chest/Abdomen CTA 05/23/20 04:34 IMPRESSION: Cardiomegaly with no aortic dissection or aneurysm. No pulmonary embolus. Minimal left basilar presumed pneumonia with several left upper lobe pulmonary nodules which are new. Extensive nodularity of the liver. Underlying metastatic disease needs to be excluded. IMPRESSION/RECOMMENDATION: 1. Shortness of breath and dyspnea on exertion to rest shortness of breath: This is secondary to patient's pulmonary hypertension and acute exacerbation of sarcoidosis especially of the lung. 2. Severe pulmonary hypertension: Would recommend increase the patient's amlodipine. Continue steroids high-dose. 3. Sarcoidosis with acute flareup. There is involvement of the lung and liver from the sarcoid. Would recommend high-dose steroids. 4. Hypertension:: Blood pressure seems to be well controlled. 5. Diabetes mellitus. Continue antidiabetic treatment and Accu-Cheks serially. 6. 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 7. There seems to be no evidence of left-ventricular compromise in the form of sarcoid induced cardiomyopathy during his acute sarcoid flareup. Medications reviewed. Medications adjusted. Medical regimen and management plan discussed with Dr. Vale. Medical decision making is of high complexity. 40 minutes spent as patient more than 50% of time spent in direct patient care. Discussed echo findings with the patient and with Dr. Vale. Note pulmonology is on consult his consult is appreciated. Will follow
[2020-05-24] MEDS: ENOXAPARIN SODIUM INJ 40 MG/0.4 ML DISP.SYRIN SUBCUT SCH (12:01)
[2020-05-24] MEDS: FAMOTIDINE INJ/PF 20 MG/2 ML SDV IV SCH ×2 (12:01→21:40)
[2020-05-24] MEDS: CEFEPIME HCL 2 GM in DEXTROSE 5%-WATER 50 ML IV SCH ×2 (12:02→21:46)
[2020-05-24] MEDS: AMLODIPINE BESYLATE 5 MG TABLET PO SCH ×2 (12:02→21:47)
[2020-05-24] MEDS ORDERED: (PENDING PHARMACY ID) (Sitagliptin Phos/Metformin Hcl [Janumet 50-1,000 Mg Tablet] 1 TAB) PO SCH (17:00)
[2020-05-24] MEDS: SITAGLIPTIN PHOSPHATE 50 MG TABLET PO SCH (18:28)
[2020-05-24] MEDS: METFORMIN HCL 500 MG TABLET PO SCH (18:29)
[2020-05-25] MEDS: LEVALBUTEROL HCL NEB 1.25 MG/3 ML AMPUL NEB SCH ×6 (00:55→20:45)
[2020-05-25] MEDS: AZITHROMYCIN 250 MG in DEXTROSE 5%-WATER 250 ML IV SCH (05:32)
[2020-05-25] MEDS: METHYLPREDNISOLONE INJ 125 MG/2 ML SDV IV SCH (05:32)
[2020-05-25 06:20] LABS: HEMOGLOBIN 10.9 g/dL (12.0-15.5); MEAN CORPUSCULAR HEMOGLOBIN 23.9 pg (27.0-33.4); MEAN CORPUSCULAR HGB CONC 31.1 g/dL (32.0-36.0); MEAN CORPUSCULAR VOLUME 77 fl (80-97); PLATELET COUNT 289 10^3/uL (150-450); RED BLOOD COUNT 4.56 10^6/uL (3.72-5.28); RED CELL DISTRIBUTION WIDTH 19.9 % (11.5-14.0); WHITE BLOOD COUNT 23.1 10^3/uL (4.0-10.5)
[2020-05-25 06:22] LABS: ANION GAP 8 (5-19); BLOOD UREA NITROGEN 25 mg/dL (7-20); CALCIUM 10.1 mg/dL (8.4-10.2); CARBON DIOXIDE 32 mmol/L (22-30); CHLORIDE 95 mmol/L (98-107); POTASSIUM 5.1 mmol/L (3.6-5.0)
[2020-05-25 06:32] LABS: GLUCOSE 405 mg/dL (75-110)
[2020-05-25] MEDS: INSULIN LISPRO 100 UNIT/ML 3 ML VIAL SUBCUT SCH ×4 (06:59→22:57)
[2020-05-25] MEDS: SITAGLIPTIN PHOSPHATE 50 MG TABLET PO SCH ×2 (07:00→16:24)
[2020-05-25] MEDS: METFORMIN HCL 500 MG TABLET PO SCH ×2 (07:00→16:24)
[2020-05-25 07:18] LABS: ABSOLUTE LYMPHOCYTES# (MANUAL) 1.8 10^3/uL (0.5-4.7); ABSOLUTE MONOCYTES # (MANUAL) 2.3 10^3/uL (0.1-1.4); BASOPHILS % (MANUAL) 0 % (0-2); EOSINOPHILS % (MANUAL) 0 % (0-6); LYMPHOCYTES % (MANUAL) 8 % (13-45); MONOCYTES % (MANUAL) 10 % (3-13); SEGMENTED NEUTROPHILS % (MAN) 82 % (42-78); TOTAL CELLS COUNTED 100
[2020-05-25 07:25] LABS: ANISOCYTOSIS 2+; OVALOCYTES SLIGHT; PLATELET COMMENT ADEQUATE; PLATELET LARGE PRESENT; TEAR DROP CELLS SLIGHT
[2020-05-25] MEDS ORDERED: BUDESONIDE NEB 0.5 MG/2 ML AMPUL NEB ONE (08:51)
[2020-05-25] MEDS: BUDESONIDE NEB 0.5 MG/2 ML AMPUL NEB SCH ×2 (08:52→20:45)
[2020-05-25] MEDS: FAMOTIDINE INJ/PF 20 MG/2 ML SDV IV SCH ×3 (09:59→23:02)
[2020-05-25] MEDS: ENOXAPARIN SODIUM INJ 40 MG/0.4 ML DISP.SYRIN SUBCUT SCH (09:59)
[2020-05-25] MEDS: PREDNISONE 20 MG TABLET PO SCH ×2 (10:00→17:14)
[2020-05-25] MEDS: AMLODIPINE BESYLATE 5 MG TABLET PO SCH ×2 (10:00→22:56)
[2020-05-25] MEDS ORDERED: LOSARTAN POTASSIUM 25 MG TABLET PO SCH (10:00)
[2020-05-25] MEDS: CEFEPIME HCL 2 GM in DEXTROSE 5%-WATER 50 ML IV SCH ×2 (10:00→22:56)
--- NOTE | 2020-05-25 10:54 | PDOC PROGRESS REPORT ---
Subjective Progress Note for:: 05/25/20 Subjective:: Patient is currently doing well Patient is denied any chest pain no short of breath Patient's blood sugar was elevated most likely due to the steroid Reason For Visit: RESPIRATORY FAILURE,PNEUMONIA Physical Exam Vital Signs: Temp Pulse Resp BP Pulse Ox 97.3 F 90 24 H 129/90 H 99 05/25/20 08:28 05/25/20 08:35 05/25/20 08:35 05/25/20 08:28 05/25/20 08:35 Intake & Output 05/24/20 05/25/20 05/26/20 06:59 06:59 06:59 Intake Total 840 722 Output Total 1400 Balance 840 -678 Weight 102.3 kg General appearance: PRESENT: no acute distress, obese, well-developed, well- nourished Head exam: PRESENT: atraumatic, normocephalic Eye exam: PRESENT: conjunctiva pink, EOMI, PERRLA. ABSENT: scleral icterus Ear exam: PRESENT: normal external ear exam Mouth exam: PRESENT: moist, tongue midline Neck exam: PRESENT: full ROM. ABSENT: carotid bruit, JVD, lymphadenopathy, thyromegaly Respiratory exam: PRESENT: decreased breath sounds Cardiovascular exam: PRESENT: RRR. ABSENT: diastolic murmur, rubs, systolic murmur Pulses: PRESENT: normal dorsalis pedis pul, +2 pedal pulses bilateral Vascular exam: PRESENT: normal capillary refill GI/Abdominal exam: PRESENT: normal bowel sounds, soft. ABSENT: distended, guarding, mass, organolmegaly, rebound, tenderness Rectal exam: PRESENT: deferred Neurological exam: PRESENT: alert, awake, oriented to person, oriented to place, oriented to time, oriented to situation, CN II-XII grossly intact. ABSENT: motor sensory deficit Psychiatric exam: PRESENT: appropriate affect, normal mood. ABSENT: homicidal ideation, suicidal ideation Skin exam: PRESENT: dry, intact, warm. ABSENT: cyanosis, rash Results Laboratory Results: 05/25/20 05:44 05/25/20 05:44 05/25/20 05/25/20 05:44 05:44 WBC 23.1 H RBC 4.56 Hgb 10.9 L Hct 35.0 L MCV 77 L MCH 23.9 L MCHC 31.1 L RDW 19.9 H Plt Count 289 Seg Neutrophils % Not Reportable Sodium 135.4 L Potassium 5.1 H Chloride 95 L Carbon Dioxide 32 H Anion Gap 8 BUN 25 H Creatinine 0.57 Est GFR ( Amer) > 60 Glucose 405 H* Calcium 10.1 05/23/20 03:55 Blood Blood Culture (PCR) - Final Staphylococcus Species 05/23/20 10:56 Clean Catch Midstream Urine Culture - Final Mixed Urogenital Tete C.albicans/C.dubliniensis 05/23/20 00:43 NT-Pro-B Natriuret Pep 352 H Impressions: Chest X-Ray 05/23/20 00:36 IMPRESSION: 1. Diffuse abnormality of the lung interstitium which appears chronic and is unchanged. 2. Possible left suprahilar lung mass versus focal area of infiltrate. This area measures 2.2 cm. If clinically indicated this could be further assessed with follow-up chest CT. 3. Persistent widening of the cardiac and mediastinal silhouette. Chest/Abdomen CTA 05/23/20 04:34 IMPRESSION: Cardiomegaly with no aortic dissection or aneurysm. No pulmonary embolus. Minimal left basilar presumed pneumonia with several left upper lobe pulmonary nodules which are new. Extensive nodularity of the liver. Underlying metastatic disease needs to be excluded. 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 Is this a current diagnosis for this admission?: Yes (6) Elevated liver enzymes Is this a current diagnosis for this admission?: Yes (7) Congestive heart failure Qualifiers: Heart failure type: diastolic Heart failure chronicity: chronic Qualified Code(s): I50.32 - Chronic diastolic (congestive) heart failure Is this a current diagnosis for this admission?: Yes - Time Time Spent with patient: 15-24 minutes Level of Care: IMCU Medications reviewed and adjusted accordingly: Yes Anticipated discharge: Home with Homehealth Anticipated DC Timeframe: within 48 hours - Plan Summary Plan Summary: We discontinued the IV steroids start on a p.o.'s prednisone Continues the CPAP at night Try to wean off from the oxygen's
--- NOTE | 2020-05-25 14:27 | Progress Note ---
Provider Note Provider Note: CARDIOLOGY PROGRESS NOTE by Dr. Alee Bradley on 05/25/2020. SUBJECTIVE: The patient states his shortness of breath is slightly improved. She continues to have orthopnea. She continues to use nasal BiPAP. There is no chest pain discomfort. There is no PND. There is no arrhythmias seen on the monitor. There is no leg edema. There is no cough wheezing or sputum production. PHYSICAL EXAMINATION: The patient is moderately obese. In no acute distress although on nasal BiPAP. Selected Entries 05/25/20 05/25/20 05/25/20 08:28 15:34 16:05 Temperature 97.9 F Temperature Oral Source Pulse Rate 99 Respiratory 23 H 20 Rate Blood Pressure 129/90 H 122/84 Blood Pressure 96 Mean BP Location Right Arm Right Arm BP Position Supine O2 Sat by Pulse 100 95 Oximetry Fraction of 70 Inspired Oxygen (FIO2) Oxygen Flow 40 Rate Oxygen Delivery Bipap Method HEAD: Atraumatic normocephalic. EYES: Pupils are equal round regular reactive light accommodation. Extraocular movements are normal. There is no conjunctival pallor. There is no scleral icterus. ENT is negative. Patient has a nasal BiPAP. MOUTH: Mucous membranes of mouth are moist. Tongue is moist. There is no ulcers. There is no bleeding from the gums. THROAT: There is no redness of the oropharynx. There is no exudates. SKIN: There is no skin rashes. There is no petechia or ecchymosis. There is no skin lesions. NECK: Is supple. There is is mild JVD. Carotids are equal there is no bruit. There is no lymphadenopathy. There is no carotid bruit there is no accessory muscles of respiration use. Trachea central. LUNGS: Show diminished air entry and prolonged expiration. There are scattered rhonchi. There is no wheezing or crackles or rales. There is no rales of CHF. HEART: S1-S2 is heard. There is tachycardia present. There is no S3 gallop. There is no finger. There is no rub. Systolic murmur left sternal border and the apex. There is no rub. ABDOMEN: Soft. Nontender mildly obese. There is truncal obesity present. There is no hepatosplenomegaly. Bowel sounds are well heard. EXTREMITIES: Femorals are diminished. There is no femoral bruits. Leg pulses slightly diminished. There is trace pedal edema bilaterally. There is no DVT or cellulitis. There is no calf tenderness. There is no cyanosis or clubbing. Capillary refill is normal. 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 Labs- All tests 24 hr 05/24/20 05/25/20 05/25/20 21:38 05:44 05:44 WBC 23.1 H RBC 4.56 Hgb 10.9 L Hct 35.0 L MCV 77 L MCH 23.9 L MCHC 31.1 L RDW 19.9 H Plt Count 289 Lymph % (Auto) Not Reportable [place] % (Auto) Not Reportable Eos % (Auto) Not Reportable Baso % (Auto) Not Reportable Absolute Neuts (auto) Not Reportable Absolute Lymphs (auto) Not Reportable Absolute Monos (auto) Not Reportable Absolute Eos (auto) Not Reportable Absolute Basos (auto) Not Reportable Total Counted 100 Seg Neutrophils % Not Reportable Seg Neuts % (Manual) 82 H Lymphocytes % (Manual) 8 L Monocytes % (Manual) 10 Eosinophils % (Manual) 0 Basophils % (Manual) 0 Abs Neuts (Manual) 18.9 H Abs Lymphs (Manual) 1.8 Abs Monocytes (Manual) 2.3 H Absolute Eos (Manual) 0.0 Abs Basophils (Manual) 0.0 Large Platelets PRESENT Platelet Comment ADEQUATE Anisocytosis 2+ Microcytosis SLIGHT Tear Drop Cells SLIGHT Ovalocytes SLIGHT Sodium 135.4 L Potassium 5.1 H Chloride 95 L Carbon Dioxide 32 H Anion Gap 8 BUN 25 H Creatinine 0.57 Est GFR ( Amer) > 60 Est GFR (MDRD) Non-Af > 60 Glucose 405 H* POC Glucose 331 H Calcium 10.1 05/25/20 05/25/20 05/25/20 08:28 11:45 16:20 WBC RBC Hgb Hct MCV MCH MCHC RDW Plt Count Lymph % (Auto) [place] % (Auto) Eos % (Auto) Baso % (Auto) Absolute Neuts (auto) Absolute Lymphs (auto) Absolute Monos (auto) Absolute Eos (auto) Absolute Basos (auto) Total Counted Seg Neutrophils % Seg Neuts % (Manual) Lymphocytes % (Manual) Monocytes % (Manual) Eosinophils % (Manual) Basophils % (Manual) Abs Neuts (Manual) Abs Lymphs (Manual) Abs Monocytes (Manual) Absolute Eos (Manual) Abs Basophils (Manual) Large Platelets Platelet Comment Anisocytosis Microcytosis Tear Drop Cells Ovalocytes Sodium Potassium Chloride Carbon Dioxide Anion Gap BUN Creatinine Est GFR ( Amer) Est GFR (MDRD) Non-Af Glucose POC Glucose 371 H 386 H 359 H Calcium Chest X-Ray 05/23/20 00:36 IMPRESSION: 1. Diffuse abnormality of the lung interstitium which appears chronic and is unchanged. 2. Possible left suprahilar lung mass versus focal area of infiltrate. This area measures 2.2 cm. If clinically indicated this could be further assessed with follow-up chest CT. 3. Persistent widening of the cardiac and mediastinal silhouette. Chest/Abdomen CTA 05/23/20 04:34 IMPRESSION: Cardiomegaly with no aortic dissection or aneurysm. No pulmonary embolus. Minimal left basilar presumed pneumonia with several left upper lobe pulmonary nodules which are new. Extensive nodularity of the liver. Underlying metastatic disease needs to be excluded. IMPRESSION/RECOMMENDATION: 1. Shortness of breath and dyspnea on exertion to rest shortness of breath: This is secondary to patient's pulmonary hypertension and acute exacerbation of sarcoidosis especially of the lung. 2. Severe pulmonary hypertension: Would recommend increase the patient's amlodipine. Continue steroids high-dose. Patient tolerated losartan 25 mg p.o. daily. Will increase to 25 mg p.o. every 12 hours. 3. Sarcoidosis with acute flareup. There is involvement of the lung and liver from the sarcoid. Would recommend high-dose steroids. 4. Hypertension:: Blood pressure seems to be well controlled. 5. Diabetes mellitus. Continue antidiabetic treatment and Accu-Cheks serially. Patient blood sugar seems to be elevated due to probably steroids. 6. 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 7. There seems to be no evidence of left-ventricular compromise in the form of sarcoid induced cardiomyopathy during his acute sarcoid flareup. Medications reviewed. Medications adjusted. Medical regimen and management plan discussed with Dr. Vale. Medical decision making is of high complexity, especially due to adjusting his medication.. 40 minutes spent as patient more than 50% of time spent in direct patient care. Discussed echo findings with the patient and with Dr. Vale. Note pulmonology is on consult his consult is appreciated. Will follow
[2020-05-25] MEDS: LOSARTAN POTASSIUM 25 MG TABLET PO SCH (22:57)
[2020-05-26] MEDS: LEVALBUTEROL HCL NEB 1.25 MG/3 ML AMPUL NEB SCH ×6 (00:30→20:45)
[2020-05-26] MEDS: AZITHROMYCIN 250 MG in DEXTROSE 5%-WATER 250 ML IV SCH (06:11)
[2020-05-26 06:45] LABS: ABSOLUTE BASOPHILS # (AUTO) 0.1 10^3/uL (0.0-0.2); ABSOLUTE LYMPHOCYTES (AUTO) 1.6 10^3/uL (0.5-4.7); ABSOLUTE MONOCYTES (AUTO) 1.9 10^3/uL (0.1-1.4); ABSOLUTE NEUT (AUTO) 14.3 10^3/uL (1.7-8.2); BASOPHILS % (AUTO) 0.4 % (0-2); EOSINOPHILS % (AUTO) 0.1 % (0-6); HEMATOCRIT 33.3 % (36.0-47.0); HEMOGLOBIN 10.8 g/dL (12.0-15.5); MEAN CORPUSCULAR HEMOGLOBIN 24.4 pg (27.0-33.4); MEAN CORPUSCULAR HGB CONC 32.3 g/dL (32.0-36.0); MEAN CORPUSCULAR VOLUME 76 fl (80-97); MONOCYTES % (AUTO) 10.5 % (3-13); PLATELET COUNT 247 10^3/uL (150-450); RED CELL DISTRIBUTION WIDTH 19.7 % (11.5-14.0); TOTAL CELLS COUNTED % (AUTO) 100 %; WHITE BLOOD COUNT 17.9 10^3/uL (4.0-10.5)
[2020-05-26 07:10] LABS: ANION GAP 10 (5-19); BLOOD UREA NITROGEN 23 mg/dL (7-20); CALCIUM 9.6 mg/dL (8.4-10.2); CARBON DIOXIDE 33 mmol/L (22-30); CHLORIDE 94 mmol/L (98-107); GLUCOSE 372 mg/dL (75-110); POTASSIUM 4.7 mmol/L (3.6-5.0)
[2020-05-26] MEDS: BUDESONIDE NEB 0.5 MG/2 ML AMPUL NEB SCH ×2 (08:26→20:45)
[2020-05-26] MEDS: METFORMIN HCL 500 MG TABLET PO SCH ×2 (08:30→17:24)
[2020-05-26] MEDS: SITAGLIPTIN PHOSPHATE 50 MG TABLET PO SCH ×2 (08:30→17:24)
[2020-05-26] MEDS: INSULIN LISPRO 100 UNIT/ML 3 ML VIAL SUBCUT SCH ×4 (08:43→23:02)
--- NOTE | 2020-05-26 09:58 | PDOC PROGRESS REPORT ---
Subjective Progress Note for:: 05/26/20 Subjective:: Patient is currently doing well Patient is denied any chest pain no short of breath Patient's blood sugar was elevated most likely due to the steroid Reason For Visit: RESPIRATORY FAILURE,PNEUMONIA Physical Exam Vital Signs: Temp Pulse Resp BP Pulse Ox 97.4 F 81 18 130/78 H 94 05/26/20 08:21 05/26/20 08:30 05/26/20 08:30 05/26/20 08:21 05/26/20 08:30 Intake & Output 05/25/20 05/26/20 05/27/20 06:59 06:59 06:59 Intake Total 722 2060 Output Total 1400 2100 Balance -678 -40 Weight 108.4 kg General appearance: PRESENT: no acute distress, well-developed, well-nourished Head exam: PRESENT: atraumatic, normocephalic Eye exam: PRESENT: conjunctiva pink, EOMI, PERRLA. ABSENT: scleral icterus Ear exam: PRESENT: normal external ear exam Mouth exam: PRESENT: moist, tongue midline Neck exam: PRESENT: full ROM. ABSENT: carotid bruit, JVD, lymphadenopathy, thyromegaly Cardiovascular exam: PRESENT: RRR. ABSENT: diastolic murmur, rubs, systolic murmur Pulses: PRESENT: normal dorsalis pedis pul, +2 pedal pulses bilateral Vascular exam: PRESENT: normal capillary refill GI/Abdominal exam: PRESENT: normal bowel sounds, soft. ABSENT: distended, guarding, mass, organolmegaly, rebound, tenderness Rectal exam: PRESENT: deferred Musculoskeletal exam: PRESENT: ambulatory Neurological exam: PRESENT: alert, awake, oriented to person, oriented to place, oriented to time, oriented to situation, CN II-XII grossly intact. ABSENT: motor sensory deficit Psychiatric exam: PRESENT: appropriate affect, normal mood. ABSENT: homicidal ideation, suicidal ideation Skin exam: PRESENT: dry, intact, warm. ABSENT: cyanosis, rash Results Laboratory Results: 05/26/20 05:56 05/26/20 05:56 05/26/20 05/26/20 05:56 05:56 WBC 17.9 H RBC 4.40 Hgb 10.8 L Hct 33.3 L MCV 76 L MCH 24.4 L MCHC 32.3 RDW 19.7 H Plt Count 247 Seg Neutrophils % 80.0 H Sodium 136.8 L Potassium 4.7 Chloride 94 L Carbon Dioxide 33 H Anion Gap 10 BUN 23 H Creatinine 0.57 Est GFR ( Amer) > 60 Glucose 372 H Calcium 9.6 05/23/20 03:55 Blood Blood Culture (PCR) - Final Staphylococcus Species 05/23/20 00:43 NT-Pro-B Natriuret Pep 352 H Impressions: Chest X-Ray 05/23/20 00:36 IMPRESSION: 1. Diffuse abnormality of the lung interstitium which appears chronic and is unchanged. 2. Possible left suprahilar lung mass versus focal area of infiltrate. This area measures 2.2 cm. If clinically indicated this could be further assessed with follow-up chest CT. 3. Persistent widening of the cardiac and mediastinal silhouette. Chest/Abdomen CTA 05/23/20 04:34 IMPRESSION: Cardiomegaly with no aortic dissection or aneurysm. No pulmonary embolus. Minimal left basilar presumed pneumonia with several left upper lobe pulmonary nodules which are new. Extensive nodularity of the liver. Underlying metastatic disease needs to be excluded. 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 Is this a current diagnosis for this admission?: Yes (6) Elevated liver enzymes Is this a current diagnosis for this admission?: Yes (7) Congestive heart failure Qualifiers: Heart failure type: diastolic Heart failure chronicity: chronic Qualified Code(s): I50.32 - Chronic diastolic (congestive) heart failure Is this a current diagnosis for this admission?: Yes - Time Time Spent with patient: 15-24 minutes Level of Care: IMCU Medications reviewed and adjusted accordingly: Yes Anticipated discharge: Home, Home with Homehealth Anticipated DC Timeframe: within 24 hours - Plan Summary Plan Summary: Continues to current medications
[2020-05-26] MEDS: ENOXAPARIN SODIUM INJ 40 MG/0.4 ML DISP.SYRIN SUBCUT SCH (10:42)
[2020-05-26] MEDS: CEFEPIME HCL 2 GM in DEXTROSE 5%-WATER 50 ML IV SCH ×2 (10:48→21:50)
[2020-05-26] MEDS: AMLODIPINE BESYLATE 5 MG TABLET PO SCH ×2 (10:48→21:49)
[2020-05-26] MEDS: FAMOTIDINE 20 MG TABLET PO SCH ×2 (10:49→21:49)
[2020-05-26] MEDS: PREDNISONE 20 MG TABLET PO SCH ×2 (10:49→17:27)
[2020-05-26] MEDS: LOSARTAN POTASSIUM 25 MG TABLET PO SCH ×2 (10:49→21:50)
[2020-05-26] MEDS ORDERED: PHENOL/SODIUM PHENOLATE 100 SPRAY/177 ML BOTTLE PO PRN (11:11)
--- NOTE | 2020-05-26 12:21 | Progress Note ---
Provider Note Provider Note: CARDIOLOGY PROGRESS NOTE by Dr. Alee Michael on 05/26/2020. SUBJECTIVE: The patient still complains of shortness of breath. There is still some orthopnea but no PND. She is still on the nasal BiPAP. She denies any chest pain discomfort. There is no PND. There is no arrhythmias seen on the monitor. She is tolerating losartan 25 mg p.o. every 12 hours. Will increase it. The patient's RAYNA level came back at 48 which is midlevel of normal range. PHYSICAL EXAMINATION: The patient moderately obese. In mild respiratory distress. She is well-groomed. Selected Entries 05/26/20 05/26/20 15:11 16:07 Temperature 98.1 F Temperature Oral Source Pulse Rate 93 Respiratory 21 H Rate Blood Pressure 121/65 Blood Pressure 83 Mean BP Location Left Arm BP Position Supine O2 Sat by Pulse 91 L Oximetry Oxygen Flow On nasal BiPAP 40 Rate HEAD: Atraumatic normocephalic. EYES: Pupils are equal round regular reactive light accommodation. Extraocular movements are normal. There is no conjunctival pallor. There is no scleral icterus. ENT is negative. Patient has a nasal BiPAP. MOUTH: Mucous membranes of mouth are moist. Tongue is moist. There is no ulcers. There is no bleeding from the gums. THROAT: There is no redness of the oropharynx. There is no exudates. SKIN: There is no skin rashes. There is no petechia or ecchymosis. There is no skin lesions. NECK: Is supple. There is is mild JVD. Carotids are equal there is no bruit. There is no lymphadenopathy. There is no carotid bruit there is no accessory muscles of respiration use. Trachea central. LUNGS: Show diminished air entry and prolonged expiration. There are scattered rhonchi. There is no wheezing or crackles or rales. There is no rales of CHF. HEART: S1-S2 is heard. There is tachycardia present. There is no S3 gallop. There is no finger. There is no rub. Systolic murmur left sternal border and the apex. There is no rub. ABDOMEN: Soft. Nontender mildly obese. There is truncal obesity present. There is no hepatosplenomegaly. Bowel sounds are well heard. EXTREMITIES: Femorals are diminished. There is no femoral bruits. Leg pulses slightly diminished. There is trace pedal edema bilaterally. There is no DVT or cellulitis. There is no calf tenderness. There is no cyanosis or clubbing. Capillary refill is normal. 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 Labs- All tests 24 hr 05/23/20 05/25/20 05/26/20 00:43 21:41 05:56 WBC 17.9 H RBC 4.40 Hgb 10.8 L Hct 33.3 L MCV 76 L MCH 24.4 L MCHC 32.3 RDW 19.7 H Plt Count 247 Lymph % (Auto) 9.0 L [place] % (Auto) 10.5 Eos % (Auto) 0.1 Baso % (Auto) 0.4 Absolute Neuts (auto) 14.3 H Absolute Lymphs (auto) 1.6 Absolute Monos (auto) 1.9 H Absolute Eos (auto) 0.0 Absolute Basos (auto) 0.1 Seg Neutrophils % 80.0 H Sodium Potassium Chloride Carbon Dioxide Anion Gap BUN Creatinine Est GFR ( Amer) Est GFR (MDRD) Non-Af Glucose POC Glucose 328 H Calcium Angiotensin Convert Enz 48 05/26/20 05/26/20 05/26/20 05:56 08:21 12:05 WBC RBC Hgb Hct MCV MCH MCHC RDW Plt Count Lymph % (Auto) [place] % (Auto) Eos % (Auto) Baso % (Auto) Absolute Neuts (auto) Absolute Lymphs (auto) Absolute Monos (auto) Absolute Eos (auto) Absolute Basos (auto) Seg Neutrophils % Sodium 136.8 L Potassium 4.7 Chloride 94 L Carbon Dioxide 33 H Anion Gap 10 BUN 23 H Creatinine 0.57 Est GFR ( Amer) > 60 Est GFR (MDRD) Non-Af > 60 Glucose 372 H POC Glucose 316 H 276 H Calcium 9.6 Angiotensin Convert Enz 05/26/20 16:30 WBC RBC Hgb Hct MCV MCH MCHC RDW Plt Count Lymph % (Auto) [place] % (Auto) Eos % (Auto) Baso % (Auto) Absolute Neuts (auto) Absolute Lymphs (auto) Absolute Monos (auto) Absolute Eos (auto) Absolute Basos (auto) Seg Neutrophils % Sodium Potassium Chloride Carbon Dioxide Anion Gap BUN Creatinine Est GFR ( Amer) Est GFR (MDRD) Non-Af Glucose POC Glucose 269 H Calcium Angiotensin Convert Enz Chest X-Ray 05/23/20 00:36 IMPRESSION: 1. Diffuse abnormality of the lung interstitium which appears chronic and is unchanged. 2. Possible left suprahilar lung mass versus focal area of infiltrate. This area measures 2.2 cm. If clinically indicated this could be further assessed with follow-up chest CT. 3. Persistent widening of the cardiac and mediastinal silhouette. Chest/Abdomen CTA 05/23/20 04:34 IMPRESSION: Cardiomegaly with no aortic dissection or aneurysm. No pulmonary embolus. Minimal left basilar presumed pneumonia with several left upper lobe pulmonary nodules which are new. Extensive nodularity of the liver. Underlying metastatic disease needs to be excluded. IMPRESSION/RECOMMENDATION: 1. Shortness of breath and dyspnea on exertion to rest shortness of breath: This is secondary to patient's pulmonary hypertension and acute exacerbation of sarcoidosis especially of the lung. 2. Severe pulmonary hypertension: Would recommend increase the patient's amlodipine. Continue steroids high-dose. Patient tolerated losartan 25 mg p.o. every 12 hours. Will increase to 50 mg p.o. every 12 hours. 3. Sarcoidosis with acute flareup. There is involvement of the lung and liver from the sarcoid. Would recommend high-dose steroids. 4. Hypertension:: Blood pressure seems to be well controlled. 5. Diabetes mellitus. Continue antidiabetic treatment and Accu-Cheks serially. Patient blood sugar seems to be elevated due to probably steroids. 6. 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 7. There seems to be no evidence of left-ventricular compromise in the form of sarcoid induced cardiomyopathy during his acute sarcoid flareup. Medications reviewed. Medications adjusted. Medical regimen and management plan discussed with Dr. Vale. Medical decision making is of high complexity, especially due to adjusting his medication.. 40 minutes spent as patient more than 50% of time spent in direct patient care. Discussed echo findings with the patient and with Dr. Vale. Note pulmonology is on consult his consult is appreciated. Will sign off and follow patient in the office.
[2020-05-27] MEDS: LEVALBUTEROL HCL NEB 1.25 MG/3 ML AMPUL NEB SCH ×5 (00:04→21:22)
[2020-05-27 06:36] LABS: ANION GAP 9 (5-19); BLOOD UREA NITROGEN 18 mg/dL (7-20); CALCIUM 9.5 mg/dL (8.4-10.2); CARBON DIOXIDE 36 mmol/L (22-30); CHLORIDE 94 mmol/L (98-107); GLUCOSE 256 mg/dL (75-110); POTASSIUM 4.5 mmol/L (3.6-5.0)
[2020-05-27] MEDS: AZITHROMYCIN 250 MG in DEXTROSE 5%-WATER 250 ML IV SCH (06:50)
[2020-05-27] MEDS: BUDESONIDE NEB 0.5 MG/2 ML AMPUL NEB SCH ×2 (08:28→21:22)
--- NOTE | 2020-05-27 09:31 | PDOC PROGRESS REPORT ---
Subjective Progress Note for:: 05/27/20 Subjective:: Patient is currently doing well She denied any chest pain no short of breath No fever no chills According to the nursing staff patient is very noncompliance of the diet and family brought a lot of sugary food We will get the diabetic education today Discussed with the Dr. Guardado regarding ongoing sarcoid problems Reason For Visit: RESPIRATORY FAILURE,PNEUMONIA Physical Exam Vital Signs: Temp Pulse Resp BP Pulse Ox 97.4 F 71 18 141/89 H 91 L 05/27/20 04:23 05/27/20 08:28 05/27/20 08:28 05/27/20 04:23 05/27/20 08:28 Intake & Output 05/26/20 05/27/20 05/28/20 06:59 06:59 06:59 Intake Total 2059 2179 Output Total 2099 1999 Balance -40 180 Weight 108.4 kg 113.6 kg General appearance: PRESENT: no acute distress, well-developed, well-nourished Head exam: PRESENT: atraumatic, normocephalic Eye exam: PRESENT: conjunctiva pink, EOMI, PERRLA. ABSENT: scleral icterus Ear exam: PRESENT: normal external ear exam Mouth exam: PRESENT: moist, tongue midline Neck exam: PRESENT: full ROM. ABSENT: carotid bruit, JVD, lymphadenopathy, thyromegaly Respiratory exam: PRESENT: clear to auscultation lien Cardiovascular exam: PRESENT: RRR. ABSENT: diastolic murmur, rubs, systolic murmur Pulses: PRESENT: normal dorsalis pedis pul, +2 pedal pulses bilateral Vascular exam: PRESENT: normal capillary refill GI/Abdominal exam: PRESENT: normal bowel sounds, soft. ABSENT: distended, guarding, mass, organolmegaly, rebound, tenderness Rectal exam: PRESENT: deferred Neurological exam: PRESENT: alert, awake, oriented to person, oriented to place, oriented to time, oriented to situation, CN II-XII grossly intact. ABSENT: motor sensory deficit Psychiatric exam: PRESENT: appropriate affect, normal mood. ABSENT: homicidal ideation, suicidal ideation Skin exam: PRESENT: dry, intact, warm. ABSENT: cyanosis, rash Results Laboratory Results: 05/26/20 05:56 05/27/20 05:50 05/27/20 05:50 Sodium 138.7 Potassium 4.5 Chloride 94 L Carbon Dioxide 36 H Anion Gap 9 BUN 18 Creatinine 0.49 L Est GFR ( Amer) > 60 Glucose 256 H Calcium 9.5 05/23/20 03:55 Blood Blood Culture (PCR) - Final Staphylococcus Species 05/23/20 03:55 Blood Blood Culture - Final [employer] Staphylococcus Epidermidis 05/23/20 00:43 NT-Pro-B Natriuret Pep 352 H Impressions: Chest X-Ray 05/23/20 00:36 IMPRESSION: 1. Diffuse abnormality of the lung interstitium which appears chronic and is unchanged. 2. Possible left suprahilar lung mass versus focal area of infiltrate. This area measures 2.2 cm. If clinically indicated this could be further assessed with follow-up chest CT. 3. Persistent widening of the cardiac and mediastinal silhouette. Chest/Abdomen CTA 05/23/20 04:34 IMPRESSION: Cardiomegaly with no aortic dissection or aneurysm. No pulmonary embolus. Minimal left basilar presumed pneumonia with several left upper lobe pulmonary nodules which are new. Extensive nodularity of the liver. Underlying metastatic disease needs to be excluded. Assessment & Plan - Diagnosis (1) Acute on chronic respiratory failure with hypoxia Is this a current diagnosis for this admission?: Yes Plan: Try to wean off from the oxygen as patient normally require 5 to 6 L at home (2) Pneumonia Qualifiers: Lung location: unspecified part of lung Is this a current diagnosis for this admission?: Yes Plan: DC the IV antibiotic start oral doxycycline (3) Sarcoidosis of lung Is this a current diagnosis for this admission?: Yes Plan: Continues to p.o. 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 insulin use: without shelter use Is this a current diagnosis for this admission?: Yes Plan: We will get the dietary educations Continues to Janumet and sliding scale (6) Elevated liver enzymes Is this a current diagnosis for this admission?: Yes (7) Congestive heart failure Qualifiers: Heart failure type: diastolic Heart failure chronicity: chronic Qualified Code(s): I50.32 - Chronic diastolic (congestive) heart failure Is this a current diagnosis for this admission?: Yes Plan: Currently all stable - Time Time Spent with patient: 15-24 minutes Level of Care: IMCU Medications reviewed and adjusted accordingly: Yes Anticipated discharge: Home with Homehealth Anticipated DC Timeframe: within 24 hours - Plan Summary Plan Summary: Continues to current medications
[2020-05-27] MEDS: PREDNISONE 20 MG TABLET PO SCH ×2 (10:55→17:29)
[2020-05-27] MEDS: FAMOTIDINE 20 MG TABLET PO SCH ×2 (10:55→21:21)
[2020-05-27] MEDS: ENOXAPARIN SODIUM INJ 40 MG/0.4 ML DISP.SYRIN SUBCUT SCH (10:56)
[2020-05-27] MEDS: METFORMIN HCL 500 MG TABLET PO SCH ×2 (10:56→17:30)
[2020-05-27] MEDS: AMLODIPINE BESYLATE 5 MG TABLET PO SCH ×2 (10:56→21:21)
[2020-05-27] MEDS: SITAGLIPTIN PHOSPHATE 50 MG TABLET PO SCH ×2 (10:56→17:30)
[2020-05-27] MEDS: DOXYCYCLINE HYCLATE 100 MG TABLET PO SCH ×2 (10:56→21:26)
[2020-05-27] MEDS: LOSARTAN POTASSIUM 25 MG TABLET PO SCH ×2 (10:58→21:23)
--- NOTE | 2020-05-27 13:10 | PDOC PROGRESS REPORT ---
Subjective Progress Note for:: 05/27/20 Subjective:: I feel much better today Reason For Visit: RESPIRATORY FAILURE,PNEUMONIA Physical Exam Vital Signs: Temp Pulse Resp BP Pulse Ox 97.4 F 71 18 141/89 H 91 L 05/27/20 04:23 05/27/20 08:28 05/27/20 08:28 05/27/20 04:23 05/27/20 08:28 Intake & Output 05/26/20 05/27/20 05/28/20 06:59 06:59 06:59 Intake Total 2059 2179 Output Total 2099 1999 Balance -40 180 Weight 108.4 kg 113.6 kg General appearance: PRESENT: no acute distress, cooperative, disheveled, morbidly obese, well-developed, well-nourished Head exam: PRESENT: atraumatic, normocephalic Eye exam: PRESENT: conjunctiva pale, EOMI. ABSENT: nystagmus, periorbital swelling, scleral icterus Mouth exam: PRESENT: moist, neck supple, tongue midline Neck exam: ABSENT: carotid bruit, full ROM, JVD, lymphadenopathy, meningismus, tenderness, thyromegaly, tracheal deviation, tracheostomy, other Respiratory exam: PRESENT: decreased breath sounds, prolonged expiratory phas, symmetrical, unlabored. ABSENT: rales, retraction, rhonchi, stridor, tachypnea Cardiovascular exam: PRESENT: RRR, +S1, +S2 Pulses: PRESENT: normal radial pulses GI/Abdominal exam: PRESENT: soft. ABSENT: distended, guarding, mass, rebound, tenderness Extremities exam: PRESENT: full ROM. ABSENT: calf tenderness, clubbing, joint swelling, tenderness Musculoskeletal exam: ABSENT: deformity, dislocation Neurological exam: PRESENT: alert, awake Psychiatric exam: PRESENT: appropriate affect Skin exam: PRESENT: dry, warm Results Laboratory Results: 05/26/20 05:56 05/27/20 05:50 05/27/20 05:50 Sodium 138.7 Potassium 4.5 Chloride 94 L Carbon Dioxide 36 H Anion Gap 9 BUN 18 Creatinine 0.49 L Est GFR ( Amer) > 60 Glucose 256 H Calcium 9.5 05/23/20 03:55 Blood Blood Culture (PCR) - Final Staphylococcus Species 05/23/20 03:55 Blood Blood Culture - Final [employer] Staphylococcus Epidermidis 05/23/20 00:43 NT-Pro-B Natriuret Pep 352 H Impressions: Chest X-Ray 05/23/20 00:36 IMPRESSION: 1. Diffuse abnormality of the lung interstitium which appears chronic and is unchanged. 2. Possible left suprahilar lung mass versus focal area of infiltrate. This area measures 2.2 cm. If clinically indicated this could be further assessed with follow-up chest CT. 3. Persistent widening of the cardiac and mediastinal silhouette. Chest/Abdomen CTA 05/23/20 04:34 IMPRESSION: Cardiomegaly with no aortic dissection or aneurysm. No pulmonary embolus. Minimal left basilar presumed pneumonia with several left upper lobe pulmonary nodules which are new. Extensive nodularity of the liver. Underlying metastatic disease needs to be excluded. Assessment & Plan - Diagnosis (1) Acute on chronic respiratory failure with hypoxia Is this a current diagnosis for this admission?: Yes Plan: Significantly improved (2) Sarcoidosis of lung Is this a current diagnosis for this admission?: Yes Plan: Suggest weaning prednisone from 30 mg a day x7 days to 20 mg a day x7 days then resuming 10 mg a day (3) Diabetes Qualifiers: Diabetes mellitus type: type 2 Is this a current diagnosis for this admission?: No (4) Obesity hypoventilation syndrome Is this a current diagnosis for this admission?: Yes Plan: Labs- All tests 24 hr 05/23/20 02:10 ABG pH 7.35 ABG pCO2 56.8 H ABG pO2 85.0 ABG O2 Saturation 95.7 FiO2 10L - Time Time Spent with patient: 30 Time Spent with patient: 25-34 minutes
[2020-05-27] MEDS: INSULIN LISPRO 100 UNIT/ML 3 ML VIAL SUBCUT SCH ×4 (17:29→21:20)
[2020-05-28] MEDS: LEVALBUTEROL HCL NEB 1.25 MG/3 ML AMPUL NEB SCH ×3 (02:05→14:01)
[2020-05-28 06:50] LABS: HEMATOCRIT 34.7 % (36.0-47.0); HEMOGLOBIN 11.2 g/dL (12.0-15.5); MEAN CORPUSCULAR HEMOGLOBIN 24.4 pg (27.0-33.4); MEAN CORPUSCULAR HGB CONC 32.3 g/dL (32.0-36.0); MEAN CORPUSCULAR VOLUME 76 fl (80-97); PLATELET COUNT 275 10^3/uL (150-450); RED CELL DISTRIBUTION WIDTH 20.1 % (11.5-14.0); WHITE BLOOD COUNT 15.5 10^3/uL (4.0-10.5)
[2020-05-28 07:11] LABS: ANION GAP 7 (5-19); BLOOD UREA NITROGEN 13 mg/dL (7-20); CALCIUM 9.3 mg/dL (8.4-10.2); CARBON DIOXIDE 39 mmol/L (22-30); CHLORIDE 91 mmol/L (98-107); GLUCOSE 239 mg/dL (75-110); POTASSIUM 4.6 mmol/L (3.6-5.0)
[2020-05-28 07:28] LABS: ABSOLUTE MONOCYTES # (MANUAL) 0.8 10^3/uL (0.1-1.4); BASOPHILS % (MANUAL) 0 % (0-2); EOSINOPHILS % (MANUAL) 0 % (0-6); LYMPHOCYTES % (MANUAL) 13 % (13-45); MONOCYTES % (MANUAL) 5 % (3-13); SEGMENTED NEUTROPHILS % (MAN) 82 % (42-78); TOTAL CELLS COUNTED 100
[2020-05-28 07:35] LABS: PLATELET COMMENT ADEQUATE; SPHEROCYTES SLIGHT; TARGET CELLS 2+; TEAR DROP CELLS 1+
[2020-05-28] MEDS: BUDESONIDE NEB 0.5 MG/2 ML AMPUL NEB SCH (08:35)
[2020-05-28] MEDS: METFORMIN HCL 500 MG TABLET PO SCH (08:36)
[2020-05-28] MEDS: INSULIN LISPRO 100 UNIT/ML 3 ML VIAL SUBCUT SCH ×2 (08:36→12:22)
[2020-05-28] MEDS: SITAGLIPTIN PHOSPHATE 50 MG TABLET PO SCH (08:36)
[2020-05-28] MEDS: FAMOTIDINE 20 MG TABLET PO SCH (10:06)
[2020-05-28] MEDS: LOSARTAN POTASSIUM 25 MG TABLET PO SCH (10:06)
[2020-05-28] MEDS: DOXYCYCLINE HYCLATE 100 MG TABLET PO SCH (10:06)
[2020-05-28] MEDS: AMLODIPINE BESYLATE 5 MG TABLET PO SCH (10:07)
[2020-05-28] MEDS: PREDNISONE 20 MG TABLET PO SCH (10:07)
[2020-05-28] MEDS: ENOXAPARIN SODIUM INJ 40 MG/0.4 ML DISP.SYRIN SUBCUT SCH (10:07)
--- NOTE | 2020-05-28 10:19 | PDOC DISCHARGE SUMMARY ---
Impression - Admit/DC Date/PCP Admission Date/Primary Care Provider: 05/23/20 05:55 SHELDON WILHELM Discharge Date: 05/28/20 - Discharge Diagnosis (1) Acute on chronic respiratory failure with hypoxia Is this a current diagnosis for this admission?: Yes (2) Pneumonia Is this a current diagnosis for this admission?: Yes (3) Sarcoidosis of lung Is this a current diagnosis for this admission?: Yes (4) Hypertension Is this a current diagnosis for this admission?: Yes (5) T2DM (type 2 diabetes mellitus) Is this a current diagnosis for this admission?: Yes (6) Elevated liver enzymes Is this a current diagnosis for this admission?: Yes (7) Congestive heart failure Is this a current diagnosis for this admission?: Yes - Additional Information Discharge Diet: Diabetic Discharge Activity: Activity As Tolerated Referrals: BOB CACERES PA [Primary Care Provider] - 05/29/20 11:00 am DARWIN SANCHEZ MD [ACTIVE STAFF] - 06/04/20 10:30 am DAVE PALACIO MD [ACTIVE STAFF] - 06/04/20 1:00 pm Prescriptions: Losartan Potassium [Cozaar 25 mg Tablet] 50 mg PO Q12 #60 tablet Prednisone [Deltasone 10 mg Tablet] 10 mg PO ASDIR PRN #20 tablet PRN Reason: Doxycycline Hyclate [Vibramycin 100 mg Tablet] 100 mg PO Q12 #20 tablet Home Medications: Amlodipine Besylate [Norvasc 5 mg Tablet] 5 mg PO DAILY 07/27/19 Sitagliptin Phos/Metformin HCl [Janumet 50-1,000 mg Tablet] 1 tab PO BIDBS 07/27/19 Budesonide/Formoterol Fumarate [Symbicort HFA 160-4.5 mcg Inhaler 6 gm] 2 puff IH Q12 10/30/19 Albuterol Sulfate [Albuterol Sulfate Hfa] 2 puff IH QIDP PRN 05/23/20 Furosemide [Lasix 40 mg Tablet] 40 mg PO QAM 05/23/20 Doxycycline Hyclate [Vibramycin 100 mg Tablet] 100 mg PO Q12 #20 tablet 05/28/20 Losartan Potassium [Cozaar 25 mg Tablet] 50 mg PO Q12 #60 tablet 05/28/20 Prednisone [Deltasone 10 mg Tablet] 10 mg PO ASDIR PRN #20 tablet 05/28/20 Prednisone [Deltasone 20 mg Tablet] 15 mg PO BID #0 tablet 05/28/20 History of Present Illiness History of Present Illness: TRE WARREN is a 44 year old female Who is a 44-year-old female with a very extensive history of the sarcoidosis with significant history of the chronic respiratory failure on 8 L nasal cannula history of the heart failure and a history of the 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 Ziegler as an outpatient for the sarcoidosis of the lung and the referral to the [facility] for possible transplant and also see Dr. Palacio as outpatient as per the heart failure and Dr. Thompson for the liver disease came to the emergency departments by EMS because of the increasing the shortness of the breath for the last 2 days and increasing more cough Patient is denied any fever no chills Patient's denied any contact with any Covid Patients denied any chest pain In the emergency department patient's for the high flow oxygen's patient's pH was all normal patient's respiratory rate was 42 and heart rate was elevated initially patient was try to put in the ICU with the jig builder tatianna nguyen ed for ICU criteria at this point When I saw the patient in the ER patient is alert awake oriented x4 currently on high flow oxygen's no distressed Patient's denied any chest pain Denied any shortness of the breath with a high flow oxygen's Patient CT angiogram was negative for any PE Patient is currently receiving the Solu-Medrol IV and IV antibiotic Due to the ongoing pandemic we will check the Covid test Patient at this point remaining in the [facility] Hospital Course Hospital Course: This is a 44-year-old female with a significant history of the chronic respiratory failure history of the sarcoidosis heart failure came to the emergency department increasing shortness of the breath and the cough Patient diagnosed with the pneumonia and patient Covid test was negative Patient CT angiogram was negative for PE, nodules from the sarcoid and also some nodules in the liver which is patient have a persistent with this adequate issues Patient is seen by the cardiology Dr. Pringle the echocardiogram was all stable Patient also seen by the pulmonary Dr. Sanchez Patient seen initially per the high flow oxygen and CPAP at night back to the patient 6 to 7 L oxygen at home Patient is otherwise Doing well His blood sugar was elevated due to the IV steroid coming down and noncompliance of the diet Discussed with the patient about to sliding scale at home patient do not want to take any insulin will continues the patient's current medications Patient is currently on a tapering dose of the steroid and normally patient said that at home when she is taking the 20 mg steroid usually blood sugar running in the 100 range Patient otherwise back to the baseline patient also have appointment to see a CurseenAnd Dr. Pringle Patient also have appointments [facility] for the lung Physical Exam Vital Signs: Temp Pulse Resp BP Pulse Ox 97.3 F 68 20 134/87 H 100 05/28/20 07:52 05/28/20 07:52 05/28/20 07:52 05/28/20 07:52 05/28/20 07:52 Intake & Output 05/27/20 05/28/20 05/29/20 06:59 06:59 06:59 Intake Total 2180 2120 Output Total 1999 1700 Balance 180 420 Weight 113.6 kg 108.4 kg General appearance: PRESENT: no acute distress, well-developed, well-nourished Head exam: PRESENT: atraumatic, normocephalic Eye exam: PRESENT: conjunctiva pink, EOMI, PERRLA. ABSENT: scleral icterus Ear exam: PRESENT: normal external ear exam Mouth exam: PRESENT: moist, tongue midline Neck exam: ABSENT: carotid bruit, JVD, lymphadenopathy, thyromegaly Respiratory exam: PRESENT: clear to auscultation lien. ABSENT: rales, rhonchi, wheezes Cardiovascular exam: PRESENT: RRR. ABSENT: diastolic murmur, rubs, systolic murmur Pulses: PRESENT: normal dorsalis pedis pul Vascular exam: PRESENT: normal capillary refill GI/Abdominal exam: PRESENT: normal bowel sounds, soft. ABSENT: distended, guarding, mass, organolmegaly, rebound, tenderness Rectal exam: PRESENT: deferred Extremities exam: PRESENT: full ROM. ABSENT: calf tenderness, clubbing, pedal edema Neurological exam: PRESENT: alert, awake, oriented to person, oriented to place, oriented to time, oriented to situation, CN II-XII grossly intact. ABSENT: motor sensory deficit Psychiatric exam: PRESENT: appropriate affect, normal mood. ABSENT: homicidal ideation, suicidal ideation Skin exam: PRESENT: dry, intact, warm. ABSENT: cyanosis, rash Results Laboratory Results: WBC 15.5 10^3/uL (4.0-10.5) H 05/28/20 06:24 RBC 4.60 10^6/uL (3.72-5.28) 05/28/20 06:24 Hgb 11.2 g/dL (12.0-15.5) L 05/28/20 06:24 Hct 34.7 % (36.0-47.0) L 05/28/20 06:24 MCV 76 fl (80-97) L 05/28/20 06:24 MCH 24.4 pg (27.0-33.4) L 05/28/20 06:24 MCHC 32.3 g/dL (32.0-36.0) 05/28/20 06:24 RDW 20.1 % (11.5-14.0) H 05/28/20 06:24 Plt Count 275 10^3/uL (150-450) 05/28/20 06:24 Lymph % (Auto) Not Reportable 05/28/20 06:24 Maverick % (Auto) Not Reportable 05/28/20 06:24 Eos % (Auto) Not Reportable 05/28/20 06:24 Baso % (Auto) Not Reportable 05/28/20 06:24 Absolute Neuts (auto) Not Reportable 05/28/20 06:24 Absolute Lymphs (auto) Not Reportable 05/28/20 06:24 Absolute Monos (auto) Not Reportable 05/28/20 06:24 Absolute Eos (auto) Not Reportable 05/28/20 06:24 Absolute Basos (auto) Not Reportable 05/28/20 06:24 Total Counted 100 05/28/20 06:24 Seg Neutrophils % Not Reportable 05/28/20 06:24 Seg Neuts % (Manual) 82 % (42-78) H 05/28/20 06:24 Lymphocytes % (Manual) 13 % (13-45) 05/28/20 06:24 Monocytes % (Manual) 5 % (3-13) 05/28/20 06:24 Eosinophils % (Manual) 0 % (0-6) 05/28/20 06:24 Basophils % (Manual) 0 % (0-2) 05/28/20 06:24 Abs Neuts (Manual) 12.7 10^3/uL (1.7-8.2) H 05/28/20 06:24 Abs Lymphs (Manual) 2.0 10^3/uL (0.5-4.7) 05/28/20 06:24 Abs Monocytes (Manual) 0.8 10^3/uL (0.1-1.4) 05/28/20 06:24 Absolute Eos (Manual) 0.0 10^3/uL (0.0-0.6) 05/28/20 06:24 Abs Basophils (Manual) 0.0 10^3/uL (0.0-0.2) 05/28/20 06:24 Large Platelets PRESENT 05/25/20 05:44 Platelet Comment ADEQUATE 05/28/20 06:24 Polychromasia SLIGHT 05/24/20 04:35 Hypochromasia SLIGHT 05/24/20 04:35 Poikilocytosis SLIGHT 05/24/20 04:35 Anisocytosis 2+ 05/25/20 05:44 Microcytosis SLIGHT 05/25/20 05:44 Spherocytes SLIGHT 05/28/20 06:24 Target Cells 2+ 05/28/20 06:24 Tear Drop Cells 1+ 05/28/20 06:24 Ovalocytes SLIGHT 05/25/20 05:44 ESR 66 mm/hr (0-20) H 05/23/20 00:43 Carbonic Acid 1.75 mmol/L (1.05-1.35) H 05/24/20 09:50 HCO3/H2CO3 Ratio 18:1 05/24/20 09:50 ABG pH 7.36 (7.35-7.45) 05/24/20 09:50 ABG pCO2 58.1 mmHg (35-45) H 05/24/20 09:50 ABG pO2 66.6 mmHg (80-100) L 05/24/20 09:50 ABG HCO3 32.1 mmol/L (20-24) H 05/24/20 09:50 ABG Total CO2 33.9 mmol/L (21-25) H 05/24/20 09:50 ABG O2 Saturation 92.1 % (94-98) L 05/24/20 09:50 ABG Base Excess 5.2 mmol/L 05/24/20 09:50 FiO2 85% 05/24/20 09:50 Sodium 136.7 mmol/L (137-145) L 05/28/20 06:24 Potassium 4.6 mmol/L (3.6-5.0) 05/28/20 06:24 Chloride 91 mmol/L (98-107) L 05/28/20 06:24 Carbon Dioxide 39 mmol/L (22-30) H 05/28/20 06:24 Anion Gap 7 (5-19) 05/28/20 06:24 BUN 13 mg/dL (7-20) 05/28/20 06:24 Creatinine 0.46 mg/dL (0.52-1.25) L 05/28/20 06:24 Est GFR ( Amer) > 60 (>60) 05/28/20 06:24 Est GFR (MDRD) Non-Af > 60 (>60) 05/28/20 06:24 Glucose 239 mg/dL (75-110) H 05/28/20 06:24 POC Glucose 211 mg/dL (70-110) H 05/28/20 07:56 Calcium 9.3 mg/dL (8.4-10.2) 05/28/20 06:24 Total Bilirubin 0.9 mg/dL (0.2-1.3) 05/24/20 04:35 Direct Bilirubin 0.6 mg/dL (0.0-0.4) H 05/24/20 04:35 Neonat Total Bilirubin Not Reportable 05/24/20 04:35 Neonat Direct Bilirubin Not Reportable 05/24/20 04:35 Neonat Indirect Bili Not Reportable 05/24/20 04:35 AST 56 U/L (14-36) H 05/24/20 04:35 ALT 140 U/L (<35) H 05/24/20 04:35 Alkaline Phosphatase 301 U/L (38-126) H 05/24/20 04:35 C-Reactive Protein 195.3 mg/L (<10.0) H 05/23/20 00:43 NT-Pro-B Natriuret Pep 352 pg/mL (<125) H 05/23/20 00:43 Total Protein 7.5 g/dL (6.3-8.2) 05/24/20 04:35 Albumin 4.1 g/dL (3.5-5.0) 05/24/20 04:35 Angiotensin Convert Enz 48 U/L (14-82) 05/23/20 00:43 Urine Color YELLOW 05/23/20 10:56 Urine Appearance SLIGHTLY-CLOUDY 05/23/20 10:56 Urine pH 6.0 (5.0-9.0) 05/23/20 10:56 Ur Specific Preston 1.030 05/23/20 10:56 Urine Protein 100 mg/dL (NEGATIVE) H 05/23/20 10:56 Urine Glucose (UA) >=500 mg/dL (NEGATIVE) H 05/23/20 10:56 Urine Ketones 20 mg/dL (NEGATIVE) H 05/23/20 10:56 Urine Blood NEGATIVE (NEGATIVE) 05/23/20 10:56 Urine Nitrite NEGATIVE (NEGATIVE) 05/23/20 10:56 Urine Bilirubin NEGATIVE (NEGATIVE) 05/23/20 10:56 Urine Urobilinogen 2.0 mg/dL (<2.0) H 05/23/20 10:56 Ur Leukocyte Esterase NEGATIVE (NEGATIVE) 05/23/20 10:56 Urine WBC (Auto) 1 /HPF 05/23/20 10:56 Urine RBC (Auto) 14 /HPF 05/23/20 10:56 Urine Bacteria (Auto) TRACE /HPF 05/23/20 10:56 Squamous Epi Cells Auto 4 /HPF 05/23/20 10:56 Urine Mucus (Auto) RARE /LPF 05/23/20 10:56 Urine Ascorbic Acid NEGATIVE (NEGATIVE) 05/23/20 10:56 COVID-19 Source See comment 05/23/20 10:10 COVID-19 (FROYLAN) Not Detected (Not Detect) 05/23/20 10:10 05/23/20 00:43 NT-Pro-B Natriuret Pep 352 H Impressions: Chest X-Ray 05/23/20 00:36 IMPRESSION: 1. Diffuse abnormality of the lung interstitium which appears chronic and is unchanged. 2. Possible left suprahilar lung mass versus focal area of infiltrate. This area measures 2.2 cm. If clinically indicated this could be further assessed with follow-up chest CT. 3. Persistent widening of the cardiac and mediastinal silhouette. Chest/Abdomen CTA 05/23/20 04:34 IMPRESSION: Cardiomegaly with no aortic dissection or aneurysm. No pulmonary embolus. Minimal left basilar presumed pneumonia with several left upper lobe pulmonary nodules which are new. Extensive nodularity of the liver. Underlying metastatic disease needs to be excluded. Plan Time Spent: Greater than 30 Minutes - Follow in office 1 week Follow-up with the pulmonary and cardiology and patient also need to see Dr. Thompson as an outpatient Stroke Is this a Stroke Patient?: No Acute Heart Failure Is this a Heart Failure Patient?: No
[2020-05-28 15:17] VITALS: BP 131/83
== END 2020-05-28 15:56 | disposition home health service (06) | DRG 189 ==
LOC: ER 00:12 → EH 05:55 → 3N 15:38 → 3S 05-24 12:03
PROVIDERS: ADMIT Family Medicine; ATTEND Family Medicine
PROC: 5A09357 Assistance with Respiratory Ventilation, Less than 24 Consecutive Hours, Continuous Positive Airway Pressure (ICD-10-PCS; principal; 2020-05-23)
DX: J96.21 Acute and chronic respiratory failure with hypoxia (principal); J18.9 Pneumonia, unspecified organism; I50.32 Chronic diastolic (congestive) heart failure; E66.2 Morbid (severe) obesity with alveolar hypoventilation; J44.0 Chronic obstructive pulmonary disease with (acute) lower respiratory infection; D86.0 Sarcoidosis of lung; D86.89 Sarcoidosis of other sites; I27.29 Other secondary pulmonary hypertension; E11.9 Type 2 diabetes mellitus without complications; R51.9 Headache, unspecified; I11.0 Hypertensive heart disease with heart failure; R74.8 Abnormal levels of other serum enzymes; Z99.81 Dependence on supplemental oxygen; Z20.828 Contact with and (suspected) exposure to other viral communicable diseases; K21.9 Gastro-esophageal reflux disease without esophagitis; D64.9 Anemia, unspecified; Z90.710 Acquired absence of both cervix and uterus; Z79.84 Long term (current) use of oral hypoglycemic drugs; Z79.51 Long term (current) use of inhaled steroids; Z79.52 Long term (current) use of systemic steroids
CPT/HCPCS: 36415; 36600; 71045; 71275; 80048; 80053; 81001; 82164; 82803; 82962; 83880; 85025; 85652; 86140; 87040; 87077; 87086; 87150; 87186; 87635; 93005; 93010; 93306; 94640; 94660; 96365; 96367; 96375; 99285; C9803; J0456; J0692; J0696; J1650; J1815; J2060; J2930; J3490; J7030; J7060; J7512; J7614; S0028

== ENCOUNTER 2020-06-14 14:56 | Inpatient (IN) | payer MEDICARE, MEDICAID ==
[2020-06-14] MEDS ORDERED: IPRATROPIUM/ALBUTEROL 0.5-2.5 MG/3 ML AMPUL NEB ONE ×2 (15:26→16:49)
[2020-06-14] MEDS ORDERED: METHYLPREDNISOLONE INJ 125 MG/2 ML SDV IV ONE (15:26)
[2020-06-14 15:35] LABS: HEMATOCRIT 36.9 % (36.0-47.0); HEMOGLOBIN 11.9 g/dL (12.0-15.5); MEAN CORPUSCULAR HEMOGLOBIN 24.9 pg (27.0-33.4); MEAN CORPUSCULAR HGB CONC 32.1 g/dL (32.0-36.0); MEAN CORPUSCULAR VOLUME 77 fl (80-97); PLATELET COUNT 228 10^3/uL (150-450); RED BLOOD COUNT 4.77 10^6/uL (3.72-5.28); RED CELL DISTRIBUTION WIDTH 19.8 % (11.5-14.0); WHITE BLOOD COUNT 20.3 10^3/uL (4.0-10.5)
[2020-06-14 15:53] LABS: ALBUMIN 4.3 g/dL (3.5-5.0); ALKALINE PHOSPHATASE 283 U/L (38-126); ANION GAP 14 (5-19); ASPARTATE AMINO TRANSFERASE 75 U/L (14-36); BILIRUBIN,DIRECT 0.4 mg/dL (0.0-0.4); BILIRUBIN,TOTAL 1.1 mg/dL (0.2-1.3); BLOOD UREA NITROGEN 6 mg/dL (7-20); CALCIUM 9.6 mg/dL (8.4-10.2); CARBON DIOXIDE 30 mmol/L (22-30); CHLORIDE 96 mmol/L (98-107); GLUCOSE 319 mg/dL (75-110); TOTAL PROTEIN 7.6 g/dL (6.3-8.2)
--- NOTE | 2020-06-14 15:55 | ER Document Report ---
ED Respiratory Problem - General Chief Complaint: Shortness Of Breath Stated Complaint: SHORTNESS OF BREATH Time Seen by Provider: 06/14/20 15:24 Primary Care Provider: BOB CACERES PA [Primary Care Provider] - Follow up as needed Notes: CHIEF COMPLAINT: Shortness of breath today HPI: 44-year-old female with history of sarcoidosis presenting for worsened shortness of breath today. Patient is normally on 6 L O2 nasal cannula at home. She is on chronic prednisone. Patient states she felt more short of breath than normal today and called EMS. No chest pain. No swelling of the legs. States that this has been happening fairly frequently to her. She states she was last admitted here 2 weeks ago for same issue but got better with doxycycline and steroids. ROS: See HPI - all other systems were reviewed and are otherwise negative Constitutional: no fever Eyes: no drainage, no blurred vision ENT: no runny nose, no sore throat Cardiovascular: no chest pain Resp: + SOB, positive chronic cough GI: no vomiting, no diarrhea, no abdominal pain : no dysuria Integumentary: no rash Allergy: no hives Musculoskeletal: no extremity pain or swelling Neurological: no numbness/tingling, no weakness MEDICATIONS: I agree with the patient medications as charted by the RN. ALLERGIES: I agree with the allergies as charted by the RN. PAST MEDICAL HISTORY/PAST SURGICAL HISTORY: Reviewed and agree as charted by RN. SOCIAL HISTORY: Reviewed and agree as charted by RN. FAMILY HISTORY: No significant familial comorbid conditions directly related to patient complaint EXAM: Reviewed vital signs as charted by RN. CONSTITUTIONAL: Alert and oriented and responds appropriately to questions. Well-appearing; well-nourished HEAD: Normocephalic; atraumatic EYES: PERRL; Conjunctivae clear, sclerae non-icteric ENT: normal nose; no rhinorrhea; moist mucous membranes; pharynx without lesions noted, no uvula edema or deviation, no tonsillar hypertrophy, phonation normal NECK: Supple without meningismus; non-tender; no cervical lymphadenopathy, no masses CARD: RRR; no murmurs, no clicks, no rubs, no gallops; symmetric distal pulses RESP: Normal chest excursion without splinting or tachypnea; breath sounds with expiratory wheezing all lung willis, rhonchi scattered in all lung willis, pulse oximetry 84% on 8 L nasal cannula improves to 93% on nonrebreather ABD/GI: Morbidly obese, normal bowel sounds; non-distended; soft, non-tender, no rebound, no guarding; no palpable organomegaly or masses. BACK: The back appears normal and is non-tender to palpation, there is no CVA tenderness EXT: Normal ROM in all joints; non-tender to palpation; no cyanosis, no effusions, no edema SKIN: Normal color for age and race; warm; dry; good turgor; no acute lesions noted NEURO: Moves all extremities equally; Motor and sensory function intact PSYCH: The patient's mood and manner are appropriate. Grooming and personal hygiene are appropriate. MDM: 44-year-old female with sarcoidosis presenting for dyspnea. Patient is moderately hypoxic normally on 6 L nasal cannula. Patient saturations were only 84% on 8 L nasal cannula, improved significantly with nonrebreather. Will give breathing treatment, steroids, baseline screening labs including cardiac labs discussed with Dr. Felder attending. Chart was reviewed, prior records reviewed was recently admitted for similar 3 weeks ago where she also had pneumonia which appears to have improved on her chest x-ray today TRAVEL OUTSIDE OF THE [place] IN LAST 30 DAYS: No - Related Data Allergies/Adverse Reactions: No Known Allergies Allergy (Verified 07/08/18 00:26) Past Medical History - Social History Smoking Status: Unknown if Ever Smoked Family History: Hyperlipidemia, Hypertension - Past Medical History Cardiac Medical History: Reports: Hx Congestive Heart Failure Pulmonary Medical History: Reports: Hx Asthma, Hx Bronchitis, Hx COPD, Hx Respiratory Failure Endocrine Medical History: Reports: Hx Diabetes Mellitus Type 2 Renal/ Medical History: Denies: Hx Peritoneal Dialysis GI Medical History: Reports: Hx Gastroesophageal Reflux Disease Psychiatric Medical History: Denies: Hx Depression Past Surgical History: Reports: Hx Gynecologic Surgery - fibroids, Hx Hysterectomy, Hx Thyroid Surgery Physical Exam - Vital signs Vitals: Resp Pulse Ox 22 H 98 06/14/20 15:20 06/14/20 15:20 Course - Re-evaluation Re-evalutation: 06/14/20 18:[address] Vale patient's PCP. He is familiar with the patient. We discussed the lab work, he requests an ABG prior to giving admission orders. Patient pulse oximetry is 86% on 8 L nasal cannula we will switch patient to high flow nasal cannula at this time pending ABG results 06/14/20 19:[address] Vale he requested I speak with the french binding folder about whether patient may need to be on BiPAP in the ICU. If they say no he will admit the patient to [facility] 06/14/20 19:05 I called the french binding folder service, awaiting call back 06/14/20 19:[address] Canales, french binding folder. Case was discussed labs reviewed will admit - Vital Signs Vital signs: Temp Pulse Resp BP Pulse Ox 24 H 95 06/14/20 17:00 06/14/20 18:29 - Laboratory Result Diagrams: 06/14/20 15:15 06/14/20 15:15 Laboratory results interpreted by me: 06/14/20 06/14/20 06/14/20 15:15 15:15 15:15 WBC 20.3 H Hgb 11.9 L MCV 77 L MCH 24.9 L RDW 19.8 H Seg Neuts % (Manual) 88 H Band Neutrophils % 1 L Lymphocytes % (Manual) 4 L Abs Neuts (Manual) 18.1 H Carbonic Acid ABG pCO2 ABG pO2 ABG HCO3 ABG Total CO2 ABG O2 Saturation Chloride 96 L BUN 6 L Creatinine 0.45 L Glucose 319 H AST 75 H ALT 107 H Alkaline Phosphatase 283 H NT-Pro-B Natriuret Pep 191 H Urine Glucose (UA) 06/14/20 06/14/20 16:50 18:28 WBC Hgb MCV MCH RDW Seg Neuts % (Manual) Band Neutrophils % Lymphocytes % (Manual) Abs Neuts (Manual) Carbonic Acid 1.49 H ABG pCO2 49.6 H ABG pO2 45.3 L ABG HCO3 27.9 H ABG Total CO2 29.4 H ABG O2 Saturation 79.4 L Chloride BUN Creatinine Glucose AST ALT Alkaline Phosphatase NT-Pro-B Natriuret Pep Urine Glucose (UA) 50 H Critical Care Note - Critical Care Note Total time excluding time spent on procedures (mins): 45 - Acute respiratory failure requiring high flow oxygen ICU admission multiple consultations Discharge - Discharge Clinical Impression: Acute on chronic respiratory failure with hypoxemia Condition: Serious Disposition: ADMITTED INPATIENT Admitting Provider: Parker ([employer] Process [employer]) Unit Admitted: ICU Referrals: BOB CACERES PA [Primary Care Provider] - Follow up as needed
[2020-06-14 15:57] LABS: POTASSIUM 4.2 mmol/L (3.6-5.0)
[2020-06-14 16:00] LABS: ABSOLUTE LYMPHOCYTES# (MANUAL) 0.8 10^3/uL (0.5-4.7); ABSOLUTE MONOCYTES # (MANUAL) 0.8 10^3/uL (0.1-1.4); BAND NEUTROPHILS % (MANUAL) 1 % (3-5); BASOPHILS % (MANUAL) 0 % (0-2); EOSINOPHILS % (MANUAL) 3 % (0-6); LYMPHOCYTES % (MANUAL) 4 % (13-45); MONOCYTES % (MANUAL) 4 % (3-13); SEGMENTED NEUTROPHILS % (MAN) 88 % (42-78); TOTAL CELLS COUNTED 100
[2020-06-14 16:02] LABS: TROPONIN I 0.016 ng/mL
[2020-06-14 16:03] LABS: ANISOCYTOSIS 2+; OVALOCYTES SLIGHT; PLATELET COMMENT ADEQUATE; POIKILOCYTOSIS SLIGHT; TARGET CELLS SLIGHT
--- NOTE | 2020-06-14 16:08 | RADIOLOGY REPORT (SQ) ---
EXAM DESCRIPTION: CHEST SINGLE VIEW IMAGES COMPLETED DATE/TIME: 06/14/2020 3:51 pm REASON FOR STUDY: sob COMPARISON: 05/23/2020 EXAM PARAMETERS: NUMBER OF VIEWS: One view. TECHNIQUE: Single frontal radiographic view of the chest acquired. RADIATION DOSE: NA LIMITATIONS: None. FINDINGS: LUNGS AND PLEURA: Moderate chronic diffuse interstitial change. No new or acute infiltrat es. MEDIASTINUM AND HILAR STRUCTURES: No masses. Contour normal. HEART AND VASCULAR STRUCTURES: Heart normal in size. Normal vasculature. BONES: No acute findings. HARDWARE: None in the chest. OTHER: No other significant finding. IMPRESSION: No interval change. Moderate diffuse chronic interstitial change. TECHNICAL DOCUMENTATION: JOB ID: [id number] [email or web address] All Rights Reserved Reading location - IP/workstation name: [email or web address]
[2020-06-14 16:41] LABS: VENOUS BLOOD BASE EXCESS 4.8 mmol/L; VENOUS BLOOD HCO3 31.8 mmol/L (20-32); VENOUS BLOOD PH 7.37 (7.30-7.42)
[2020-06-14 18:23] LABS: APPEARANCE,URINE CLEAR; BILIRUBIN,URINE NEGATIVE (NEGATIVE); COLOR,URINE STRAW; GLUCOSE, URINE 50 mg/dL (NEGATIVE); KETONES,URINE NEGATIVE (NEGATIVE); LEUKOCYTE ESTERASE,URINE NEGATIVE (NEGATIVE); NITRITE,URINE NEGATIVE (NEGATIVE); PROTEIN,URINE NEGATIVE (NEGATIVE); URINE SPECIFIC GRAVITY 1.005; UROBILINOGEN,URINE NEGATIVE mg/dL (<2.0)
[2020-06-14 18:55] LABS: ARTERIAL BLOOD BASE EXCESS 1.9 mmol/L; ARTERIAL BLOOD H2CO3 1.49 mmol/L (1.05-1.35); ARTERIAL BLOOD HCO3 27.9 mmol/L (20-24); ARTERIAL BLOOD O2 SATURATION 79.4 % (94-98); ARTERIAL BLOOD PCO2 49.6 mmHg (35-45); ARTERIAL BLOOD PH 7.37 (7.35-7.45); ARTERIAL BLOOD PO2 45.3 mmHg (80-100); ARTERIAL BLOOD TOTAL CO2 29.4 mmol/L (21-25)
[2020-06-14 18:56] LABS: ARTERIAL BLOOD FIO2 86
[2020-06-14] MEDS ORDERED: ACETAMINOPHEN 325 MG TABLET PO PRN (20:30)
[2020-06-14] MEDS ORDERED: GLUCAGON,HUMAN RECOMB 1 MG INJ IM PRN (20:35)
[2020-06-14] MEDS ORDERED: DEXTROSE 50%-WATER 25 GM/50 ML DISP.SYRIN IV PRN ×2 (20:35)
[2020-06-14] MEDS ORDERED: DEXTROSE 40% GEL 15 GM TUBE PO PRN ×2 (20:35)
[2020-06-14] MEDS: METHYLPREDNISOLONE INJ 125 MG/2 ML SDV IV SCH (23:58)
[2020-06-14] MEDS: CEFEPIME 1 GM/D5W RTU 1 GM/50 ML RTUPB IV SCH (23:58)
[2020-06-14] MEDS: FAMOTIDINE INJ/PF 20 MG/2 ML SDV IV SCH (23:58)
[2020-06-14] MEDS: INSULIN LISPRO 100 UNIT/ML 3 ML VIAL SUBCUT SCH (23:58)
[2020-06-15 00:37] LABS: ANION GAP 15 (5-19); BLOOD UREA NITROGEN 13 mg/dL (7-20); CALCIUM 10.7 mg/dL (8.4-10.2); CARBON DIOXIDE 30 mmol/L (22-30); CHLORIDE 94 mmol/L (98-107)
[2020-06-15 00:43] LABS: GLUCOSE 394 mg/dL (75-110)
[2020-06-15] MEDS: MELATONIN 5 MG TABLET PO PRN ×2 (00:47→21:52)
[2020-06-15] MEDS: DOXYCYCLINE HYCLATE 100 MG TABLET PO SCH ×3 (00:47→22:37)
--- NOTE | 2020-06-15 03:40 | Progress Note ---
Provider Note Provider Note: Patient evaluated in the ER. Patient refused ICU care. She verbalized that "knows how to managed her disease process". Patient oxygenation was 93-94% during the conversation. Notified ED provider. Patient does not need ICU at this time.
[2020-06-15 04:57] LABS: HEMATOCRIT 37.9 % (36.0-47.0); MEAN CORPUSCULAR HEMOGLOBIN 24.5 pg (27.0-33.4); MEAN CORPUSCULAR HGB CONC 31.6 g/dL (32.0-36.0); MEAN CORPUSCULAR VOLUME 78 fl (80-97); PLATELET COUNT 249 10^3/uL (150-450); RED BLOOD COUNT 4.89 10^6/uL (3.72-5.28); RED CELL DISTRIBUTION WIDTH 19.4 % (11.5-14.0); WHITE BLOOD COUNT 15.5 10^3/uL (4.0-10.5)
[2020-06-15 05:52] LABS: ABSOLUTE LYMPHOCYTES# (MANUAL) 1.2 10^3/uL (0.5-4.7); ABSOLUTE MONOCYTES # (MANUAL) 0.3 10^3/uL (0.1-1.4); BASOPHILS % (MANUAL) 0 % (0-2); EOSINOPHILS % (MANUAL) 1 % (0-6); LYMPHOCYTES % (MANUAL) 8 % (13-45); MONOCYTES % (MANUAL) 2 % (3-13); SEGMENTED NEUTROPHILS % (MAN) 89 % (42-78); TOTAL CELLS COUNTED 100
[2020-06-15 05:53] LABS: ANISOCYTOSIS 2+; HYPOCHROMASIA SLIGHT; PLATELET COMMENT ADEQUATE; TEAR DROP CELLS SLIGHT; TOXIC VACUOLATION PRESENT
[2020-06-15] MEDS: METHYLPREDNISOLONE INJ 125 MG/2 ML SDV IV SCH ×3 (05:55→21:52)
--- NOTE | 2020-06-15 06:49 | EKG REPORT ---
SEVERITY:- ABNORMAL ECG - SINUS TACHYCARDIA PROBABLE LEFT ATRIAL ABNORMALITY PROBABLE LVH WITH SECONDARY REPOL ABNRM : Confirmed by: Bam Alcantar MD 15-Jun-2020 06:49:13
[2020-06-15] MEDS: BUDESONIDE NEB 0.5 MG/2 ML AMPUL NEB SCH ×2 (08:04→20:18)
[2020-06-15] MEDS: IPRATROPIUM/ALBUTEROL 0.5-2.5 MG/3 ML AMPUL NEB SCH ×4 (08:04→20:18)
[2020-06-15] MEDS: INSULIN LISPRO 100 UNIT/ML 3 ML VIAL SUBCUT SCH ×4 (08:16→21:53)
[2020-06-15] MEDS: FAMOTIDINE INJ/PF 20 MG/2 ML SDV IV SCH ×2 (09:18→21:53)
[2020-06-15] MEDS: AMLODIPINE BESYLATE 5 MG TABLET PO SCH (09:18)
[2020-06-15] MEDS: ENOXAPARIN SODIUM INJ 40 MG/0.4 ML DISP.SYRIN SUBCUT SCH ×2 (09:18→09:36)
[2020-06-15] MEDS: CEFEPIME 1 GM/D5W RTU 1 GM/50 ML RTUPB IV SCH ×2 (09:18→21:53)
[2020-06-15] MEDS ORDERED: [UNRECOGNIZED DRUG - OTHER] PO SCH (10:00)
[2020-06-15] MEDS ORDERED: SITAGLIPTIN PHOS PO SCH (10:00)
[2020-06-15] MEDS ORDERED: METFORMIN HCL PO SCH (10:00)
--- NOTE | 2020-06-15 10:13 | PDOC H&P ---
History of Present Illness Admission Date/PCP: 06/14/20 20:20 SHELDON WILHELM Patient complains of: Shortness of the breath History of Present Illness: TRE WARREN is a 44 year old female This is a 44-year-old female with a significant history of the sarcoidosis oxygen dependence chronic respiratory failure with normally require 6 to 8 L oxygen at home brought to the EMS to the emergency department with increasing shortness of breath with patient O2 sat was 80% in the BiPAP initially patient initially refused to go to the ICU giving some IV steroids and nebulizer treatments in the emergency department some patients feel better. Patient when I saw it alert awake oriented x4 back to the baseline's in the floor denied any chest pain no short of breath Patient seen by the Dr. Guardado as outpatient Patient also seen in the [place] [facility] for possible transplant Patient have significant history of the sarcoid including the liver to see Dr. Thompson Patient also see a Dr. Pringle as outpatients per the heart Patient otherwise denied any fever no chills According to the patient she was taking the steroid and a tapering steroid to 10 mg and patient started developing the more symptoms Thinks patients pretty much while steroid-dependent require high dose of the steroid We will discussed with the pulmonary Past Medical History Cardiac Medical History: Reports: Congestive Heart Failure Pulmonary Medical History: Reports: Asthma, Bronchitis, Chronic Obstructive Pulmonary Disease (COPD), Respiratory Failure Endocrine Medical History: Reports: Diabetes Mellitus Type 2 GI Medical History: Reports: Gastroesophageal Reflux Disease Psychiatric Medical History: Denies: Depression Hematology: Reports: Anemia Past Surgical History Past Surgical History: Reports: Hysterectomy Social History Information Source: Patient Smoking Status: Former Smoker Electronic Cigarette use?: No Frequency of Alcohol Use: None Hx Recreational Drug Use: No Drugs: None Hx Prescription Drug Abuse: No Family History Family History: None, Hyperlipidemia, Hypertension Parental Family History Reviewed: Yes Children Family History Reviewed: Yes Sibling(s) Family History Reviewed.: Yes Medication/Allergy Home Medications: Albuterol Sulfate [Albuterol Sulfate Hfa] 2 puff IH QID 06/14/20 Amlodipine Besylate [Norvasc 5 mg Tablet] 5 mg PO DAILY 06/14/20 Budesonide/Formoterol Fumarate [Symbicort Hfa 160-4.5 Mcg Inhaler 6 gm] 2 puff IH Q12 06/14/20 Doxycycline Hyclate [Vibramycin 100 mg Tablet] 100 mg PO Q12 06/14/20 Prednisone 10 mg PO DAILY 06/14/20 Sitagliptin Phos/Metformin HCl [Janumet Xr 50-1,000 mg Tablet] 1 each PO BID 06/14/20 Allergies/Adverse Reactions: No Known Allergies Allergy (Verified 07/08/18 00:26) Review of Systems Constitutional: ABSENT: chills, fever(s), headache(s), weight gain, weight loss Eyes: ABSENT: visual disturbances Ears: ABSENT: hearing changes Cardiovascular: PRESENT: dyspnea on exertion. ABSENT: chest pain, edema, orth ropnea, palpitations Respiratory: ABSENT: cough, hemoptysis Gastrointestinal: ABSENT: abdominal pain, constipation, diarrhea, hematemesis, hematochezia, nausea, vomiting Genitourinary: ABSENT: dysuria, hematuria Musculoskeletal: ABSENT: joint swelling Integumentary: ABSENT: rash, wounds Neurological: ABSENT: abnormal gait, abnormal speech, confusion, dizziness, focal weakness, syncope Psychiatric: ABSENT: anxiety, depression, homidical ideation, suicidal ideation Endocrine: ABSENT: cold intolerance, heat intolerance, menstrual abnormalities, polydipsia, polyuria Hematologic/Lymphatic: ABSENT: easy bleeding, easy bruising, lymphadenopathy Physical Exam Vital Signs: Temp Pulse Resp BP Pulse Ox 97.9 F 108 H 16 166/96 H 97 06/15/20 07:58 06/15/20 08:07 06/15/20 08:07 06/15/20 03:33 06/15/20 08:07 Intake & Output 06/14/20 06/15/20 06/16/20 06:59 06:59 06:59 Intake Total 290 Output Total 0 Balance 290 Weight 108.1 kg General appearance: PRESENT: no acute distress, well-developed, well-nourished Head exam: PRESENT: atraumatic, normocephalic Eye exam: PRESENT: conjunctiva pink, EOMI, PERRLA. ABSENT: scleral icterus Ear exam: PRESENT: normal external ear exam Mouth exam: PRESENT: moist, tongue midline Neck exam: PRESENT: full ROM. ABSENT: carotid bruit, JVD, lymphadenopathy, thyromegaly Respiratory exam: PRESENT: decreased breath sounds Cardiovascular exam: PRESENT: RRR. ABSENT: diastolic murmur, rubs, systolic murmur Pulses: PRESENT: normal dorsalis pedis pul, +2 pedal pulses bilateral Vascular exam: PRESENT: normal capillary refill GI/Abdominal exam: PRESENT: normal bowel sounds, soft. ABSENT: distended, guarding, mass, organolmegaly, rebound, tenderness Rectal exam: PRESENT: deferred Neurological exam: PRESENT: alert, awake, oriented to person, oriented to place, oriented to time, oriented to situation, CN II-XII grossly intact. ABSENT: motor sensory deficit Psychiatric exam: PRESENT: appropriate affect, normal mood. ABSENT: homicidal ideation, suicidal ideation Skin exam: PRESENT: dry, intact, warm. ABSENT: cyanosis, rash Results Laboratory Results: 06/15/20 04:27 06/14/20 23:59 06/14/20 06/14/20 06/14/20 15:15 15:15 16:23 WBC 20.3 H RBC 4.77 Hgb 11.9 L Hct 36.9 MCV 77 L MCH 24.9 L MCHC 32.1 RDW 19.8 H Plt Count 228 Seg Neutrophils % Not Reportable Carbonic Acid HCO3/H2CO3 Ratio ABG pH ABG pCO2 ABG pO2 ABG HCO3 ABG O2 Saturation ABG Base Excess VBG pH 7.37 VBG pCO2 57.0 VBG HCO3 31.8 VBG Base Excess 4.8 FiO2 Sodium 139.9 Potassium 4.2 Chloride 96 L Carbon Dioxide 30 Anion Gap 14 BUN 6 L Creatinine 0.45 L Est GFR ( Amer) > 60 Glucose 319 H Calcium 9.6 Total Bilirubin 1.1 AST 75 H Alkaline Phosphatase 283 H Total Protein 7.6 Albumin 4.3 Urine Color Urine Appearance Urine pH Ur Specific [place] Urine Protein Urine Glucose (UA) Urine Ketones Urine Blood Urine Nitrite Ur Leukocyte Esterase Urine WBC (Auto) Urine RBC (Auto) 06/14/20 06/14/20 06/14/20 16:50 18:28 23:59 WBC RBC Hgb Hct MCV MCH MCHC RDW Plt Count Seg Neutrophils % Carbonic Acid 1.49 H HCO3/H2CO3 Ratio 18:1 ABG pH 7.37 ABG pCO2 49.6 H ABG pO2 45.3 L ABG HCO3 27.9 H ABG O2 Saturation 79.4 L ABG Base Excess 1.9 VBG pH VBG pCO2 VBG HCO3 VBG Base Excess FiO2 86 Sodium 138.6 Potassium 5.0 Chloride 94 L Carbon Dioxide 30 Anion Gap 15 BUN 13 Creatinine 0.55 Est GFR ( Amer) > 60 Glucose 394 H Calcium 10.7 H Total Bilirubin AST Alkaline Phosphatase Total Protein Albumin Urine Color STRAW Urine Appearance CLEAR Urine pH 6.0 Ur Specific [place] 1.005 Urine Protein NEGATIVE Urine Glucose (UA) 50 H Urine Ketones NEGATIVE Urine Blood NEGATIVE Urine Nitrite NEGATIVE Ur Leukocyte Esterase NEGATIVE Urine WBC (Auto) 1 Urine RBC (Auto) 0 06/15/20 04:27 WBC 15.5 H RBC 4.89 Hgb 12.0 Hct 37.9 MCV 78 L MCH 24.5 L MCHC 31.6 L RDW 19.4 H Plt Count 249 Seg Neutrophils % Not Reportable Carbonic Acid HCO3/H2CO3 Ratio ABG pH ABG pCO2 ABG pO2 ABG HCO3 ABG O2 Saturation ABG Base Excess VBG pH VBG pCO2 VBG HCO3 VBG Base Excess FiO2 Sodium Potassium Chloride Carbon Dioxide Anion Gap BUN Creatinine Est GFR ( Amer) Glucose Calcium Total Bilirubin AST Alkaline Phosphatase Total Protein Albumin Urine Color Urine Appearance Urine pH Ur Specific [place] Urine Protein Urine Glucose (UA) Urine Ketones Urine Blood Urine Nitrite Ur Leukocyte Esterase Urine WBC (Auto) Urine RBC (Auto) 06/14/20 15:15 Troponin I 0.016 NT-Pro-B Natriuret Pep 191 H Impressions: Chest X-Ray 06/14/20 15:25 IMPRESSION: No interval change. Moderate diffuse chronic interstitial change. Assessment & Plan - Diagnosis (1) Shortness of breath Is this a current diagnosis for this admission?: Yes Plan: Due to the most likely a respiratory failure on chronic with acute exacerbations due to the tapering of the steroid patient is probably require a higher dose of the steroids will discuss with the pulmonary (2) Acute on chronic respiratory failure with hypoxemia Is this a current diagnosis for this admission?: Yes Plan: Currently on a BiPAP we will repeat the ABG continues to current medications (3) Obesity hypoventilation syndrome Is this a current diagnosis for this admission?: Yes Plan: Continues to use the BiPAP (4) Sarcoidosis Is this a current diagnosis for this admission?: Yes Plan: We will start the patient on IV steroid consult the pulmonary (5) Abnormal liver function Is this a current diagnosis for this admission?: Yes Plan: Due to the sarcoid disease currently all stable (6) Congestive heart failure Qualifiers: Heart failure type: diastolic Heart failure chronicity: chronic Qualified Code(s): I50.32 - Chronic diastolic (congestive) heart failure Is this a current diagnosis for this admission?: Yes Plan: The all stable seen by the Dr. Pringle recently (7) Hypertension Qualifiers: Hypertension type: essential hypertension Is this a current diagnosis for this admission?: Yes - Time Time Spent: 30 to 50 Minutes Medications reviewed and adjusted accordingly: Yes Anticipated Discharge Disposition: Home with Home Health Anticipated Discharge Timeframe: within 72 hours - Inpatient Certification Based on my medical assessment, after consideration of the patient's comorbidities, presenting symptoms, or acuity I expect that the services needed warrant INPATIENT care.: Yes I certify that my determination is in accordance with my understanding of Medicare's requirements for reasonable and necessary INPATIENT services [42 CFR 412.3e].: Yes Medical Necessity: Significant Comorbidiites Make Outpatient Treatment Too Risky, Need Close Monitoring Due to Risk of Patient Decompensation, Need for IV Antibiotics Post Hospital Care: D/C Apiarist Documentation - Plan Summary Plan Summary: Admit the patient in IMCU Continues to current medications Consult the pulmonary
[2020-06-15] MEDS ORDERED: MAG HYDROX/AL HYDROX/SIMETH SUSP 30 ML UDCUP PO PRN (21:44)
[2020-06-16] MEDS: METHYLPREDNISOLONE INJ 125 MG/2 ML SDV IV SCH (05:52)
[2020-06-16 06:20] LABS: HEMATOCRIT 36.7 % (36.0-47.0); HEMOGLOBIN 11.7 g/dL (12.0-15.5); MEAN CORPUSCULAR HEMOGLOBIN 24.8 pg (27.0-33.4); MEAN CORPUSCULAR VOLUME 78 fl (80-97); PLATELET COUNT 266 10^3/uL (150-450); RED BLOOD COUNT 4.73 10^6/uL (3.72-5.28); RED CELL DISTRIBUTION WIDTH 19.3 % (11.5-14.0); WHITE BLOOD COUNT 21.5 10^3/uL (4.0-10.5)
[2020-06-16 07:32] LABS: ABSOLUTE LYMPHOCYTES# (MANUAL) 2.2 10^3/uL (0.5-4.7); ABSOLUTE MONOCYTES # (MANUAL) 1.1 10^3/uL (0.1-1.4); BASOPHILS % (MANUAL) 0 % (0-2); EOSINOPHILS % (MANUAL) 0 % (0-6); LYMPHOCYTES % (MANUAL) 10 % (13-45); MONOCYTES % (MANUAL) 5 % (3-13); PLATELET COMMENT ADEQUATE; SEGMENTED NEUTROPHILS % (MAN) 85 % (42-78); TOTAL CELLS COUNTED 100
[2020-06-16 07:33] LABS: ANISOCYTOSIS 2+; HYPERSEGMENTED NEUTROPHILS PRESENT; HYPOCHROMASIA 1+
[2020-06-16 07:34] LABS: POLYCHROMASIA SLIGHT
[2020-06-16 07:36] LABS: TARGET CELLS 1+
[2020-06-16] MEDS: BUDESONIDE NEB 0.5 MG/2 ML AMPUL NEB SCH ×2 (07:57→20:20)
[2020-06-16] MEDS: IPRATROPIUM/ALBUTEROL 0.5-2.5 MG/3 ML AMPUL NEB SCH ×4 (07:57→20:20)
[2020-06-16] MEDS: INSULIN LISPRO 100 UNIT/ML 3 ML VIAL SUBCUT SCH ×4 (08:40→21:46)
--- NOTE | 2020-06-16 09:55 | PDOC PROGRESS REPORT ---
Subjective Progress Note for:: 06/16/20 Subjective:: Patient is feeling much better Denied any chest pain no short of breath No fever no chills Reason For Visit: COPD,HYPOCA,SARCOID Physical Exam Vital Signs: Temp Pulse Resp BP Pulse Ox 97.6 F 103 H 18 136/87 H 98 06/16/20 08:10 06/16/20 08:10 06/16/20 08:10 06/16/20 08:10 06/16/20 08:10 Intake & Output 06/15/20 06/16/20 06/17/20 06:59 06:59 06:59 Intake Total 290 2300 Output Total 0 Balance 290 2300 Weight 108.1 kg 94.4 kg General appearance: PRESENT: no acute distress, well-developed, well-nourished Head exam: PRESENT: atraumatic, normocephalic Eye exam: PRESENT: conjunctiva pink, EOMI, PERRLA. ABSENT: scleral icterus Ear exam: PRESENT: normal external ear exam Mouth exam: PRESENT: moist, tongue midline Neck exam: PRESENT: full ROM. ABSENT: carotid bruit, JVD, lymphadenopathy, thyromegaly Respiratory exam: PRESENT: clear to auscultation lien Cardiovascular exam: PRESENT: RRR. ABSENT: diastolic murmur, rubs, systolic murmur Vascular exam: PRESENT: normal capillary refill GI/Abdominal exam: PRESENT: normal bowel sounds, soft. ABSENT: distended, guarding, mass, organolmegaly, rebound, tenderness Rectal exam: PRESENT: deferred Neurological exam: PRESENT: alert, awake, oriented to person, oriented to place, oriented to time, oriented to situation, CN II-XII grossly intact. ABSENT: motor sensory deficit Psychiatric exam: PRESENT: appropriate affect, normal mood. ABSENT: homicidal ideation, suicidal ideation Skin exam: PRESENT: dry, intact, warm. ABSENT: cyanosis, rash Results Laboratory Results: 06/16/20 05:46 06/14/20 23:59 06/16/20 05:46 WBC 21.5 H RBC 4.73 Hgb 11.7 L Hct 36.7 MCV 78 L MCH 24.8 L MCHC 32.0 RDW 19.3 H Plt Count 266 Seg Neutrophils % Not Reportable 06/14/20 15:15 Troponin I 0.016 NT-Pro-B Natriuret Pep 191 H Impressions: Chest X-Ray 06/14/20 15:25 IMPRESSION: No interval change. Moderate diffuse chronic interstitial change. Assessment & Plan - Diagnosis (1) Shortness of breath Is this a current diagnosis for this admission?: Yes (2) Acute on chronic respiratory failure with hypoxemia Is this a current diagnosis for this admission?: Yes (3) Obesity hypoventilation syndrome Is this a current diagnosis for this admission?: Yes (4) Sarcoidosis Is this a current diagnosis for this admission?: Yes (5) Abnormal liver function Is this a current diagnosis for this admission?: Yes (6) Congestive heart failure Qualifiers: Heart failure type: diastolic Heart failure chronicity: chronic Qualified Code(s): I50.32 - Chronic diastolic (congestive) heart failure Is this a current diagnosis for this admission?: Yes (7) Hypertension Qualifiers: Hypertension type: essential hypertension Is this a current diagnosis for this admission?: Yes - Time Time Spent with patient: 15-24 minutes Level of Care: IMCU Medications reviewed and adjusted accordingly: Yes Anticipated discharge: Home with Homehealth Anticipated DC Timeframe: within 48 hours - Plan Summary Plan Summary: We reduce the IV steroid Continues to current medications
[2020-06-16] MEDS: ENOXAPARIN SODIUM INJ 40 MG/0.4 ML DISP.SYRIN SUBCUT SCH (12:19)
[2020-06-16] MEDS: AMLODIPINE BESYLATE 5 MG TABLET PO SCH (12:20)
[2020-06-16] MEDS: FAMOTIDINE INJ/PF 20 MG/2 ML SDV IV SCH ×2 (12:20→21:47)
[2020-06-16] MEDS: CEFEPIME 1 GM/D5W RTU 1 GM/50 ML RTUPB IV SCH ×2 (12:20→21:46)
[2020-06-16] MEDS ORDERED: METHYLPREDNISOLONE INJ 125 MG/2 ML SDV IV SCH ×2 (14:00)
[2020-06-16] MEDS: METHYLPREDNISOLONE INJ 40 MG/1 ML SDV IV SCH ×2 (16:16→21:47)
[2020-06-16] MEDS: DOXYCYCLINE HYCLATE 100 MG TABLET PO SCH ×2 (16:16→21:52)
[2020-06-16] MEDS ORDERED: INSULIN LISPRO 100 UNIT/ML 3 ML VIAL SUBCUT ONE (22:15)
[2020-06-17] MEDS: METHYLPREDNISOLONE INJ 40 MG/1 ML SDV IV SCH (05:33)
[2020-06-17 06:34] LABS: HEMATOCRIT 35.8 % (36.0-47.0); HEMOGLOBIN 11.3 g/dL (12.0-15.5); MEAN CORPUSCULAR HEMOGLOBIN 24.4 pg (27.0-33.4); MEAN CORPUSCULAR HGB CONC 31.5 g/dL (32.0-36.0); MEAN CORPUSCULAR VOLUME 78 fl (80-97); PLATELET COUNT 302 10^3/uL (150-450); RED BLOOD COUNT 4.62 10^6/uL (3.72-5.28); RED CELL DISTRIBUTION WIDTH 19.5 % (11.5-14.0)
[2020-06-17 07:06] LABS: ANION GAP 10 (5-19); BLOOD UREA NITROGEN 22 mg/dL (7-20); CALCIUM 9.7 mg/dL (8.4-10.2); CARBON DIOXIDE 32 mmol/L (22-30); CHLORIDE 94 mmol/L (98-107); GLUCOSE 324 mg/dL (75-110)
[2020-06-17 07:11] LABS: ABSOLUTE MONOCYTES # (MANUAL) 1.2 10^3/uL (0.1-1.4); BASOPHILS % (MANUAL) 0 % (0-2); EOSINOPHILS % (MANUAL) 0 % (0-6); LYMPHOCYTES % (MANUAL) 10 % (13-45); MONOCYTES % (MANUAL) 6 % (3-13); SEGMENTED NEUTROPHILS % (MAN) 84 % (42-78); TOTAL CELLS COUNTED 100
[2020-06-17 07:13] LABS: ANISOCYTOSIS 2+; OVALOCYTES 1+; POIKILOCYTOSIS 2+; TARGET CELLS SLIGHT; TOXIC GRANULATION SLIGHT
[2020-06-17 07:14] LABS: PLATELET COMMENT ADEQUATE; TEAR DROP CELLS SLIGHT
[2020-06-17] MEDS: BUDESONIDE NEB 0.5 MG/2 ML AMPUL NEB SCH (08:07)
[2020-06-17] MEDS: IPRATROPIUM/ALBUTEROL 0.5-2.5 MG/3 ML AMPUL NEB SCH ×3 (08:07→17:01)
[2020-06-17] MEDS: INSULIN LISPRO 100 UNIT/ML 3 ML VIAL SUBCUT SCH ×2 (08:22→12:51)
[2020-06-17] MEDS ORDERED: PREDNISONE 20 MG TABLET PO SCH (10:00)
[2020-06-17] MEDS: ENOXAPARIN SODIUM INJ 40 MG/0.4 ML DISP.SYRIN SUBCUT SCH (11:12)
[2020-06-17] MEDS: CEFEPIME 1 GM/D5W RTU 1 GM/50 ML RTUPB IV SCH (11:16)
[2020-06-17] MEDS: FAMOTIDINE INJ/PF 20 MG/2 ML SDV IV SCH (11:17)
[2020-06-17] MEDS: AMLODIPINE BESYLATE 5 MG TABLET PO SCH (11:24)
[2020-06-17 11:58] VITALS: BP 127/85
--- NOTE | 2020-06-17 12:37 | PDOC DISCHARGE SUMMARY ---
Impression - Admit/DC Date/PCP Admission Date/Primary Care Provider: 06/14/20 20:20 SHELDON WILHELM Discharge Date: 06/17/20 - Discharge Diagnosis (1) Shortness of breath Is this a current diagnosis for this admission?: Yes (2) Acute on chronic respiratory failure with hypoxemia Is this a current diagnosis for this admission?: Yes (3) Obesity hypoventilation syndrome Is this a current diagnosis for this admission?: Yes (4) Sarcoidosis Is this a current diagnosis for this admission?: Yes (5) Abnormal liver function Is this a current diagnosis for this admission?: Yes (6) Congestive heart failure Is this a current diagnosis for this admission?: Yes (7) Hypertension Is this a current diagnosis for this admission?: Yes - Additional Information Discharge Diet: Diabetic Referrals: BOB CACERES PA [Primary Care Provider] - 06/26/20 8:30 am () Prescriptions: Prednisone [Deltasone 20 mg Tablet] 30 mg PO DAILY #30 tablet Doxycycline Hyclate 100 mg PO BID #14 tablet. Home Medications: Albuterol Sulfate [Albuterol Sulfate Hfa] 2 puff IH QID 06/14/20 Amlodipine Besylate [Norvasc 5 mg Tablet] 5 mg PO DAILY 06/14/20 Budesonide/Formoterol Fumarate [Symbicort HFA 160-4.5 mcg Inhaler 6 gm] 2 puff IH Q12 06/14/20 Sitagliptin Phos/Metformin HCl [Janumet Xr 50-1,000 mg Tablet] 1 each PO BID 06/14/20 Doxycycline Hyclate 100 mg PO BID #14 tablet. 06/17/20 Doxycycline Hyclate [Vibramycin 100 mg Tablet] 100 mg PO Q12 #14 06/17/20 Prednisone [Deltasone 20 mg Tablet] 30 mg PO DAILY #30 tablet 06/17/20 History of Present Illiness History of Present Illness: TRE WARREN is a 44 year old female This is a 44-year-old female with a significant history of the sarcoidosis oxygen dependence chronic respiratory failure with normally require 6 to 8 L oxygen at home brought to the EMS to the emergency department with increasing shortness of breath with patient O2 sat was 80% in the BiPAP initially patient initially refused to go to the ICU giving some IV steroids and nebulizer treatments in the emergency department some patients feel better. Patient when I saw it alert awake oriented x4 back to the baseline's in the floor denied any chest pain no short of breath Patient seen by the Dr. Guardado as outpatient Patient also seen in the [place] [facility] for possible transplant Patient have significant history of the sarcoid including the liver to see Dr. Thompson Patient also see a Dr. Pringle as outpatients per the heart Patient otherwise denied any fever no chills According to the patient she was taking the steroid and a tapering steroid to 10 mg and patient started developing the more symptoms Thinks patients pretty much while steroid-dependent require high dose of the steroid We will discussed with the pulmonary Hospital Course Hospital Course: This is a 44-year-old female's with a significant history of the sarcoid respiratory failure came to the emergency department increasing the oxygen and shortness of the breath Patient is recently admitting in the hospital and a Covid test was done was negative Patients to have a chronic respiratory failure with a significant sarcoidosis admitting in the hospital and IV steroid because of the patient always have a steroid tapering down to 13 mg patient started developing the flareup Since responds very well patient seen by Dr. Guardado the pulmonary and discussed with him and suggest that patients can go home with the 30 mg steroid and tapering to 20 mg but keep it 20 mg right now His blood sugar was running high due to the steroid treat with the insulin patient's at this point discharged home with the patient's wants to go home back to the baseline with a 6 L oxygen's Patient's do not want take any insulin at home and according to the patient she watch that sugar very well and no home is running very well Patient's walk p.o. intake is good patient's white count was elevated most likely related to the steroid Physical Exam Vital Signs: Temp Pulse Resp BP Pulse Ox 98.3 F 83 16 127/85 H 98 06/17/20 11:20 06/17/20 11:20 06/17/20 11:20 06/17/20 11:20 06/17/20 11:20 Intake & Output 06/16/20 06/17/20 06/18/20 06:59 06:59 06:59 Intake Total 2300 2670 Balance 2300 2670 Weight 94.4 kg 110 kg General appearance: PRESENT: no acute distress, well-developed, well-nourished Head exam: PRESENT: atraumatic, normocephalic Eye exam: PRESENT: conjunctiva pink, EOMI, PERRLA. ABSENT: scleral icterus Ear exam: PRESENT: normal external ear exam Mouth exam: PRESENT: moist, tongue midline Neck exam: ABSENT: carotid bruit, JVD, lymphadenopathy, thyromegaly Respiratory exam: PRESENT: clear to auscultation lien. ABSENT: rales, rhonchi, wheezes Cardiovascular exam: PRESENT: RRR. ABSENT: diastolic murmur, rubs, systolic murmur Pulses: PRESENT: normal dorsalis pedis pul Vascular exam: PRESENT: normal capillary refill GI/Abdominal exam: PRESENT: normal bowel sounds, soft. ABSENT: distended, guarding, mass, organolmegaly, rebound, tenderness Rectal exam: PRESENT: deferred Extremities exam: PRESENT: full ROM. ABSENT: calf tenderness, clubbing, pedal edema Neurological exam: PRESENT: alert, awake, oriented to person, oriented to place, oriented to time, oriented to situation, CN II-XII grossly intact. ABSENT: motor sensory deficit Psychiatric exam: PRESENT: appropriate affect, normal mood. ABSENT: homicidal ideation, suicidal ideation Skin exam: PRESENT: dry, intact, warm. ABSENT: cyanosis, rash Results Laboratory Results: WBC 20.0 10^3/uL (4.0-10.5) H 06/17/20 05:34 RBC 4.62 10^6/uL (3.72-5.28) 06/17/20 05:34 Hgb 11.3 g/dL (12.0-15.5) L 06/17/20 05:34 Hct 35.8 % (36.0-47.0) L 06/17/20 05:34 MCV 78 fl (80-97) L 06/17/20 05:34 MCH 24.4 pg (27.0-33.4) L 06/17/20 05:34 MCHC 31.5 g/dL (32.0-36.0) L 06/17/20 05:34 RDW 19.5 % (11.5-14.0) H 06/17/20 05:34 Plt Count 302 10^3/uL (150-450) 06/17/20 05:34 Lymph % (Auto) Not Reportable 06/17/20 05:34 [place] % (Auto) Not Reportable 06/17/20 05:34 Eos % (Auto) Not Reportable 06/17/20 05:34 Baso % (Auto) Not Reportable 06/17/20 05:34 Absolute Neuts (auto) Not Reportable 06/17/20 05:34 Absolute Lymphs (auto) Not Reportable 06/17/20 05:34 Absolute Monos (auto) Not Reportable 06/17/20 05:34 Absolute Eos (auto) Not Reportable 06/17/20 05:34 Absolute Basos (auto) Not Reportable 06/17/20 05:34 Total Counted 100 06/17/20 05:34 Seg Neutrophils % Not Reportable 06/17/20 05:34 Seg Neuts % (Manual) 84 % (42-78) H 06/17/20 05:34 Band Neutrophils % 1 % (3-5) L 06/14/20 15:15 Lymphocytes % (Manual) 10 % (13-45) L 06/17/20 05:34 Monocytes % (Manual) 6 % (3-13) 06/17/20 05:34 Eosinophils % (Manual) 0 % (0-6) 06/17/20 05:34 Basophils % (Manual) 0 % (0-2) 06/17/20 05:34 Abs Neuts (Manual) 16.8 10^3/uL (1.7-8.2) H 06/17/20 05:34 Abs Lymphs (Manual) 2.0 10^3/uL (0.5-4.7) 06/17/20 05:34 Abs Monocytes (Manual) 1.2 10^3/uL (0.1-1.4) 06/17/20 05:34 Absolute Eos (Manual) 0.0 10^3/uL (0.0-0.6) 06/17/20 05:34 Abs Basophils (Manual) 0.0 10^3/uL (0.0-0.2) 06/17/20 05:34 Hypersegmented Neuts PRESENT 06/16/20 05:46 Toxic Granulation SLIGHT 06/17/20 05:34 Toxic Vacuolation PRESENT 06/15/20 04:27 Platelet Comment ADEQUATE 06/17/20 05:34 Polychromasia SLIGHT 06/16/20 05:46 Hypochromasia 1+ 06/16/20 05:46 Poikilocytosis 2+ 06/17/20 05:34 Anisocytosis 2+ 06/17/20 05:34 Microcytosis SLIGHT 06/16/20 05:46 Target Cells SLIGHT 06/17/20 05:34 Tear Drop Cells SLIGHT 06/17/20 05:34 Ovalocytes 1+ 06/17/20 05:34 Carbonic Acid 1.49 mmol/L (1.05-1.35) H 06/14/20 18:28 HCO3/H2CO3 Ratio 18:1 06/14/20 18:28 ABG pH 7.37 (7.35-7.45) 06/14/20 18:28 ABG pCO2 49.6 mmHg (35-45) H 06/14/20 18:28 ABG pO2 45.3 mmHg (80-100) L 06/14/20 18:28 ABG HCO3 27.9 mmol/L (20-24) H 06/14/20 18:28 ABG Total CO2 29.4 mmol/L (21-25) H 06/14/20 18:28 ABG O2 Saturation 79.4 % (94-98) L 06/14/20 18:28 ABG Base Excess 1.9 mmol/L 06/14/20 18:28 VBG pH 7.37 (7.30-7.42) 06/14/20 16:23 VBG pCO2 57.0 mmHg (35-63) 06/14/20 16:23 VBG HCO3 31.8 mmol/L (20-32) 06/14/20 16:23 VBG Base Excess 4.8 mmol/L 06/14/20 16:23 FiO2 86 06/14/20 18:28 Sodium 136.1 mmol/L (137-145) L 06/17/20 05:34 Potassium 5.0 mmol/L (3.6-5.0) 06/17/20 05:34 Chloride 94 mmol/L (98-107) L 06/17/20 05:34 Carbon Dioxide 32 mmol/L (22-30) H 06/17/20 05:34 Anion Gap 10 (5-19) 06/17/20 05:34 BUN 22 mg/dL (7-20) H 06/17/20 05:34 Creatinine 0.56 mg/dL (0.52-1.25) 06/17/20 05:34 Est GFR ( Amer) > 60 (>60) 06/17/20 05:34 Est GFR (MDRD) Non-Af > 60 (>60) 06/17/20 05:34 Glucose 324 mg/dL (75-110) H 06/17/20 05:34 POC Glucose 413 mg/dL (70-110) H* 06/17/20 11:23 Calcium 9.7 mg/dL (8.4-10.2) 06/17/20 05:34 Total Bilirubin 1.1 mg/dL (0.2-1.3) 06/14/20 15:15 Direct Bilirubin 0.4 mg/dL (0.0-0.4) 06/14/20 15:15 Neonat Total Bilirubin Not Reportable 06/14/20 15:15 Neonat Direct Bilirubin Not Reportable 06/14/20 15:15 Neonat Indirect Bili Not Reportable 06/14/20 15:15 AST 75 U/L (14-36) H 06/14/20 15:15 ALT 107 U/L (<35) H 06/14/20 15:15 Alkaline Phosphatase 283 U/L (38-126) H 06/14/20 15:15 Troponin I 0.016 ng/mL 06/14/20 15:15 NT-Pro-B Natriuret Pep 191 pg/mL (<125) H 06/14/20 15:15 Total Protein 7.6 g/dL (6.3-8.2) 06/14/20 15:15 Albumin 4.3 g/dL (3.5-5.0) 06/14/20 15:15 Urine Color STRAW 06/14/20 16:50 Urine Appearance CLEAR 06/14/20 16:50 Urine pH 6.0 (5.0-9.0) 06/14/20 16:50 Ur Specific [place] 1.005 06/14/20 16:50 Urine Protein NEGATIVE mg/dL (NEGATIVE) 06/14/20 16:50 Urine Glucose (UA) 50 mg/dL (NEGATIVE) H 06/14/20 16:50 Urine Ketones NEGATIVE mg/dL (NEGATIVE) 06/14/20 16:50 Urine Blood NEGATIVE (NEGATIVE) 06/14/20 16:50 Urine Nitrite NEGATIVE (NEGATIVE) 06/14/20 16:50 Urine Bilirubin NEGATIVE (NEGATIVE) 06/14/20 16:50 Urine Urobilinogen NEGATIVE mg/dL (<2.0) 06/14/20 16:50 Ur Leukocyte Esterase NEGATIVE (NEGATIVE) 06/14/20 16:50 Urine WBC (Auto) 1 /HPF 06/14/20 16:50 Urine RBC (Auto) 0 /HPF 06/14/20 16:50 Urine Bacteria (Auto) TRACE /HPF 06/14/20 16:50 Squamous Epi Cells Auto <1 /HPF 06/14/20 16:50 Urine Mucus (Auto) RARE /LPF 06/14/20 16:50 Urine Ascorbic Acid NEGATIVE (NEGATIVE) 06/14/20 16:50 06/14/20 15:15 Troponin I 0.016 NT-Pro-B Natriuret Pep 191 H Impressions: Chest X-Ray 06/14/20 15:25 IMPRESSION: No interval change. Moderate diffuse chronic interstitial change. Plan Time Spent: Greater than 30 Minutes - Follow-up with the Dr. Guardado Continues the current medications Stroke Is this a Stroke Patient?: No Acute Heart Failure Is this a Heart Failure Patient?: No
[2020-06-17] MEDS ORDERED: DOXYCYCLINE HYCLATE 100 MG TABLET PO ONE (13:15)
--- NOTE | 2020-06-17 13:31 | PDOC CONSULTATION ---
Consultation Consult Date: 06/16/20 Attending physician:: FANI CEDENO Provider Consulted: DARWIN SANCHEZ Consult reason:: Sarcoidosis/hypoxia History of Present Illness Admission Date/PCP: 06/14/20 20:20 SHELDON WILHELM History of Present Illness: TRE WARREN is a 44 year old female longstanding history of sarcoidosis maintained on 10 mg of prednisone every attempt to wean prednisone is subsequently resolved in his hospital admission. She presented to the emergency room this time complaining of cough increasing shortness of breath which have been progressive for the last 3 days with fever but no chills cough was occasionally productive of yellow phlegm but no hemoptysis PPD is negative dates unknown no history of chronic lung disease as a child or adolescent patient admits exposure to passive smoke as a child but not as an adult. She has 1 dog no recent travel no significant occupational history of exposure to potential respiratory toxins. She carries a diagnosis of obstructive sleep apnea and wears CPAP at home. Past Medical History Cardiac Medical History: Reports: Congestive Heart Failure Pulmonary Medical History: Reports: Asthma, Bronchitis, Chronic Obstructive Pulmonary Disease (COPD), Respiratory Failure Endocrine Medical History: Reports: Diabetes Mellitus Type 2 GI Medical History: Reports: Gastroesophageal Reflux Disease Skin Medical History: Reports: Eczema Psychiatric Medical History: Denies: Depression Hematology: Reports: Anemia Infectious Medical History: Denies: Clostridium Difficile, Vancomycin-Resistant Enterococci Past Surgical History Past Surgical History: Reports: Hysterectomy Social History Information Source: Patient, [facility] Records Smoking Status: Never Smoker Passive smoke exposure as: Both Frequency of Alcohol Use: None Hx Recreational Drug Use: No Drugs: None Hx Prescription Drug Abuse: No Do you have pets?: Yes Have you had any respiratory illnesses as a child?: No Have you been exposed to any sick contacts recently?: No Have you had any recent respiratory illnesses?: Yes Have you travelled outside of [place] in the past 12 months?: No Family History Family History: Hyperlipidemia, Hypertension Parental Family History Reviewed: Yes Children Family History Reviewed: Yes Sibling(s) Family History Reviewed.: Yes Medication/Allergy Home Medications: Albuterol Sulfate [Albuterol Sulfate Hfa] 2 puff IH QID 06/14/20 Amlodipine Besylate [Norvasc 5 mg Tablet] 5 mg PO DAILY 06/14/20 Budesonide/Formoterol Fumarate [Symbicort HFA 160-4.5 mcg Inhaler 6 gm] 2 puff IH Q12 06/14/20 Sitagliptin Phos/Metformin HCl [Janumet Xr 50-1,000 mg Tablet] 1 each PO BID 06/14/20 Doxycycline Hyclate 100 mg PO BID #14 tablet. 06/17/20 Doxycycline Hyclate [Vibramycin 100 mg Tablet] 100 mg PO Q12 #14 06/17/20 Prednisone [Deltasone 20 mg Tablet] 30 mg PO DAILY #30 tablet 06/17/20 Allergies/Adverse Reactions: No Known Allergies Allergy (Verified 07/08/18 00:26) Review of Systems Constitutional: ABSENT: anorexia, headache(s), night sweats, weakness Eyes: ABSENT: as per HPI, visual disturbances, other Ears: ABSENT: as per HPI, hearing changes, other Nose, Mouth, and Throat: ABSENT: headache(s) Cardiovascular: PRESENT: dyspnea on exertion, orthropnea. ABSENT: edema, palpitations Respiratory: PRESENT: cough, sputum. ABSENT: hemoptysis Gastrointestinal: PRESENT: constipation, heartburn. ABSENT: nausea, vomiting Musculoskeletal: ABSENT: joint swelling Integumentary: ABSENT: lesions, pruritus, rash Psychiatric: PRESENT: depression. ABSENT: anxiety, hallucinations, homidical ideation, suicidal ideation Endocrine: ABSENT: cold intolerance, heat intolerance Hematologic/Lymphatic: ABSENT: easy bleeding, easy bruising Physical Exam Vital Signs: Temp Pulse Resp BP Pulse Ox 98.3 F 103 H 15 127/85 H 93 06/17/20 11:20 06/17/20 12:44 06/17/20 12:44 06/17/20 11:20 06/17/20 12:44 Intake & Output 06/16/20 06/17/20 06/18/20 06:59 06:59 06:59 Intake Total 2300 2670 Balance 2300 2670 Weight 94.4 kg 110 kg General appearance: PRESENT: no acute distress, cooperative, disheveled, morbidly obese, well-developed, well-nourished Head exam: PRESENT: atraumatic, normocephalic Eye exam: PRESENT: conjunctiva pale, EOMI. ABSENT: nystagmus, periorbital swelling, scleral icterus Mouth exam: PRESENT: dry mucosa, neck supple, tongue midline Neck exam: ABSENT: carotid bruit, full ROM, JVD, lymphadenopathy, meningismus, tenderness, thyromegaly, tracheal deviation, tracheostomy, other Respiratory exam: PRESENT: decreased breath sounds, prolonged expiratory phas, rhonchi, symmetrical, unlabored. ABSENT: retraction, stridor, tachypnea Cardiovascular exam: PRESENT: RRR, +S1, +S2, tachycardia Pulses: PRESENT: normal radial pulses GI/Abdominal exam: PRESENT: soft. ABSENT: guarding, mass, rebound, tenderness Extremities exam: ABSENT: calf tenderness, clubbing, joint swelling, pedal edema, tenderness Musculoskeletal exam: ABSENT: deformity, dislocation Neurological exam: PRESENT: alert, awake Psychiatric exam: PRESENT: appropriate affect Skin exam: PRESENT: dry, warm Results Laboratory Results: 06/17/20 05:34 06/17/20 05:34 06/17/20 06/17/20 05:34 05:34 WBC 20.0 H RBC 4.62 Hgb 11.3 L Hct 35.8 L MCV 78 L MCH 24.4 L MCHC 31.5 L RDW 19.5 H Plt Count 302 Seg Neutrophils % Not Reportable Sodium 136.1 L Potassium 5.0 Chloride 94 L Carbon Dioxide 32 H Anion Gap 10 BUN 22 H Creatinine 0.56 Est GFR ( Amer) > 60 Glucose 324 H Calcium 9.7 06/14/20 15:15 Troponin I 0.016 NT-Pro-B Natriuret Pep 191 H Impressions: Chest X-Ray 06/14/20 15:25 IMPRESSION: No interval change. Moderate diffuse chronic interstitial change. Assessment & Plan - Diagnosis (1) Acute on chronic respiratory failure with hypoxemia Is this a current diagnosis for this admission?: Yes Plan: Maintained at home on 8 L per Oxymizer currently on 9 L per Oxymizer (2) Sarcoidosis of lung Is this a current diagnosis for this admission?: Yes Plan: Patient feeling much better several attempts to wean completely off of prednisone have been unsuccessful in her is resulted in rehospitalization she is dependent on prednisone at least 10 mg a day - Time Time Spent with patient: 50 minutes
[2020-06-17] MEDS: DOXYCYCLINE HYCLATE 100 MG TABLET PO SCH (14:11)
[2020-06-17] MEDS ORDERED: FAMOTIDINE 20 MG TABLET PO SCH (22:00)
== END 2020-06-17 17:31 | disposition home or self-care (01) | DRG 196 ==
LOC: ER 14:56 → EH 20:20 → 3S 22:58
PROVIDERS: ADMIT Family Medicine; ATTEND Family Medicine
PROC: 5A09457 Assistance with Respiratory Ventilation, 24-96 Consecutive Hours, Continuous Positive Airway Pressure (ICD-10-PCS; principal; 2020-06-16)
DX: D86.89 Sarcoidosis of other sites (principal); J96.21 Acute and chronic respiratory failure with hypoxia; E66.2 Morbid (severe) obesity with alveolar hypoventilation; I50.32 Chronic diastolic (congestive) heart failure; J44.9 Chronic obstructive pulmonary disease, unspecified; R94.5 Abnormal results of liver function studies; E11.9 Type 2 diabetes mellitus without complications; I11.0 Hypertensive heart disease with heart failure; Z79.84 Long term (current) use of oral hypoglycemic drugs; Z99.81 Dependence on supplemental oxygen; Z79.52 Long term (current) use of systemic steroids; Z87.891 Personal history of nicotine dependence; Z82.49 Family history of ischemic heart disease and other diseases of the circulatory system; Z79.899 Other long term (current) drug therapy
CPT/HCPCS: 36415; 71045; 80048; 80053; 81001; 82803; 82962; 83880; 84484; 85025; 87040; 93005; 93010; 94640; 94660; 96374; 99285; J0692; J1650; J1815; J2920; J2930; J3490; J7512; S0028

== ENCOUNTER 2020-08-13 21:09 | Emergency (ER) | payer MEDICARE, MEDICAID ==
--- NOTE | 2020-08-13 22:02 | ER Document Report ---
ED General - General Stated Complaint: TROUBLE BREATHING Time Seen by Provider: 08/13/20 21:51 Primary Care Provider: BOB CACERES PA [NO LOCAL MD] - Follow up as needed TRAVEL OUTSIDE OF THE [place] IN LAST 30 DAYS: No - HPI Notes: 44-year-old female presents with shortness of breath. Patient has sarcoidosis, she is chronically on supplemental oxygen 6 to 8 L nasal cannula. She called EMS because she had shortness of breath increasing from her baseline, is mostly dyspnea on exertion. Apparently was 83% at home when EMS arrived. Patient is on chronic prednisone, she states she is on 20 mg daily, last increased about 2 months ago from 10 mg. She notes her feet have been puffy which typically happens when she is on prednisone. She denies any known Covid exposures. EMS gave a tour vent, albuterol, and Solu-Medrol 125 mg. Patient reports she is markedly improved and already feeling better. - Related Data Allergies/Adverse Reactions: No Known Allergies Allergy (Verified 07/08/18 00:26) Past Medical History - General Information source: Patient - Social History Smoking Status: Unknown if Ever Smoked Family History: Hyperlipidemia, Hypertension - Past Medical History Cardiac Medical History: Reports: Hx Congestive Heart Failure Pulmonary Medical History: Reports: Hx Asthma, Hx Bronchitis, Hx COPD, Hx Respiratory Failure Endocrine Medical History: Reports: Hx Diabetes Mellitus Type 2 Renal/ Medical History: Denies: Hx Peritoneal Dialysis GI Medical History: Reports: Hx Gastroesophageal Reflux Disease Skin Medical History: Reports Hx Eczema Psychiatric Medical History: Denies: Hx Depression Infectious Medical History: Denies: Hx C-Diff, Hx VRE Past Surgical History: Reports: Hx Gynecologic Surgery - fibroids, Hx Hysterectomy, Hx Thyroid Surgery Review of Systems - Review of Systems Constitutional: denies: Chills, Fever EENT: No symptoms reported Cardiovascular: denies: Chest pain Respiratory: Short of breath Gastrointestinal: denies: Abdominal pain Genitourinary: No symptoms reported Female Genitourinary: No symptoms reported Musculoskeletal: No symptoms reported Skin: No symptoms reported Hematologic/Lymphatic: No symptoms reported Neurological/Psychological: No symptoms reported Physical Exam - Vital signs Vitals: Temp 98.6 F 08/13/20 21:09 - General General appearance: Appears well, Alert In distress: None - HEENT Head: Normocephalic, Atraumatic Extraocular movements intact: Yes Pupils: PERRL - Respiratory Respiratory status: Other - Able to speak in full sentences. No: Labored Breath sounds: Decreased air movement - Generally - Cardiovascular Rhythm: Regular Heart sounds: Normal auscultation - Abdominal Inspection: Obese Tenderness: Nontender - Extremities General lower extremity: No: Edema - Neurological Neuro grossly intact: Yes Cognition: Normal Orientation: AAOx4 - Psychological Associated symptoms: Normal affect - Skin Skin Temperature: Warm Course - Re-evaluation Re-evalutation: 44-year-old female history of sarcoidosis here with dyspnea on exertion increased from baseline, acute onset today. Receive treatment with EMS and is already feeling better, she is actually asking if she can go home. Her oxygen saturations are appropriate on supplemental oxygen. She has overall decreased air movement, however she has no signs of respiratory distress and is able to speak in full sentences. Will obtain chest x-ray to assure that no occult consolidation is present. She refused Covid testing. 08/14/20 00:38 Slight leukocytosis, possible due to prednisone. Chest x-ray without consolidation No elevation of BNP I went to reassess patient, she reports she is still feeling well/improved and I would like to go home at this time. She states that she has upcoming follow-up with her doctor. I discussed strict return precautions, stable time of discharge. - Vital Signs Vital signs: Temp Pulse Resp BP Pulse Ox 98.4 F 102 H 25 H 155/85 H 99 08/14/20 01:26 08/14/20 01:26 08/14/20 01:26 08/14/20 01:26 08/14/20 01:26 - Laboratory Results Result Diagrams: 08/13/20 21:37 08/13/20 21:37 Laboratory Results Interpreted: 08/13/20 08/13/20 08/13/20 21:37 21:37 23:55 WBC 16.3 H Hgb 11.6 L MCV 77 L MCH 24.4 L MCHC 31.7 L RDW 17.0 H Lymph % (Auto) 10.1 L Absolute Neuts (auto) 13.4 H Seg Neutrophils % 82.2 H Chloride 96 L Carbon Dioxide 36 H Glucose 226 H AST 65 H ALT 96 H Alkaline Phosphatase 232 H Urine Protein 100 H Urine Glucose (UA) 150 H Urine Ketones TRACE H Ur Leukocyte Esterase SMALL H Critical Laboratory Results Reviewed: No Critical Results - Radiology Results Critical Radiology Results Reviewed: No Critical Results - EKG Interpretation by Me Additional EKG results interpreted by me: EKG is interpreted by me. Sinus tachycardia, rate 111. Narrow QRS, QTC within normal limits. No ST segment elevation or depression. Discharge - Discharge Clinical Impression: Shortness of breath Disposition: HOME, SELF-CARE Additional Instructions: Please continue all medications as prescribed. Please return to the emergency department immediately for any concerning worsening symptoms. Referrals: BOB CACERES PA [NO LOCAL MD] - Follow up as needed
[2020-08-13 22:14] LABS: ABSOLUTE EOSINOPHILS # (AUTO) 0.1 10^3/uL (0.0-0.6); ABSOLUTE LYMPHOCYTES (AUTO) 1.6 10^3/uL (0.5-4.7); ABSOLUTE MONOCYTES (AUTO) 1.1 10^3/uL (0.1-1.4); ABSOLUTE NEUT (AUTO) 13.4 10^3/uL (1.7-8.2); BASOPHILS % (AUTO) 0.2 % (0-2); EOSINOPHILS % (AUTO) 0.6 % (0-6); HEMATOCRIT 36.5 % (36.0-47.0); HEMOGLOBIN 11.6 g/dL (12.0-15.5); LYMPHOCYTES % (AUTO) 10.1 % (13-45); MEAN CORPUSCULAR HEMOGLOBIN 24.4 pg (27.0-33.4); MEAN CORPUSCULAR HGB CONC 31.7 g/dL (32.0-36.0); MEAN CORPUSCULAR VOLUME 77 fl (80-97); MONOCYTES % (AUTO) 6.9 % (3-13); PLATELET COUNT 321 10^3/uL (150-450); RED BLOOD COUNT 4.75 10^6/uL (3.72-5.28); SEGMENTED NEUTROPHILS % (AUTO) 82.2 % (42-78); TOTAL CELLS COUNTED % (AUTO) 100 %; WHITE BLOOD COUNT 16.3 10^3/uL (4.0-10.5)
[2020-08-13 22:21] LABS: ALBUMIN 4.3 g/dL (3.5-5.0); ALKALINE PHOSPHATASE 232 U/L (38-126); ANION GAP 9 (5-19); ASPARTATE AMINO TRANSFERASE 65 U/L (14-36); BILIRUBIN,DIRECT 0.4 mg/dL (0.0-0.4); BILIRUBIN,TOTAL 0.6 mg/dL (0.2-1.3); BLOOD UREA NITROGEN 9 mg/dL (7-20); CALCIUM 9.9 mg/dL (8.4-10.2); CARBON DIOXIDE 36 mmol/L (22-30); CHLORIDE 96 mmol/L (98-107); GLUCOSE 226 mg/dL (75-110); POTASSIUM 4.1 mmol/L (3.6-5.0); TOTAL PROTEIN 7.4 g/dL (6.3-8.2)
--- NOTE | 2020-08-13 23:48 | RADIOLOGY REPORT (SQ) ---
EXAM DESCRIPTION: XR CHEST 1 VIEW COMPLETED DATE/TME: 08/13/2020 23:01 CLINICAL HISTORY: 44 years, Female, SOB COMPARISON: 06/14/2020 chest NUMBER OF VIEWS: 1 TECHNIQUE: Portable chest LIMITATIONS: None. FINDINGS: The heart size is stable. Stable chronic fibrotic changes bilaterally. No pneumothorax. IMPRESSION: Stable fibrotic changes bilaterally copyright 2010 [facility] [employer]- All Rights Reserved
[2020-08-14 00:14] LABS: APPEARANCE,URINE SLIGHTLY-CLOUDY; BILIRUBIN,URINE NEGATIVE (NEGATIVE); COLOR,URINE YELLOW; GLUCOSE, URINE 150 mg/dL (NEGATIVE); KETONES,URINE TRACE mg/dL (NEGATIVE); LEUKOCYTE ESTERASE,URINE SMALL (NEGATIVE); NITRITE,URINE NEGATIVE (NEGATIVE); PROTEIN,URINE 100 mg/dL (NEGATIVE); URINE SPECIFIC GRAVITY 1.018; UROBILINOGEN,URINE NEGATIVE mg/dL (<2.0)
[2020-08-14 01:29] VITALS: BP 155/85
--- NOTE | 2020-08-14 23:29 | EKG REPORT ---
SEVERITY:- ABNORMAL ECG - SINUS TACHYCARDIA NONSPECIFIC T ABNORMALITIES, LATERAL LEADS : Confirmed by: Suresh Roman 14-Aug-2020 23:29:33
== END 2020-08-14 01:26 | disposition home or self-care (01) ==
LOC: ER 21:09
DX: J44.9 Chronic obstructive pulmonary disease, unspecified (principal); D86.9 Sarcoidosis, unspecified; E11.9 Type 2 diabetes mellitus without complications; R00.0 Tachycardia, unspecified; Z99.81 Dependence on supplemental oxygen; Z79.52 Long term (current) use of systemic steroids
CPT/HCPCS: 36415; 71045; 80053; 81001; 83880; 85025; 93005; 93010; 99285

== ENCOUNTER 2020-09-06 20:59 | Emergency (ER) | payer MEDICARE, MEDICAID ==
[2020-09-06 21:12] LABS: VENOUS BLOOD BASE EXCESS 5.8 mmol/L; VENOUS BLOOD HCO3 31.4 mmol/L (20-32); VENOUS BLOOD PCO2 49.9 mmHg (35-63); VENOUS BLOOD PH 7.42 (7.30-7.42)
[2020-09-06 21:20] LABS: ABSOLUTE BASOPHILS # (AUTO) 0.1 10^3/uL (0.0-0.2); ABSOLUTE EOSINOPHILS # (AUTO) 0.3 10^3/uL (0.0-0.6); ABSOLUTE LYMPHOCYTES (AUTO) 1.2 10^3/uL (0.5-4.7); ABSOLUTE MONOCYTES (AUTO) 0.7 10^3/uL (0.1-1.4); ABSOLUTE NEUT (AUTO) 11.8 10^3/uL (1.7-8.2); BASOPHILS % (AUTO) 0.4 % (0-2); EOSINOPHILS % (AUTO) 1.8 % (0-6); HEMATOCRIT 37.3 % (36.0-47.0); HEMOGLOBIN 11.7 g/dL (12.0-15.5); LYMPHOCYTES % (AUTO) 8.5 % (13-45); MEAN CORPUSCULAR HEMOGLOBIN 23.5 pg (27.0-33.4); MEAN CORPUSCULAR HGB CONC 31.3 g/dL (32.0-36.0); MEAN CORPUSCULAR VOLUME 75 fl (80-97); PLATELET COUNT 344 10^3/uL (150-450); RED BLOOD COUNT 4.97 10^6/uL (3.72-5.28); RED CELL DISTRIBUTION WIDTH 16.6 % (11.5-14.0); SEGMENTED NEUTROPHILS % (AUTO) 84.3 % (42-78); TOTAL CELLS COUNTED % (AUTO) 100 %
[2020-09-06 21:36] LABS: ALKALINE PHOSPHATASE 358 U/L (38-126); ANION GAP 7 (5-19); ASPARTATE AMINO TRANSFERASE 61 U/L (14-36); BILIRUBIN,DIRECT 0.3 mg/dL (0.0-0.4); BILIRUBIN,TOTAL 0.7 mg/dL (0.2-1.3); BLOOD UREA NITROGEN 6 mg/dL (7-20); CALCIUM 9.8 mg/dL (8.4-10.2); CARBON DIOXIDE 36 mmol/L (22-30); CHLORIDE 96 mmol/L (98-107); GLUCOSE 198 mg/dL (75-110); POTASSIUM 4.6 mmol/L (3.6-5.0); TOTAL PROTEIN 7.2 g/dL (6.3-8.2)
--- NOTE | 2020-09-06 21:41 | RADIOLOGY REPORT (SQ) ---
CLINICAL INDICATION: difficulty breathing. TECHNIQUE: A single portable AP view was obtained of the chest at 2114 hours. COMPARISON: August 13, 2020. FINDINGS: The cardiomediastinal silhouette is enlarged but stable. The lungs demonstrate chronic parenchymal lung change, no adverse change. No significant pleural fluid. No pneumothorax. The visualized bones are unremarkable. IMPRESSION: No evidence of active intrathoracic disease. Chronic change, no adverse change
--- NOTE | 2020-09-06 21:54 | ER Document Report ---
ED General - General Chief Complaint: Shortness Of Breath Stated Complaint: DIFFICULTY BREATHING Time Seen by Provider: 09/06/20 21:36 Primary Care Provider: GLORIA TUBBS MD [ACTIVE STAFF] - Follow up as needed Mode of Arrival: Medic Information source: Patient TRAVEL OUTSIDE OF THE [place] IN LAST 30 DAYS: No - HPI Notes: Patient with known sarcoidosis and chronic hypoxemic respiratory failure presents complaining of worsening shortness of breath and increasing oxygen requirements over the last several days at home. She has a home oxygen concentrator but was not able to get her saturations out of the mid 80s this evening so she ultimately called EMS. They placed her on CPAP, he had administered an CHARISSA neb. Patient states that she frequently has exacerbations during the winter when the weather is cold and damp. She also talked at some length about how her oxygen concentrator at home did not seem to be developing the flow that was required especially when she was using extension tubing. She states that on a good day she needs 5 L/min by nasal cannula, somewhat less when she is using her CPAP at night with oxygen entrained into it. When she is having an exacerbation her oxygen requirement can go up considerably beyond that. She is followed by a assistant chief train dispatcher here in [place] who is not on her hospital staff and who does not take call for the emergency department. - Related Data Allergies/Adverse Reactions: No Known Allergies Allergy (Verified 07/08/18 00:26) Home Medications: Albuterol, Laxiz, Amlodipine, Multi inhalers Past Medical History - General Information source: Patient - Social History Smoking Status: Never Smoker Chew tobacco use (# tins/day): No Frequency of alcohol use: Occasional Drug Abuse: None Family History: Hyperlipidemia, Hypertension Patient has homicidal ideation: No - Past Medical History Cardiac Medical History: Reports: Hx Congestive Heart Failure Pulmonary Medical History: Reports: Hx Asthma, Hx Bronchitis, Hx COPD, Hx Respiratory Failure Other: Sarcoidosis Endocrine Medical History: Reports: Hx Diabetes Mellitus Type 2 Renal/ Medical History: Denies: Hx Peritoneal Dialysis GI Medical History: Reports: Hx Gastroesophageal Reflux Disease Skin Medical History: Reports Hx Eczema Psychiatric Medical History: Denies: Hx Depression Infectious Medical History: Denies: Hx C-Diff, Hx VRE Past Surgical History: Reports: Hx Gynecologic Surgery - fibroids, Hx Hysterectomy, Hx Thyroid Surgery Review of Systems - Review of Systems Notes: 12 point review of systems is negative or noncontributory except as noted in the history of present illness. Physical Exam - Vital signs Vitals: Temp Resp Pulse Ox 98.6 F 21 H 96 09/06/20 20:59 09/06/20 20:59 09/06/20 20:59 - Notes Notes: General: This is a well-developed somewhat obese female with a steroid facies in moderate respiratory distress on BiPAP when I initially interviewed her. Vital signs and nursing documentation are reviewed. ENT: Grossly normal to inspection. Neck: Supple trachea midline no adenopathy. Chest: Increased AP diameter. Fair air entry bilaterally with few scattered wheezes no dry rales. No wet rales or rhonchi. Heart: Regular rate and rhythm no murmur. Abdomen: Obese soft nontender no mass organomegaly. Extremities: Without clubbing cyanosis or edema. Skin: Warm moist good turgor no rashes. Neuro: No focal neuro deficits. Course - Re-evaluation Re-evalutation: 09/07/20 03:18 Patient remained on BiPAP for a couple of hours. Ultimately we were able to wean her off because her venous blood gases were actually quite good and it was clear that her main issue was requiring oxygen rather than pressure support. The rest of her work-up was normal or nondiagnostic. We attempted to contact the patient's assistant chief train dispatcher but when we called the office we were only able to reach an answering machine. 09/07/20 03:24 The patient and I discussed treatment options at some length. She is frustrated by her situation and understandably so. She adamantly refused Covid testing stating she did not want her no swab under any circumstances. She refused any increase in her steroid dose because she was concerned about controlling her blood sugar and her weight. She has a number of complaints and concerns about her oxygen equipment at home but it seems from her description that it is functioning as intended and her oxygen requirement is simply increasing over time as one might expect because of her disease. I offered her admission to the hospital but she declined stating that she would rather go home and feel poorly and comfortable in familiar circumstances. She was quite adamant with the nursing staff also stating that she was going home regardless of what her oxygen saturation levels were. She should continue her home medications and oxygen regimen and should follow-up with her assistant chief train dispatcher office on Wednesday. - Vital Signs Vital signs: Temp Pulse Resp BP Pulse Ox 98.6 F 26 H 140/91 H 97 09/06/20 20:59 09/06/20 22:01 09/06/20 22:01 09/06/20 22:01 - Laboratory Results Result Diagrams: 09/06/20 21:03 09/06/20 21:03 Laboratory Results Interpreted: 09/06/20 09/06/20 09/06/20 21:03 21:03 21:03 WBC 14.0 H Hgb 11.7 L MCV 75 L MCH 23.5 L MCHC 31.3 L RDW 16.6 H Lymph % (Auto) 8.5 L Absolute Neuts (auto) 11.8 H Seg Neutrophils % 84.3 H Chloride 96 L Carbon Dioxide 36 H BUN 6 L Glucose 198 H AST 61 H ALT 99 H Alkaline Phosphatase 358 H C-Reactive Protein 61.5 H Critical Laboratory Results Reviewed: No Critical Results - Radiology Results Radiology Results Interpreted: 09/07/20 03:20 Chest X-Ray 09/06/20 21:04 IMPRESSION: No evidence of active intrathoracic disease. Chronic change, no adverse change Critical Radiology Results Reviewed: No Critical Results Discharge - Discharge Clinical Impression: Acute on chronic respiratory failure with hypoxemia Condition: Stable Disposition: HOME, SELF-CARE Additional Instructions: Continue your current medications as prescribed. Contact your assistant chief train dispatcher on Wednesday for follow-up. The offer to adjust your prednisone dose and the offer to perform a Covid test are both still open to you if you choose to take advantage of them. You may return to the emergency department at any time if you feel your condition warrants it. Return if any other concerning symptoms develop. Referrals: GLORIA TUBBS MD [ACTIVE STAFF] - Follow up as needed
[2020-09-06 22:14] LABS: C-REACTIVE PROTEIN 61.5 mg/L (<10.0)
[2020-09-06 22:47] LABS: FERRITIN 28.4 ng/mL (6.2-137.0)
[2020-09-06 23:15] LABS: APPEARANCE,URINE CLEAR; BILIRUBIN,URINE NEGATIVE (NEGATIVE); COLOR,URINE STRAW; GLUCOSE, URINE NEGATIVE (NEGATIVE); KETONES,URINE NEGATIVE (NEGATIVE); LEUKOCYTE ESTERASE,URINE NEGATIVE (NEGATIVE); NITRITE,URINE NEGATIVE (NEGATIVE); PROTEIN,URINE NEGATIVE (NEGATIVE); URINE SPECIFIC GRAVITY 1.005; UROBILINOGEN,URINE NEGATIVE mg/dL (<2.0)
[2020-09-07 03:59] VITALS: BP 138/86
--- NOTE | 2020-09-07 08:16 | EKG REPORT ---
SEVERITY:- OTHERWISE NORMAL ECG - SINUS TACHYCARDIA : Confirmed by: Bam Alcantar MD 07-Sep-2020 08:15:53
== END 2020-09-07 04:48 | disposition home or self-care (01) ==
LOC: ER 20:59
DX: J96.20 Acute and chronic respiratory failure, unspecified whether with hypoxia or hypercapnia (principal); D86.9 Sarcoidosis, unspecified; I50.9 Heart failure, unspecified; E11.9 Type 2 diabetes mellitus without complications; Z99.81 Dependence on supplemental oxygen
CPT/HCPCS: 36415; 71045; 80053; 81001; 82728; 82803; 84484; 85025; 85379; 86140; 93005; 93010; 99285